=== PATIENT | female | born 1945 | race Caucasian/White ===

== ENCOUNTER 2017-03-10 09:10 | Emergency (ER) | payer MEDICARE, OTHER ==
[~2017-03-10] VITALS: Ht 165.1 cm; Wt 81.0 kg
[~2017-03-10 09:10] MED LIST: AMLO2.5T PO; DONE5TAB14 PO; ECOT81TA2 PO; FERR324T4 PO; HCTZ25 PO; ISOS30 PO; LISI10 PO; PRAV20 PO; RIVA15 PO; SPIR50TA21 PO; SUPETAB30 PO; VITA400D PO
[2017-03-10 09:13] VITALS: BP 137/67; PULSE 42; RESP 18; TEMP 97.7; O2SAT 98
[2017-03-10] MEDS ORDERED: FERR325C (09:25)
[2017-03-10] MEDS ORDERED: DONE10TA7 PO (09:30)
[2017-03-10] MEDS ORDERED: PRAV20TA2 PO (09:30)
[2017-03-10] MEDS ORDERED: JANT2TAB PO (09:30)
[2017-03-10] MEDS ORDERED: SPIR50TA PO (09:30)
[2017-03-10] MEDS ORDERED: ONE-TAB PO (09:30)
[2017-03-10] MEDS ORDERED: METF1000 PO (09:30)
[2017-03-10] MEDS ORDERED: LISI-519 PO (09:30)
[2017-03-10] MEDS ORDERED: CHOL1CAP6 PO (09:30)
[2017-03-10] MEDS ORDERED: hydrALAZINE HCL 20 MG/ML VIAL IV PUSH ONE (09:45)
--- NOTE | 2017-03-10 09:45 | PD ---
HPI Chief Complaint: GI Complaint Time Seen by Provider: 09:20 Travel History International Travel<30 days: No Contact w/Intl Traveler<30days: No Traveled to known affect area: No History of Present Illness HPI 71yo F with PMH of afib on warfarin, HTN, dementia presents to the ED with one episode of NBNB vomiting. Pt denies any fever, dizziness, chest pain, sob, nausea currently, abdominal pain, blood in stool, dysuria, hematuria, focal weakness or numbness. Pt follows with metal coater Dr. Magana. Pt has a history of bradycardia and was evaluated by Dr. Magana in 2014 when she was admitted and pacemaker was not indicated since she is not symptomatic. PFSH Past Medical History Hx Anticoagulant Therapy: Yes (COUMADIN AND XARELTO) Heart Rhythm Problems: No Cancer: No Cardiovascular Problems: Yes ([place], QUADRUPLE BYPASS 2013, A-) High Cholesterol: No Chemotherapy: No Chest Pain: No Congestive Heart Failure: No Cerebrovascular Accident: No Coronary Artery Disease: Yes Dementia: Yes (per family) Diabetes: Yes (TYPE II) Patient Takes Glucophage: Yes Diminished Hearing: No Endocrine: Yes Gastrointestinal Disorders: No Genitourinary: No Hypertension: Yes Immune Disorder: No Musculoskeletal: No Neurologic: No Psychiatric: No Reproductive: No Respiratory: Yes (pulmonary nodule) Renal Failure: Yes (stage 3) Seizures: Yes Influenza Vaccination: Yes ?: Not Past Surgical History Appendectomy: Yes Cholecystectomy: Yes Coronary Artery Bypass Graft: Yes (2013) Other Surgery: Yes Social History Alcohol Use: No Tobacco Use: No (quit 30 yrs ago) Substance Use: No Allergies-Medications (Allergen,Severity, Reaction): Coded Allergies: Codeine (Verified Allergy, Mild, 03/10/17) Penicillin (Verified Allergy, Mild, 03/10/17) Sulfa (Verified Allergy, Mild, 03/10/17) Reported Meds & Prescriptions Reported Meds & Active Scripts Active Reported Vitamin D-3 (Cholecalciferol) 1,000 Unit Cap 1,000 PO DAILY Donepezil 10 Mg Tab 10 Mg PO HS Metformin (Metformin HCl) 1,000 Mg Tab 1,000 Mg PO BIDPC With meals Spironolactone 50 Mg Tab 50 Mg PO DAILY Jantoven (Warfarin) 2 Mg Tab 2 Mg PO DAILY Lisinopril 5 Mg Tab 5 Mg PO DAILY Pravastatin 20 Mg Tab 20 Mg PO HS One-A-Day Essential (Multiple Vitamin) 1 Tab 1 Tab PO DAILY Iron (Ferrous Sulfate) 325 Mg Capsule.er 325 Mg Review of Systems Except as stated in HPI: all other systems reviewed are Neg Physical Exam Narrative GENERAL: 71yo F not in distress. SKIN: Focused skin assessment warm/dry. HEAD: Atraumatic. Normocephalic. EYES: Pupils equal and round. EOMI. No scleral icterus. No injection or drainage. ENT: No nasal bleeding or discharge. Mucous membranes pink and moist. NECK: Trachea midline. No JVD. CARDIOVASCULAR: Regular rate and rhythm. No murmur appreciated. RESPIRATORY: No accessory muscle use. Clear to auscultation. Breath sounds equal bilaterally. GASTROINTESTINAL: Abdomen soft, non-tender, nondistended. No rebound tenderness or guarding. MUSCULOSKELETAL: No obvious deformities. No clubbing. No cyanosis. No edema. NEUROLOGICAL: Awake and alert. No obvious cranial nerve deficits. Motor grossly within normal limits. Normal speech. AAOx3. PSYCHIATRIC: Appropriate mood and affect; insight and judgment normal. Data Data Last Documented VS Vital Signs Date Time Temp Pulse Resp B/P Pulse Ox O2 Delivery O2 Flow Rate FiO2 03/10/17 10:12 52 16 168/87 99 Room Air 03/10/17 09:13 97.7 Orders Electrocardiogram (03/10/17 ) Complete Blood Count With Diff (03/10/17 09:36) Basic Metabolic Panel (Bmp) (03/10/17 09:36) Lipase (03/10/17 09:36) Prothrombin Time / Inr (Pt) (03/10/17 09:36) Act Partial Throm Time (Ptt) (03/10/17 09:36) Hydralazine Inj (Apresoline Inj) (03/10/17 09:45) Labs Laboratory Tests Test 03/10/17 09:30 White Blood Count 10.3 TH/MM3 Red Blood Count 4.10 MIL/MM3 Hemoglobin 12.5 GM/DL Hematocrit 36.9 % Mean Corpuscular Volume 90.0 FL Mean Corpuscular Hemoglobin 30.4 PG Mean Corpuscular Hemoglobin 33.8 % Concent Red Cell Distribution Width 12.9 % Platelet Count 258 TH/MM3 Mean Platelet Volume 9.0 FL Neutrophils (%) (Auto) 69.5 % Lymphocytes (%) (Auto) 21.9 % Monocytes (%) (Auto) 5.4 % Eosinophils (%) (Auto) 2.6 % Basophils (%) (Auto) 0.6 % Neutrophils # (Auto) 7.0 TH/MM3 Lymphocytes # (Auto) 2.3 TH/MM3 Monocytes # (Auto) 0.6 TH/MM3 Eosinophils # (Auto) 0.3 TH/MM3 Basophils # (Auto) 0.1 TH/MM3 CBC Comment DIFF FINAL Differential Comment Prothrombin Time 17.0 SEC Prothromb Time International 1.5 RATIO Ratio Activated Partial 31.5 SEC Thromboplast Time Sodium Level 143 MEQ/L Potassium Level 4.5 MEQ/L Chloride Level 107 MEQ/L Carbon Dioxide Level 28.2 MEQ/L Anion Gap 8 MEQ/L Blood Urea Nitrogen 23 MG/DL Creatinine 0.88 MG/DL Estimat Glomerular Filtration 63 ML/MIN Rate Random Glucose 132 MG/DL Calcium Level 9.5 MG/DL Lipase 224 U/L MDM Medical Decision Making Medical Screen Exam Complete: Yes Emergency Medical Condition: Yes Interpretation(s) EKG: Afib at 46bpm. RBBB. Laboratory Tests Test 03/10/17 09:30 White Blood Count 10.3 TH/MM3 (4.0-11.0) Red Blood Count 4.10 MIL/MM3 (4.00-5.30) Hemoglobin 12.5 GM/DL (11.6-15.3) Hematocrit 36.9 % (35.0-46.0) Mean Corpuscular Volume 90.0 FL (80.0-100.0) Mean Corpuscular Hemoglobin 30.4 PG (27.0-34.0) Mean Corpuscular Hemoglobin 33.8 % Concent (32.0-36.0) Red Cell Distribution Width 12.9 % (11.6-17.2) Platelet Count 258 TH/MM3 (150-450) Mean Platelet Volume 9.0 FL (7.0-11.0) Neutrophils (%) (Auto) 69.5 % (16.0-70.0) Lymphocytes (%) (Auto) 21.9 % (9.0-44.0) Monocytes (%) (Auto) 5.4 % (0.0-8.0) Eosinophils (%) (Auto) 2.6 % (0.0-4.0) Basophils (%) (Auto) 0.6 % (0.0-2.0) Neutrophils # (Auto) 7.0 TH/MM3 (1.8-7.7) Lymphocytes # (Auto) 2.3 TH/MM3 (1.0-4.8) Monocytes # (Auto) 0.6 TH/MM3 (0-0.9) Eosinophils # (Auto) 0.3 TH/MM3 (0-0.4) Basophils # (Auto) 0.1 TH/MM3 (0-0.2) CBC Comment DIFF FINAL Differential Comment Prothrombin Time 17.0 SEC (9.8-11.6) Prothromb Time International 1.5 RATIO Ratio Activated Partial 31.5 SEC Thromboplast Time (24.3-30.1) Sodium Level 143 MEQ/L (136-145) Potassium Level 4.5 MEQ/L (3.5-5.1) Chloride Level 107 MEQ/L (98-107) Carbon Dioxide Level 28.2 MEQ/L (21.0-32.0) Anion Gap 8 MEQ/L (5-15) Blood Urea Nitrogen 23 MG/DL (7-18) Creatinine 0.88 MG/DL (0.50-1.00) Estimat Glomerular Filtration 63 ML/MIN (>89) Rate Random Glucose 132 MG/DL (74-106) Calcium Level 9.5 MG/DL (8.5-10.1) Lipase 224 U/L (73-393) Differential Diagnosis Dehydration vs. electrolyte abnormality Narrative Course 71yo F brought in by son because he saw vomit on her this morning. States he did give her spicy food last night. Pt is AAOx3 but has dementia and states she does not remember when she vomited. Pt has no complaints. Labs reviewed, no leukocytosis. BUN mildly elevated at 23. INR subtherapeutic at 1.5. Explained to son to have her follow up with PMD regarding this. The son mentioned that she had some blood and looked like it was from the vagina. However, pt does not want a pelvic exam. I explained to pt and son to have them follow up with [employer] if she is having postmeopausal bleeding because it could be malignancy. BP was very high with systolic in the 200s and pt was given hydralazine 10mg IV. Repeat blood pressure was 168/87. Pt is still asymptomatic and abdomen is soft, nontender. HemaPrompt Point of Care Internal Pos. & Neg. Controls: Passed Fecal Specimen Occult Blood: Negative Diagnosis Primary Impression: Routine medical exam Patient Instructions: General Instructions Departure Forms: Tests/Procedures Additional Instructions: Please follow up with your upholsterer inside in 1-2 days for vaginal bleeding. Please return to the ED if symptoms worsen. Med/Other Pt SpecificInfo: No Change to Meds Disposition: 01 DISCHARGE HOME Condition: Stable Reyna Ceja DO Mar 10, 2017 09:45
[2017-03-10 10:02] LABS: BASOPHIL # 0.1 TH/MM3 (0-0.2); BASOPHIL % 0.6 % (0.0-2.0); EOSINOPHIL # 0.3 TH/MM3 (0-0.4); EOSINOPHIL % 2.6 % (0.0-4.0); HEMATOCRIT 36.9 % (35.0-46.0); HEMO FLAGS DIFF FINAL; LYMPH % 21.9 % (9.0-44.0); LYMPHOCYTE # 2.3 TH/MM3 (1.0-4.8); MEAN CORPUSCULAR HEMOGLOBIN 30.4 PG (27.0-34.0); MEAN CORPUSCULAR HGB CONC 33.8 % (32.0-36.0); MONO % 5.4 % (0.0-8.0); NEUT % 69.5 % (16.0-70.0); PLATELET COUNT 258 TH/MM3 (150-450); RED CELL DISTRIBUTION WIDTH 12.9 % (11.6-17.2); WHITE BLOOD COUNT 10.3 TH/MM3 (4.0-11.0)
[2017-03-10 10:10] LABS: POTASSIUM 4.5 MEQ/L (3.5-5.1)
[2017-03-10 10:12] VITALS: BP 168/87; PULSE 52; RESP 16; O2SAT 99
[2017-03-10 10:13] LABS: BICARBONATE 28.2 MEQ/L (21.0-32.0)
[2017-03-10 10:14] LABS: APTT (PATIENT) 31.5 SEC (24.3-30.1); INTERNATIONAL NORMALIZED RATIO 1.5 RATIO
[2017-03-10 11:01] VITALS: BP 160/76; PULSE 52; RESP 18; O2SAT 99
--- NOTE | 2017-03-10 13:42 | EKG ---
Date Performed: 03/10/2017 Time Performed: 09:26:14 PTAGE: 71 years EKG: ATRIAL FIBRILLATION WITH SLOW VENTRICULAR RESPONSE RIGHT BUNDLE BRANCH BLOCK ABNORMAL ECG I NTERPRETATION BASED ON A DEFAULT AGE OF 40 YEARS NO SIGNIFICANT CHANGE FROM PRIOR ELECTROCARDIOGRAM. PREVIOUS TRACING : 09/14/2015 18.07 DOCTOR: Andre Felder Interpretating Date/Time 03/10/2017 13:40:27
== END 2017-03-10 11:11 | disposition home or self-care (01) ==
LOC: PHED 09:10
DX: R11.10 Vomiting, unspecified (principal); I48.91 Unspecified atrial fibrillation; I10 Essential (primary) hypertension; F03.90 Unspecified dementia, unspecified severity, without behavioral disturbance, psychotic disturbance, mood disturbance, and anxiety; I25.10 Atherosclerotic heart disease of native coronary artery without angina pectoris; E11.9 Type 2 diabetes mellitus without complications; I45.10 Unspecified right bundle-branch block; N95.0 Postmenopausal bleeding; Z87.891 Personal history of nicotine dependence; Z79.01 Long term (current) use of anticoagulants
CPT/HCPCS: 80048; 83690; 85025; 85610; 85730; 93005; 96374; 99284; J0360

== ENCOUNTER 2017-06-29 11:17 | Emergency (ER) | payer OTHER ==
[~2017-06-29] VITALS: Ht 165.1 cm; Wt 77.2 kg
[~2017-06-29 11:17] MED LIST changes: -AMLO2.5T PO; +CHOL1CAP6 PO; +DONE10TA7 PO; -DONE5TAB14 PO; -ECOT81TA2 PO; -FERR324T4 PO; +FERR325C; -HCTZ25 PO; -ISOS30 PO; +JANT2TAB PO; +LISI-519 PO; -LISI10 PO; +METF1000 PO; +ONE-TAB PO; -PRAV20 PO; +PRAV20TA2 PO; -RIVA15 PO; +SPIR50TA PO; -SPIR50TA21 PO; -SUPETAB30 PO; -VITA400D PO
[2017-06-29 11:41] VITALS: BP 224/89; PULSE 48; RESP 16; TEMP 98.8; O2SAT 98
[2017-06-29] MEDS ORDERED: NIFEdipine 20 MG CAP PO ONE (11:45)
[2017-06-29 11:55] LABS: AUTOMATED NEUTROPHIL # 7.6 TH/MM3 (1.8-7.7); BASOPHIL % 0.5 % (0.0-2.0); EOSINOPHIL # 0.3 TH/MM3 (0-0.4); EOSINOPHIL % 2.6 % (0.0-4.0); HEMO FLAGS DIFF FINAL; LYMPH % 15.4 % (9.0-44.0); LYMPHOCYTE # 1.5 TH/MM3 (1.0-4.8); MEAN CELL VOLUME 88.1 FL (80.0-100.0); MEAN CORPUSCULAR HEMOGLOBIN 30.1 PG (27.0-34.0); MEAN CORPUSCULAR HGB CONC 34.1 % (32.0-36.0); MONO % 3.6 % (0.0-8.0); NEUT % 77.9 % (16.0-70.0); PLATELET COUNT 275 TH/MM3 (150-450); RED BLOOD COUNT 3.87 MIL/MM3 (4.00-5.30); RED CELL DISTRIBUTION WIDTH 12.7 % (11.6-17.2); WHITE BLOOD COUNT 9.7 TH/MM3 (4.0-11.0)
--- NOTE | 2017-06-29 11:57 | PD ---
HPI Chief Complaint: palpitations Time Seen by Provider: 11:32 Travel History International Travel<30 days: No Contact w/Intl Traveler<30days: No Traveled to known affect area: No History of Present Illness HPI This patient started to feel palpitations at home. It just lasted a few brief seconds. She does have history of A. fib on Coumadin. She did not have presyncopal symptoms or any chest pain. She told her son who called paramedics. She arrives very hypertensive and bradycardic. She has not had any headache. She says her palpitations have resolved. Symptoms severity was moderate but very brief. No alleviating factors. No exacerbating factors are obvious. PFSH Past Medical History Hx Anticoagulant Therapy: Yes (COUMADIN AND XARELTO) Heart Rhythm Problems: No Cancer: No Cardiovascular Problems: Yes ([place], QUADRUPLE BYPASS 2013, A-FIB) High Cholesterol: No Chemotherapy: No Chest Pain: No Congestive Heart Failure: No Cerebrovascular Accident: No Coronary Artery Disease: Yes Dementia: Yes (per family) Diabetes: Yes (TYPE II) Diminished Hearing: No Endocrine: Yes Gastrointestinal Disorders: No Genitourinary: No Hypertension: Yes Immune Disorder: No Musculoskeletal: No Neurologic: No Psychiatric: No Reproductive: No Respiratory: Yes (pulmonary nodule) Renal Failure: Yes (stage 3) Seizures: Yes ?: Not Past Surgical History Appendectomy: Yes Cholecystectomy: Yes Coronary Artery Bypass Graft: Yes (2013) Other Surgery: Yes Social History Alcohol Use: No Tobacco Use: No (quit 30 yrs ago) Substance Use: No Allergies-Medications (Allergen,Severity, Reaction): Coded Allergies: Sulfa (Sulfonamide Antibiotics) (Unverified Allergy, Mild, 05/13/17) codeine (Unverified Allergy, Mild, 05/13/17) penicillin G (Unverified Allergy, Mild, 05/13/17) Reported Meds & Prescriptions Reported Meds & Active Scripts Active Reported Jantoven (Warfarin) 2 Mg Tab 2 Mg PO MOWEFRSASU Jantoven (Warfarin) 2.5 Mg Tab 2.5 Mg PO TUTH Vitamin D-3 (Cholecalciferol) 1,000 Unit Cap 1,000 PO DAILY Donepezil 10 Mg Tab 10 Mg PO HS Metformin (Metformin HCl) 1,000 Mg Tab 1,000 Mg PO BIDPC With meals Spironolactone 50 Mg Tab 50 Mg PO DAILY Lisinopril 5 Mg Tab 5 Mg PO DAILY Pravastatin 20 Mg Tab 20 Mg PO HS One-A-Day Essential (Multiple Vitamin) 1 Tab 1 Tab PO DAILY Iron (Ferrous Sulfate) 325 Mg Capsule.er 325 Mg Review of Systems General / Constitutional: No: Fever Eyes: No: Visual changes HENT: No: Headaches Cardiovascular: Positive: Palpitations, Irregular Rhythm, No: Chest Pain or Discomfort Respiratory: No: Shortness of Breath Gastrointestinal: No: Abdominal Pain Genitourinary: No: Dysuria Musculoskeletal: No: Pain Skin: No Rash Neurologic: No: Weakness Psychiatric: No: Depression Endocrine: No: Polydipsia Hematologic/Lymphatic: No: Easy Bruising Physical Exam Narrative GENERAL: Well-nourished, well-developed patient in no apparent distress. SKIN: Focused skin assessment reveals no rash and nodules. Skin is Warm and dry. HEAD: Atraumatic. Normocephalic. EYES: Pupils equal and round. No scleral icterus. No injection or drainage. ENT: No nasal bleeding or discharge. Mucous membranes pink and moist. NECK: Trachea midline. No JVD. CARDIOVASCULAR: Irregularly irregular rhythm. No murmur appreciated. Heart rate is in the mid 40s RESPIRATORY: No accessory muscle use. Clear to auscultation. Breath sounds equal bilaterally. GASTROINTESTINAL: Abdomen soft, non-tender, nondistended. Hepatic and splenic margins not palpable. MUSCULOSKELETAL: No obvious deformities. No clubbing. No cyanosis. No edema. Has sternal scar from bypass grafting NEUROLOGICAL: Awake and alert. No obvious cranial nerve deficits. Motor grossly within normal limits. Normal speech. PSYCHIATRIC: Appropriate mood and affect; insight and judgment may be a bit reduced from dementia Data Data Last Documented VS Vital Signs Date Time Temp Pulse Resp B/P (MAP) Pulse Ox O2 Delivery O2 Flow Rate FiO2 06/29/17 12:53 46 173/66 (101) 97 06/29/17 11:41 98.8 16 Orders Orders Iv Access Insert/Monitor (06/29/17 11:38) Electrocardiogram (06/29/17 ) Manager Financial / Telemetry [email or web address] (06/29/17 11:38) Complete Blood Count With Diff (06/29/17 11:38) Basic Metabolic Panel (Bmp) (06/29/17 11:38) Prothrombin Time / Inr (Pt) (06/29/17 11:38) Nifedipine (Procardia) (06/29/17 12:00) Labs Laboratory Tests Test 06/29/17 11:50 White Blood Count 9.7 TH/MM3 Red Blood Count 3.87 MIL/MM3 Hemoglobin 11.6 GM/DL Hematocrit 34.0 % Mean Corpuscular Volume 88.1 FL Mean Corpuscular Hemoglobin 30.1 PG Mean Corpuscular Hemoglobin Concent 34.1 % Red Cell Distribution Width 12.7 % Platelet Count 275 TH/MM3 Mean Platelet Volume 8.3 FL Neutrophils (%) (Auto) 77.9 % Lymphocytes (%) (Auto) 15.4 % Monocytes (%) (Auto) 3.6 % Eosinophils (%) (Auto) 2.6 % Basophils (%) (Auto) 0.5 % Neutrophils # (Auto) 7.6 TH/MM3 Lymphocytes # (Auto) 1.5 TH/MM3 Monocytes # (Auto) 0.3 TH/MM3 Eosinophils # (Auto) 0.3 TH/MM3 Basophils # (Auto) 0.0 TH/MM3 CBC Comment DIFF FINAL Differential Comment Prothrombin Time 22.8 SEC Prothromb Time International Ratio 2.0 RATIO Blood Urea Nitrogen 20 MG/DL Creatinine 0.88 MG/DL Random Glucose 114 MG/DL Calcium Level 9.2 MG/DL Sodium Level 139 MEQ/L Potassium Level 3.7 MEQ/L Chloride Level 105 MEQ/L Carbon Dioxide Level 25.1 MEQ/L Anion Gap 9 MEQ/L Estimat Glomerular Filtration Rate 63 ML/MIN MDM Medical Decision Making Medical Screen Exam Complete: Yes Emergency Medical Condition: Yes Medical Record Reviewed: Yes Differential Diagnosis A. fib, SVT, ectopy, hypertensive urgency Narrative Course I have reviewed the patient's electronic medical record. Patient takes Coumadin for A. fib. I don't see any rate limiting medications on her medication list. She has accelerated hypertension of 224 systolic I gave her dose of Procardia Will reassess closely I reviewed her EKG which shows A. fib with a slow ventricular response of 44. No ST elevation Extended cardiac monitoring reveals bradycardic A. fib IV placed CBC is normal Metabolic profile is normal Patient is neurologically intact and other than some possible dementia I don't see an acute neurologic issue INR on Coumadin is 2.0 Patient looks clinically well. Repeat blood pressure 160s systolic I reviewed her most recent old EKG which was February 2017. She had A. fib with right bundle-branch block in the 40s just like today. Symptoms have resolved. She feels fine. She is stable for outpatient follow-up Diagnosis Primary Impression: Palpitations Additional Impressions: Chronic atrial fibrillation Accelerated hypertension Additional Instructions: The patient was advised to follow up with their physician and return if they worsen. Check and record blood pressure daily Med/Other Pt SpecificInfo: Other Disposition: 01 DISCHARGE HOME Condition: Stable Nikunj Loving MD Jun 29, 2017 11:57
[2017-06-29] MEDS ORDERED: NIFEdipine 10 MG CAP PO ONE (12:00)
[2017-06-29 12:10] LABS: POTASSIUM 3.7 MEQ/L (3.5-5.1)
[2017-06-29 12:12] LABS: BICARBONATE 25.1 MEQ/L (21.0-32.0)
[2017-06-29 12:13] LABS: PROTHROMBIN TIME - PATIENT 22.8 SEC (9.8-11.6)
[2017-06-29] MEDS ORDERED: JANT2TAB PO (12:18)
[2017-06-29] MEDS ORDERED: JANT2.5T PO (12:18)
[2017-06-29 12:26] VITALS: BP 169/78; PULSE 48; O2SAT 98
[2017-06-29 12:53] VITALS: BP 173/66; PULSE 46; O2SAT 97
--- NOTE | 2017-06-30 19:43 | EKG ---
Date Performed: 06/29/2017 Time Performed: 11:43:32 PTAGE: 72 years EKG: ATRIAL FIBRILLATION WITH SLOW VENTRICULAR RESPONSE RIGHT BUNDLE BRANCH BLOCK ABNORMAL ECG I NTERPRETATION BASED ON A DEFAULT AGE OF 40 YEARS NO PREVIOUS TRACING DOCTOR: Anand Lopez Interpretating Date/Time 06/30/2017 19:38:34
== END 2017-06-29 13:42 | disposition home or self-care (01) ==
LOC: PHED 11:17
DX: R00.2 Palpitations (principal); I48.2 Chronic atrial fibrillation; Z79.01 Long term (current) use of anticoagulants; I25.2 Old myocardial infarction; I25.10 Atherosclerotic heart disease of native coronary artery without angina pectoris; E11.22 Type 2 diabetes mellitus with diabetic chronic kidney disease; I12.9 Hypertensive chronic kidney disease with stage 1 through stage 4 chronic kidney disease, or unspecified chronic kidney disease; N18.3 Chronic kidney disease, stage 3 (moderate); Z87.891 Personal history of nicotine dependence; F03.90 Unspecified dementia, unspecified severity, without behavioral disturbance, psychotic disturbance, mood disturbance, and anxiety; Z88.0 Allergy status to penicillin; Z95.1 Presence of aortocoronary bypass graft
CPT/HCPCS: 80048; 85025; 85610; 93005; 99284

== ENCOUNTER 2018-07-18 10:41 | Inpatient (IN) ==
[2018-07-18] MEDS ORDERED: Tetanus/Diphtheria Toxoid Adult Vaccine Inj 0.5 ML Vial IM ONE (11:08)
--- NOTE | 2018-07-18 11:28 | ED ---
HPI General Chief Complaint: Fall Stated Complaint: Medical Time Seen by Provider: 07/18/18 11:08 Source: patient and EMS Mode of arrival: EMS Limitations: altered mental status History of Present Illness MD complaint: Reports fall Onset (ago): minute(s) Fall from: standing Fall witnessed: yes, by bystander Place fall occurred: other (At a local restaurant) Loss of consciousness: none Prolonged down time: no Symptoms prior to fall: Reports none Context: Reports tripped/slipped Location of injury: Reports head and other (And left elbow, right upper arm) Associated symptoms (after fall): Reports other (Repetitive questions per EVAC. The patient is amnestic for the event. She is unable to tell us her medications.) Related Data Allergies Allergy/AdvReac Type Severity Reaction Status Date / Time codeine Allergy Mild Rash Verified 07/18/18 11:48 penicillin G Allergy Mild Rash Verified 07/18/18 11:48 Sulfa (Sulfonamide Allergy Mild Rash Verified 07/18/18 11:48 Antibiotics) Review of Systems ROS Unobtainable ROS Unobtainable: unobtainable due to mental status [facility] Medical History Medical History Atrial fibrillation (Chronic) Coronary artery disease (Chronic) Diabetes (Chronic) HTN (hypertension) (Chronic) Social History Social History Substance History: No History of Abuse Smoking Status: Never smoker How Often Do You Have a Drink Containing Alcohol: Never Recent Travel in [facility] within the Last 8 Weeks: No Recent Out of Country Travel within the Last 8 Weeks: No Immunization History Tetanus Immunization: Unsure Exam Const General: cooperative, healthy appearing, no acute distress and well developed Orientation: alert, awake and oriented x3 HENMT Head: normal to inspection, normocephalic and laceration (Couple of superficial appearing lacerations above the right eye) Eyes Alignment and Position: alignment normal and position abnormal Conjunctivae: conjunctivae normal Sclera: sclerae normal EOM: EOM intact bilaterally Neck Neck: normal visual inspection and full ROM Chest Chest: normal inspection of the chest Resp Effort & Inspection: normal respiratory effort and able to speak in complete sentences Auscultation: clear to auscultation bilaterally Cardio Rate: regular rate and bradycardic Rhythm: regular rhythm GI Inspection: normal to inspection Palpation: soft Back/Spine/Pelvis Cervical Spine: cervical ROM normal Thoracic/Lumbar Spine: thoraco-lumbar ROM normal Skin General: turgor normal and dry skin Trauma: abrasion (Abrasions to the right shoulder and right elbow) and laceration (Skin tear of the left elbow) Neuro General: alert, awake, oriented x3, moves all extremities and CN's II-XI intact bilaterally Extrem General: normal to inspection and full ROM Right upper extremity: shoulder/upper arm Details: abnormal to inspection, tenderness, abnormal ROM and abrasion; no lacerations Psych Appearance: grossly normal Mental Status: mental status grossly normal Speech and Movement: speech and movement normal Mood: congruent mood Affect: normal affect Attitude: cooperative Thought Process: normal Thought Content: normal Judgment: judgment good Course Consultations Consultation #1: Dr. Polk will admit Time: 13:00 Initial Documented Vital Signs Temperature 97.7 F 07/18/18 10:49 Pulse Rate 46 L 07/18/18 10:49 Respiratory Rate 21 07/18/18 10:49 Blood Pressure 189/79 H 07/18/18 10:49 Pulse Oximetry 100 07/18/18 10:49 Last Documented Vital Signs Temperature 97.7 F 07/18/18 10:49 Pulse Rate 46 L 07/18/18 10:49 Respiratory Rate 21 07/18/18 10:49 Blood Pressure 189/79 H 07/18/18 10:49 Pulse Oximetry 100 07/18/18 10:49 Critical Care Time Critical Care Time: Yes Total Critical Care Time: 45 Attestation: Time to perform other separately billable procedures was not included in the critical care time. My time did not include minutes spent treating any other patients simultaneously or on activities that did not directly contribute to the patient's treatment. The services I provided to this patient were to treat and/or prevent clinically significant deterioration due to head injury, warfarin induced coagulopathy I provided critical care services requiring my management, as noted below: Chart data review, documentation time, medication orders and management, vital sign assessments/reviewing monitor data, ordering and reviewing lab tests, ordering and interpreting/reviewing x-rays and diagnostic studies, care of the patient and discussion of the patient with the admitting physicians Medical Decision Making MDM Narrative Medical decision making narrative: This is a patient who is probably on anticoagulants who presents to us status post a trip and fall with an injury to her head, right upper arm and left elbow. Patient is asking repetitive questions compatible with concussion. She reportedly had no loss of consciousness. Her right upper extremity exam is concerning for a proximal humerus fracture. She has a skin tear on the left elbow. She has superficial lacerations on the right forehead. CT of her head is negative for acute finding. This patient has suffered a concussion, right proximal humerus fracture, left elbow skin tear and has a warfarin induced coagulopathy. I will request admission to observation. Medical Screen Exam Complete: Yes Emergency Medical Condition: Yes Differential Diagnosis Differential Diagnosis: My differential diagnosis of head trauma includes but is not limited to scalp contusion, concussion, intracerebral hemorrhage. Differential diagnosis of extremity trauma includes but is not limited to fracture, sprain or strain, dislocation, contusion Medical Records Medical records reviewed: Yes I reviewed the patient's medical records. This patient has chronic atrial fibrillation and has been on anticoagulants in the past. Lab Data Lab results reviewed: Yes I reviewed the patient's lab results. Result diagrams: 07/18/18 11:20 07/18/18 11:20 Lab Results 07/18/18 07/18/18 07/18/18 Range/Units 11:20 11:20 11:20 WBC 12.9 H (4.0-11.0) th/mm3 RBC 3.91 L (4.00-5.30) mil/mm3 Hgb 12.1 (11.6-15.3) gm/dL Hct 35.8 (35.0-46.0) % MCV 91.4 (80.0-100.0) fL MCH 30.8 (27.0-34.0) pg MCHC 33.7 (32.0-36.0) % RDW 13.5 (11.6-17.2) % Plt Count 296 (150-450) th/mm3 MPV 9.4 (7.0-11.0) fL Neut % (Auto) 73.8 H (16.0-70.0) % Lymph % (Auto) 18.5 (9.0-44.0) % [place] % (Auto) 4.7 (0.0-8.0) % Eos % (Auto) 2.2 (0.0-4.0) % Baso % (Auto) 0.8 (0.0-2.0) % Neut # (Auto) 9.5 H (1.8-7.7) th/mm3 Lymph # (Auto) 2.4 (1.0-4.8) th/mm3 [place] # (Auto) 0.6 (0.0-0.9) th/mm3 Eos # (Auto) 0.3 (0.0-0.4) th/mm3 Baso # (Auto) 0.1 (0.0-0.2) th/mm3 WBC Differential . Differential Comment Auto diff final PT 60.3 H (9.8-11.6) sec INR 6.0 H* Ratio Sodium 141 (136-145) meq/L Potassium 3.6 (3.5-5.1) meq/L Chloride 109 H (98-107) meq/L Carbon Dioxide 22.8 (21.0-32.0) meq/L Anion Gap 9 (5-15) meq/L BUN 24 H (7-18) mg/dL Creatinine 1.09 H (0.50-1.00) mg/dL Estimated GFR 49 L (>89) mL/min Random Glucose 124 H (74-106) mg/dL Calcium 9.5 (8.5-10.1) mg/dL Troponin I 0.05 (0.02-0.05) ng/mL Imaging Data Radiologist's impression: Head CT 07/18/18 11:08 CONCLUSION: 1. Severe periventricular white matter small vessel ischemic changes are noted bilaterally. 2. Prominent ventricles consistent with central cerebral atrophy versus hydrocephalus. Clinical correlation is recommended. 3. No acute infarct, acute hemorrhage, midline shift or extra-axial fluid collections. . Humerus X-Ray 07/18/18 11:28 CONCLUSION: Mildly comminuted fracture of the right humeral head and neck. ECG Data EKG Prior to Arrival: No Attestation: I personally reviewed and interpreted this ECG as follows: (EKG shows bradycardia. Underlying rhythm is atrial fibrillation. Rate is 45. She has a right bundle branch block. No acute ischemic changes.) Discharge Plan Discharge Disposition Patient Disposition: 30 Still Patient Discharge Details Diagnosis: Concussion without loss of consciousness, Fracture, humerus closed, Warfarin- induced coagulopathy, Forehead laceration, Skin tear of elbow without complication Physicians Team ED Provider: Dorothea Diaz Primary Care Provider: George Zuñiga Status ED Status: With Doctor
--- NOTE | 2018-07-18 11:56 | XR ---
EXAM DATE: 07/18/2018 11:28 AM EDT AGE/SEX: 73 years / Female INDICATIONS: Fall. Right shoulder pain. Limited motion. CLINICAL DATA: This is the patient's initial encounter. Patient reports that signs and symptoms have been present for 1 day and indicates a pain score of 10/10. MEDICAL/SURGICAL HISTORY: None. None. COMPARISON: No prior exams available for comparison. FINDINGS: Multiple views of the right humerus were obtained and demonstrate a mildly comminuted fracture deform ity of right humeral head and neck. The main fracture fragment is laterally angulated. There is overl duke soft tissue swelling. There is diffuse osteopenia. The distal humerus is cut off one of the view s and the other is mildly rotated. Distal humerus appears intact. CONCLUSION: Mildly comminuted fracture of the right humeral head and neck. Electronically signed by: Tejas Ramirez MD 07/18/2018 11:55 AM EDT
[2018-07-18 12:07] LABS: Baso # (Auto) 0.1 th/mm3 (0.0-0.2); Baso % (Auto) 0.8 % (0.0-2.0); Eos # (Auto) 0.3 th/mm3 (0.0-0.4); Eos % (Auto) 2.2 % (0.0-4.0); Hematocrit 35.8 % (35.0-46.0); Hemoglobin 12.1 gm/dL (11.6-15.3); Lymph # (Auto) 2.4 th/mm3 (1.0-4.8); Lymph % (Auto) 18.5 % (9.0-44.0); Mean Corpuscular HGB Conc 33.7 % (32.0-36.0); Mean Corpuscular Hemoglobin 30.8 pg (27.0-34.0); Mean Corpuscular Volume 91.4 fL (80.0-100.0); Mean Platelet Volume 9.4 fL (7.0-11.0); Mono # (Auto) 0.6 th/mm3 (0.0-0.9); Mono % (Auto) 4.7 % (0.0-8.0); Neut # (Auto) 9.5 th/mm3 (1.8-7.7); Neut % (Auto) 73.8 % (16.0-70.0); Platelet Count 296 th/mm3 (150-450); Red Blood Count 3.91 mil/mm3 (4.00-5.30); Red Cell Distribution Width 13.5 % (11.6-17.2); White Blood Count 12.9 th/mm3 (4.0-11.0)
[2018-07-18 12:16] LABS: Prothrombin Time 60.3 sec (9.8-11.6)
--- NOTE | 2018-07-18 12:29 | CT ---
EXAM DATE: 07/18/2018 11:17 AM EDT AGE/SEX: 73 years / Female INDICATIONS: Fall, right forehead laceration. Repetitive questioning. CLINICAL DATA: This is the patient's initial encounter. Patient reports that signs and symptoms have been present for 1 day and indicates a pain score of 5/10. MEDICAL/SURGICAL HISTORY: Hypertension. Diabetes. None. RADIATION DOSE: 56.35 CTDI (mGy) COMPARISON: . TECHNIQUE: CT of the head without contrast. Using automated exposure control and adjustment of the mA and/or kV according to patient size, radiation dose was kept as low as reasonably achievable to ob tain optimal diagnostic quality images. DICOM format image data is available electronically for revi ew and comparison. FINDINGS: Cerebrum: Severe periventricular white matter small vessel ischemic changes are noted bilaterally. T he ventricles are prominent consistent with central cerebral atrophy versus hydrocephalus. Clinical c orrelation is recommended. No evidence of midline shift, mass lesion, hemorrhage or acute infarction. No extraaxial fluid collections are seen. Posterior Fossa: The cerebellum and brainstem are intact. The 4th ventricle is midline. The cerebe llopontine angle is unremarkable. Extracranial: The visualized portion of the orbits is intact. Skull: The calvaria is intact. No evidence of skull fracture. CONCLUSION: 1. Severe periventricular white matter small vessel ischemic changes are noted bilaterally. 2. Prominent ventricles consistent with central cerebral atrophy versus hydrocephalus. Clinical adriana elation is recommended. 3. No acute infarct, acute hemorrhage, midline shift or extra-axial fluid collections. . Electronically signed by: Reuben Ventura MD 07/18/2018 12:28 PM EDT
[2018-07-18] MEDS ORDERED: Morphine Inj 4 MG/ML Vial IV.PUSH ONE ×2 (12:36→22:46)
[2018-07-18 12:44] LABS: Calcium 9.5 mg/dL (8.5-10.1); Carbon Dioxide 22.8 meq/L (21.0-32.0); Potassium 3.6 meq/L (3.5-5.1)
[2018-07-18 12:49] LABS: Troponin I 0.05 ng/mL (0.02-0.05)
[2018-07-18] MEDS ORDERED: Acetaminophen 325 MG Tablet PO PRN (14:20)
[2018-07-18] MEDS ORDERED: Phytonadione 2.5 MG/SWFI 2.5 ML Oral Syringe PO ONE (15:42)
[2018-07-18] MEDS ORDERED: Dextrose 50% in Water 50 ML Vial IV.PUSH PRN (15:44)
--- NOTE | 2018-07-18 16:02 | P.HP ---
History of Present Illness Primary Care Physician: George Zuñiga MD Chief Complaint: Fall History of Present Illness: 73-year-old female for past medical history of dementia, paroxysmal A. fib on chronic Coumadin was brought to the ED for evaluation of fall, as a result of which patient complains of right arm pain. Patient has not recollection of the fall, however she denies any head trauma. Per ED physician she was amnesic during her exam. However head CT has no Acute intracranial bleeding. Patient was found to have fracture of right proximal humerus. She was also found to have elevated INR. During my exam, she denies any chest pain or shortness of breath. She was oriented to self, date and place. Review of Systems All other systems reviewed negative except as stated in HPI [facility] - History History Provided By: Patient - Medical History Medical History: Medical History (Last Reviewed 07/24/18 @ 07:46 by Katherin Leon) Diabetes HTN (hypertension) Atrial fibrillation Coronary artery disease - Family History Family History: Family History (Last Updated 07/18/18 @ 16:01 by Anderson Polk MD) Other No cardiac disease - Tobacco History Smoking Status: Never smoker - Alcohol History How Often Do You Have a Drink Containing Alcohol: Never - Substance Use History Substance History: No History of Abuse - Travel History Recent Travel in the [place] Within the Last 8 Weeks: No Recent Travel Out of the Country Within the Last 8 Weeks: No - Immunization History Tetanus Immunization: Unsure Medications and Allergies Active Medications: Active Medications Acetaminophen (Tylenol) 650 mg PO Q4H PRN PRN Reason: Temp > 100.4 Al Hydroxide/Mg Hydroxide (Milk Of Magnesia Liq) 30 ml PO Q12H PRN PRN Reason: Mild Constipation Dextrose (D50w Vial) 50 ml IV.PUSH UNSCH PRN PRN Reason: PER HYPOGLYCEMIA PROTOCOL Glucagon (Glucagon Inj) 1 mg OTHER PRN PRN PRN Reason: for Hypoglycemia Protocol Hydralazine HCl (Apresoline) 25 mg PO TID PRN PRN Reason: SBP>160, DBP>90 Sodium Chloride (Ns Inj) 1,000 mls @ 70 mls/hr IV.CONT .[id number] OSITO Insulin Aspart (Novolog Insulin Correctional Sugar Inj) 0 unit SQ ACHS OSITO; Protocol Lisinopril (Prinivil) 5 mg PO DAILY OSITO Non-Formulary Medication (Donepezil [Donepezil]) 10 mg PO DAILY [facility] Ondansetron HCl (Zofran Inj) 4 mg IV.PUSH Q6H PRN PRN Reason: NAUSEA OR VOMITING Pravastatin Sodium (Pravachol) 20 mg PO DAILY [facility] Sodium Chloride (Ns Flush) 2 ml IV.FLUSH PRN PRN PRN Reason: FLUSH AFTER USING IV ACCESS Last Admin: 07/18/18 12:42 Dose: 2 ml Spironolactone (Aldactone) 50 mg PO DAILY [facility] Allergies Allergy/AdvReac Type Severity Reaction Status Date / Time codeine Allergy Mild Rash Verified 07/18/18 11:48 penicillin G Allergy Mild Rash Verified 07/18/18 11:48 Sulfa (Sulfonamide Allergy Mild Rash Verified 07/18/18 11:48 Antibiotics) Home Medications Medication Instructions Recorded Confirmed Type aspirin [Aspirin Low Dose] 81 mg PO DAILY 07/18/18 07/18/18 History cholecalciferol (vitamin D3) 2,000 unit PO DAILY 07/18/18 07/18/18 History [Vitamin D3] donepezil 10 mg PO DAILY 07/18/18 07/18/18 History lisinopril 5 mg PO DAILY 07/18/18 07/18/18 History metformin 1,000 mg PO BID 07/18/18 07/18/18 History multivitamin 1 tab PO DAILY 07/18/18 07/18/18 History pravastatin 20 mg PO DAILY 07/18/18 07/18/18 History spironolactone 50 mg PO DAILY 07/18/18 07/18/18 History warfarin 2 mg PO 5XW 07/18/18 07/18/18 History warfarin 2.5 mg PO 2XWEEK 07/18/18 07/18/18 History Exam Vital signs: Vital Signs 07/18/18 10:49 07/18/18 13:02 07/18/18 15:31 Temperature 97.7 F 98.4 F Pulse Rate 46 L 50 L 48 L Respiratory Rate 21 19 16 Blood Pressure 189/79 H 171/77 H 193/77 H Pulse Oximetry 100 96 97 Intake & Output 07/17/18 07/18/18 07/18/18 18:59 06:59 18:59 Weight 62.142 kg Narrative: GENERAL: NAD SKIN: Warm and dry. HEAD: Atraumatic. Normocephalic. EYES: Pupils equal and round. No scleral icterus. No injection or drainage. ENT: No nasal bleeding or discharge. Mucous membranes pink and moist. NECK: Trachea midline. No JVD. CARDIOVASCULAR: Regular rate and rhythm. RESPIRATORY: No accessory muscle use. Clear to auscultation. Breath sounds equal bilaterally. GASTROINTESTINAL: Abdomen soft, non-tender, nondistended. Hepatic and splenic margins not palpable. MUSCULOSKELETAL: Extremities without clubbing, cyanosis, or edema. No obvious deformities. NEUROLOGICAL: Awake and alert. No obvious cranial nerve deficits. Motor grossly within normal limits. Five out of 5 muscle strength in the arms and legs. Normal speech. PSYCHIATRIC: Appropriate mood and affect; insight and judgment normal. Results - Labs CBC & Chem 7: 07/24/18 06:22 07/24/18 06:22 Labs: Laboratory Results - last 24 hr 07/18/18 07/18/18 07/18/18 11:20 11:20 11:20 WBC 12.9 H RBC 3.91 L Hgb 12.1 Hct 35.8 MCV 91.4 MCH 30.8 MCHC 33.7 RDW 13.5 Plt Count 296 MPV 9.4 Neut % (Auto) 73.8 H Lymph % (Auto) 18.5 Titus % (Auto) 4.7 Eos % (Auto) 2.2 Baso % (Auto) 0.8 Neut # (Auto) 9.5 H Lymph # (Auto) 2.4 Titus # (Auto) 0.6 Eos # (Auto) 0.3 Baso # (Auto) 0.1 WBC Differential . Differential Comment Auto diff final PT 60.3 H INR 6.0 H* Sodium 141 Potassium 3.6 Chloride 109 H Carbon Dioxide 22.8 Anion Gap 9 BUN 24 H Creatinine 1.09 H Estimated GFR 49 L Random Glucose 124 H Calcium 9.5 Troponin I 0.05 - Imaging Impressions Head CT 07/18/18 11:08 CONCLUSION: 1. Severe periventricular white matter small vessel ischemic changes are noted bilaterally. 2. Prominent ventricles consistent with central cerebral atrophy versus hydrocephalus. Clinical correlation is recommended. 3. No acute infarct, acute hemorrhage, midline shift or extra-axial fluid collections. . Humerus X-Ray 07/18/18 11:28 CONCLUSION: Mildly comminuted fracture of the right humeral head and neck. Caprini VTE Risk Assessment Caprini VTE Risk Assessment: Moderate/High Risk (score >= 2) VTE Pharmacological Exception Reason: Coagulopathy,INR elevated Caprini Risk Assessment Model: Point Value = 1 Point Value = 2 Point Value = 3 Point Value = 5 Age 41-60 Minor surgery BMI > 25 kg/m2 Swollen legs Varicose veins or History of unexplained or recurrent spontaneous Oral contraceptives or hormone replacement Sepsis (< 1 month) Serious lung disease, including pneumonia (< 1 month) Abnormal pulmonary function Acute myocardial infarction Congestive heart failure (< 1 month) History of inflammatory bowel disease Medical patient at bed rest Age 61-74 Arthroscopic surgery Major open surgery (> 45 min) Laparoscopic surgery (> 45 min) Malignancy Confined to bed (> 72 hours) Immobilizing plaster cast Central venous access Age >= 75 History of VTE Family history of VTE Factor V Leiden Prothrombin [id number] Lupus anticoagulant Anticardiolipin antibodies Elevated serum homocysteine Heparin-induced thrombocytopenia Other congenital or acquired thrombophilia Stroke (< 1 month) Elective arthroplasty Hip, pelvis, or leg fracture Acute spinal cord injury (< 1 month) Prophylaxis Regimen: Total Risk Factor Score Risk Level Prophylaxis Regimen 0-1 Low Early ambulation 2 Moderate Order ONE of the following: *Sequential Compression Device (SCD) *Heparin 5000 units SQ BID 3-4 Higher Order ONE of the following medications: *Heparin 5000 units SQ TID *Enoxaparin/Lovenox 40 mg SQ daily (WT < 150 kg, CrCl > 30 mL/min) *Enoxaparin/Lovenox 30 mg SQ daily (WT < 150 kg, CrCl > 10-29 mL/min) *Enoxaparin/Lovenox 30 mg SQ BID (WT < 150 kg, CrCl > 30 mL/min) AND/OR *Sequential Compression Device (SCD) 5 or more Highest Order ONE of the following medications: *Heparin 5000 units SQ TID (Preferred with Epidurals) *Enoxaparin/Lovenox 40 mg SQ daily (WT < 150 kg, CrCl > 30 mL/min) *Enoxaparin/Lovenox 30 mg SQ daily (WT < 150 kg, CrCl > 10-29 mL/min) *Enoxaparin/Lovenox 30 mg SQ BID (WT < 150 kg, CrCl > 30 mL/min) AND *Sequential Compression Device (SCD) Assessment and Plan - Plan 73-year-old female with Coagulopathy Give Vit K 2.5mg PO x 1 Hold Coumadin Monitor INR/PT Right Proximal Humerus Fracture X-ray noted and reviewed by me with finding of Mildly comminuted fracture of the right humeral head and neck 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 fib Secondary to supratherapeutic INR, will hold Coumadin, resume beta-benny Acute renal injury Gentle IV fluid hydration, and avoid all nephrotoxic drug, monitor BUN and creatinine Other chronic medical conditions Resume outpatient medications DVT prophylaxis: Chemical antiplatelet is contraindicated secondary to elevated INR
[2018-07-18] MEDS: Sod Chloride 0.9% Inj 1,000 ML IV.CONT SCH (17:35)
[2018-07-18] MEDS: Insulin NovoLOG Aspart Correctional Sugar Inj SQ SCH ×2 (19:31→21:00)
--- NOTE | 2018-07-18 19:37 | ECG ---
Date Performed: 07/18/2018 Time Performed: 10:51:37 PTAGE: 73 years EKG: ATRIAL FIBRILLATION WITH SLOW VENTRICULAR RESPONSE RIGHT BUNDLE BRANCH BLOCK ST DEPRESSION ABNORMAL ECG PREVIOUS TRACING : 06/29/2017 11.43 Since the previous tracing, no significant change noted DOCTOR: Graham Fallon Interpretating Date/Time 07/18/2018 19:35:39
[2018-07-18] MEDS: hydrALAZINE 25 MG Tablet PO PRN (22:15)
[2018-07-19] MEDS: hydrALAZINE 25 MG Tablet PO PRN (03:42)
[2018-07-19] MEDS ORDERED: Morphine Inj 4 MG/ML Vial IV.PUSH ONE ×3 (03:57→21:47)
[2018-07-19] MEDS: Sod Chloride 0.9% Inj 1,000 ML IV.CONT SCH ×2 (05:31→23:42)
[2018-07-19] MEDS: Insulin NovoLOG Aspart Correctional Sugar Inj SQ SCH ×4 (07:54→21:51)
[2018-07-19] MEDS: Lisinopril 5 MG Tablet PO SCH (09:35)
[2018-07-19] MEDS: Spironolactone 50 MG Tablet PO SCH (09:35)
[2018-07-19 10:40] LABS: Baso # (Auto) 0.1 th/mm3 (0.0-0.2); Baso % (Auto) 0.9 % (0.0-2.0); Eos # (Auto) 0.1 th/mm3 (0.0-0.4); Eos % (Auto) 0.7 % (0.0-4.0); Hematocrit 28.1 % (35.0-46.0); Hemoglobin 10.1 gm/dL (11.6-15.3); Lymph # (Auto) 1.4 th/mm3 (1.0-4.8); Lymph % (Auto) 10.4 % (9.0-44.0); Mean Corpuscular HGB Conc 35.9 % (32.0-36.0); Mean Corpuscular Hemoglobin 32.3 pg (27.0-34.0); Mean Platelet Volume 8.7 fL (7.0-11.0); Mono # (Auto) 0.8 th/mm3 (0.0-0.9); Mono % (Auto) 5.9 % (0.0-8.0); Neut # (Auto) 10.8 th/mm3 (1.8-7.7); Neut % (Auto) 82.1 % (16.0-70.0); Platelet Count 268 th/mm3 (150-450); Red Blood Count 3.12 mil/mm3 (4.00-5.30); Red Cell Distribution Width 13.3 % (11.6-17.2); White Blood Count 13.1 th/mm3 (4.0-11.0)
[2018-07-19 10:49] LABS: INR 4.3 Ratio; Prothrombin Time 43.2 sec (9.8-11.6)
[2018-07-19 11:08] LABS: Alanine Aminotransferase 13 U/L (10-53); Albumin 3.1 g/dL (3.4-5.0); Anion Gap 9 meq/L (5-15); Aspartate Aminotransferase 12 U/L (15-37); Blood Urea Nitrogen 28 mg/dL (7-18); Calcium 8.6 mg/dL (8.5-10.1); Chloride 111 meq/L (98-107); Glomerular Filtration Rate 44 mL/min (>89); Glucose,Random 131 mg/dL (74-106); Potassium 4.3 meq/L (3.5-5.1); Sodium 143 meq/L (136-145)
[2018-07-19 11:09] LABS: Alkaline Phosphatase 81 U/L (45-117); Total Protein 6.2 g/dL (6.4-8.2)
--- NOTE | 2018-07-19 12:20 | P.PN ---
Subjective Interval history: Follow-up for fall, coagulopathy with supratherapeutic INR, forehead lacerations , right humerus fracture. The patient is seen with her brother and sister-in- law at bedside. Patient is currently awake, alert, oriented to self only. She states she is that Dr. Zuñiga's office in the year is 1986. The family at bedside states that this is typical baseline for the patient. Patient complains of pain to her right upper arm. She also has significant oozing from a right temporal facial laceration, and nursing staff has replaced dressing multiple times today. Patient denies any lightheadedness or dizziness currently. Denies any headache or blurred vision. Patient denies any loss of conscious yesterday. The family explains that she tripped over a step going to a restaurant. Family states normally she ambulates independently without difficulty. The patient denies any other medical complaints at this time. Physical Exam Vital signs: Vital Signs 07/18/18 13:02 07/18/18 15:31 07/18/18 20:00 Temperature 98.4 F 98.5 F Pulse Rate 50 L 48 L 56 L Respiratory Rate 19 16 20 Blood Pressure 171/77 H 193/77 H Pulse Oximetry 96 97 95 07/18/18 22:17 07/18/18 23:21 07/19/18 00:21 Temperature 98 F Pulse Rate 45 L Respiratory Rate 18 Blood Pressure 198/82 H 156/64 H Pulse Oximetry 98 07/19/18 03:11 07/19/18 08:00 07/19/18 08:26 Temperature 98.7 F 98.0 F Pulse Rate 55 L 52 L 48 L Respiratory Rate 18 18 Blood Pressure 188/76 H 195/81 H Pulse Oximetry 95 97 Intake & Output 07/18/18 07/19/18 07/19/18 18:59 06:59 18:59 Intake Total 1000 / 1000 Balance 1000 / 1000 Weight 62.142 kg 62.142 kg Intake: IV 1000 / 1000 NS Inj 1,000 ML @ 70 mls/hr IV. 1000 / 1000 CONT .[id number] [facility] Rx#:[id number] Other: Date of Last Bowel Movement 07/18/18 07/18/18 Weight On Admission 62.142 kg Narrative: GENERAL: Well-nourished, well-developed pleasant elderly female patient in [facility]. SKIN: Warm and dry. 2 superficial lacerations above right eyebrow, no active bleeding; however right temporal region with 2 cm laceration and significant oozing. HEENT: Normocephalic. Atraumatic. Pupils equal and round. Mucous membranes pink and moist. CARDIOVASCULAR: Regular rate and rhythm. No murmur appreciated. RESPIRATORY: No accessory muscle use. Clear to auscultation. Breath sounds equal bilaterally. GASTROINTESTINAL: Abdomen soft, non-tender, nondistended. Normoactive bowel sounds x4. MUSCULOSKELETAL: No obvious deformities. Extremities without clubbing, cyanosis , or edema. Right upper extremity in sling, distal sensation/circulation intact , 2+ radial right upper extremity pulse. NEUROLOGICAL: Awake and alert. No obvious cranial nerve deficits. Normal speech. PSYCHIATRIC: Appropriate mood and affect; insight and judgment fair. Results - Labs CBC & Chem 7: 07/19/18 22:10 07/19/18 10:20 Laboratory Results - last 24 hr 07/18/18 07/18/18 07/18/18 11:20 11:20 19:16 WBC RBC Hgb Hct MCV MCH MCHC RDW Plt Count MPV Neut % (Auto) Lymph % (Auto) Borden % (Auto) Eos % (Auto) Baso % (Auto) Neut # (Auto) Lymph # (Auto) Borden # (Auto) Eos # (Auto) Baso # (Auto) WBC Differential Differential Comment PT 60.3 H INR 6.0 H* Sodium 141 Potassium 3.6 Chloride 109 H Carbon Dioxide 22.8 Anion Gap 9 BUN 24 H Creatinine 1.09 H Estimated GFR 49 L POC Glucose 137 H Random Glucose 124 H Calcium 9.5 Total Bilirubin AST ALT Alkaline Phosphatase Troponin I 0.05 Total Protein Albumin 07/18/18 07/19/18 07/19/18 21:33 07:44 10:20 WBC 13.1 H RBC 3.12 L Hgb 10.1 L D Hct 28.1 L MCV 90.0 MCH 32.3 MCHC 35.9 RDW 13.3 Plt Count 268 MPV 8.7 Neut % (Auto) 82.1 H Lymph % (Auto) 10.4 Borden % (Auto) 5.9 Eos % (Auto) 0.7 Baso % (Auto) 0.9 Neut # (Auto) 10.8 H Lymph # (Auto) 1.4 Borden # (Auto) 0.8 Eos # (Auto) 0.1 Baso # (Auto) 0.1 WBC Differential . Differential Comment Auto diff final PT INR Sodium Potassium Chloride Carbon Dioxide Anion Gap BUN Creatinine Estimated GFR POC Glucose 148 H 136 H Random Glucose Calcium Total Bilirubin AST ALT Alkaline Phosphatase Troponin I Total Protein Albumin 07/19/18 07/19/18 10:20 10:20 WBC RBC Hgb Hct MCV MCH MCHC RDW Plt Count MPV Neut % (Auto) Lymph % (Auto) Borden % (Auto) Eos % (Auto) Baso % (Auto) Neut # (Auto) Lymph # (Auto) Borden # (Auto) Eos # (Auto) Baso # (Auto) WBC Differential Differential Comment PT 43.2 H D INR 4.3 Sodium 143 Potassium 4.3 Chloride 111 H Carbon Dioxide 23.0 Anion Gap 9 BUN 28 H Creatinine 1.19 H Estimated GFR 44 L POC Glucose Random Glucose 131 H Calcium 8.6 D Total Bilirubin 0.8 AST 12 L ALT 13 Alkaline Phosphatase 81 Troponin I Total Protein 6.2 L Albumin 3.1 L - Imaging Impressions Head CT 07/18/18 11:08 CONCLUSION: 1. Severe periventricular white matter small vessel ischemic changes are noted bilaterally. 2. Prominent ventricles consistent with central cerebral atrophy versus hydrocephalus. Clinical correlation is recommended. 3. No acute infarct, acute hemorrhage, midline shift or extra-axial fluid collections. . Assessment and Plan - Plan 73-year-old female for past medical history of dementia, paroxysmal A. fib on chronic Coumadin was brought to the ED for evaluation of fall, as a result of which patient complains of right arm pain. Coagulopathy/supratherapeutic INR: INR 6.0 upon arrival -S/p Vit K 2.5mg PO x 1 -Hold Coumadin -Repeat INR today 4.3, will give 2 units of FFP per recommendation of plastic surgery due to significant oozing from facial lacerations -Monitor daily INR/PT -Recommend patient/family have discussion with cardiology regarding continuing anticoagulation as patient is high risk for fall/injury Right Proximal Humerus Fracture: acute, s/p fall -RUE X-ray reviewed, shows mildly comminuted fracture of the right humeral head and neck -Continue sling -Orthopedics consulted -PT/OT consulted Fall/Closed head injury with concussion -Head CT noted and reviewed by me without any intracranial abnormality -Concussion protocol -Fall precaution -Check UA and treat accordingly -PT to treat and eval Paroxysmal A. fib: chronic -EKG reviewed, shows afib with SVR -Currently with supratherapeutic INR and active bleeding, will hold Coumadin -rate controlled EDNA: suspect prerenal secondary to dehydration. Cr 1.19, previously 0.8 in Jun 2017 -Give gentle IV fluid hydration -avoid all nephrotoxins -monitor BUN and creatinine Right Forehead/Temporal Laceration: secondary to fall -temporal laceration continues to ooze significant -discussed with plastics, wound fairly superficial, will see if responds to FFP transfusion, consider Dermabond once oozing improves, otherwise may need to re-eval for suture placement Other chronic medical conditions, stable -Resume outpatient medications DVT prophylaxis: Chemical antiplatelet is contraindicated secondary to elevated INR
[2018-07-19] MEDS ORDERED: Sodium Chlor 0.9% Inj 250 ML IV.SIG SCH (13:00)
--- NOTE | 2018-07-19 20:37 | CT ---
EXAM DATE: 07/19/2018 7:27 PM EDT AGE/SEX: 73 years / Female INDICATIONS: Evaluate right shoulder fracture. CLINICAL DATA: This is the patient's initial encounter. Patient reports that signs and symptoms have been present for 1 day and indicates a pain score of 10/10. MEDICAL/SURGICAL HISTORY: Cardiovascular disease. Diabetes mellitus type II. Hypertension. CABG. RADIATION DOSE: 25.43 CTDI (mGy) COMPARISON: No prior exams available for comparison. TECHNIQUE: Multiple contiguous axial images were acquired using a multirow detector CT scanner witho ut contrast. Multiplanar reconstruction was performed in the sagittal and coronal planes. Using aut omated exposure control and adjustment of the mA and/or kV according to patient size, radiation dose was kept as low as reasonably achievable to obtain optimal diagnostic quality images. DICOM format i mage data is available electronically for review and comparison. FINDINGS: There is a comminuted angulated fracture of the proximal humerus with surrounding soft tissue swellin g. No dislocation at the shoulder joint. No other fractures identified. CONCLUSION: 1. Comminuted humeral neck fracture with mild angular deformity. No dislocation. Electronically signed by: Liang Garcia MD 07/19/2018 8:36 PM EDT
[2018-07-19 22:19] LABS: Hematocrit 22.4 % (35.0-46.0); Hemoglobin 7.9 gm/dL (11.6-15.3)
--- NOTE | 2018-07-19 22:31 | P.CONOP ---
[facility] Orthopedics Consult Note - [facility] Consult date: 07/19/18 Consult reason: fracture Chief complaint: Concussion, warfin-induces coagulopathy, R humerus Narrative: 73 year old female brought to the ED today after she tripped on a curb and fell. Imaging revealed a right proximal humerus fracture. She states her shoulder pain is mild. Pain is improved in the sling. She is right hand dominant. Review of Systems All other systems reviewed negative except as stated in [facility] PMFSH - History History Provided By: Patient - Medical History Medical History: Medical History (Last Reviewed 07/19/18 @ 22:25 by Patricia Orellana MD) Diabetes HTN (hypertension) Atrial fibrillation Coronary artery disease - Family History Family History: Family History (Last Reviewed 07/19/18 @ 22:25 by Patricia Orellana MD) Other No cardiac disease - Social History I have reviewed the patient's Social History: Yes - Tobacco History Second Hand Smoke Exposure: No Smoking Status: Never smoker - Alcohol History How Often Do You Have a Drink Containing Alcohol: Never - Substance Use History Substance History: No History of Abuse - Travel History Recent Travel in the [facility] Within the Last 8 Weeks: No Recent Travel Out of the Country Within the Last 8 Weeks: No - Immunization History Tetanus Immunization: Unsure Medications and Allergies Active Medications: Active Medications Acetaminophen (Tylenol) 650 mg PO Q4H PRN PRN Reason: Temp > 100.4 Al Hydroxide/Mg Hydroxide (Milk Of Magnakin Liq) 30 ml PO Q12H PRN PRN Reason: Mild Constipation Dextrose (D50w Vial) 50 ml IV.PUSH UNSCH PRN PRN Reason: PER HYPOGLYCEMIA PROTOCOL Donepezil HCl (Aricept) 10 mg PO DAILY [facility] Last Admin: 07/19/18 09:35 Dose: 10 mg Glucagon (Glucagon Inj) 1 mg OTHER UNSCH PRN PRN Reason: for Hypoglycemia Protocol Hydralazine HCl (Apresoline) 25 mg PO TID PRN PRN Reason: SBP>160, DBP>90 Last Admin: 07/19/18 03:42 Dose: 25 mg Sodium Chloride (Ns Inj) 1,000 mls @ 70 mls/hr IV.CONT .[id number] OSITO Last Infusion: 07/19/18 07:55 Dose: Infused Sodium Chloride (Ns Inj) 250 mls @ 15 mls/hr IV.SIG ONCE OSITO Stop: 07/20/18 05:39 Last Admin: 07/19/18 15:51 Dose: 15 mls/hr Insulin Aspart (Novolog Insulin Correctional Sugar Inj) 0 unit SQ ACHS [facility]; Protocol Last Admin: 07/19/18 21:51 Dose: 1 unit Lisinopril (Prinivil) 5 mg PO DAILY [facility] Last Admin: 07/19/18 09:35 Dose: 5 mg Ondansetron HCl (Zofran Inj) 4 mg IV.PUSH Q6H PRN PRN Reason: NAUSEA OR VOMITING Last Admin: 07/19/18 00:03 Dose: 4 mg Pravastatin Sodium (Pravachol) 20 mg PO DAILY [facility] Last Admin: 07/19/18 09:35 Dose: 20 mg Sodium Chloride (Ns Flush) 2 ml IV.FLUSH PRN PRN PRN Reason: FLUSH AFTER USING IV ACCESS Last Admin: 07/18/18 12:42 Dose: 2 ml Spironolactone (Aldactone) 50 mg PO DAILY [facility] Last Admin: 07/19/18 09:35 Dose: 50 mg Allergies Allergy/AdvReac Type Severity Reaction Status Date / Time codeine Allergy Mild Rash Verified 07/18/18 11:48 penicillin G Allergy Mild Rash Verified 07/18/18 11:48 Sulfa (Sulfonamide Allergy Mild Rash Verified 07/18/18 11:48 Antibiotics) Home Medications Medication Instructions Recorded Confirmed Type aspirin [Aspirin Low Dose] 81 mg PO DAILY 07/18/18 07/18/18 History cholecalciferol (vitamin D3) 2,000 unit PO DAILY 07/18/18 07/18/18 History [Vitamin D3] donepezil 10 mg PO DAILY 07/18/18 07/18/18 History lisinopril 5 mg PO DAILY 07/18/18 07/18/18 History metformin 1,000 mg PO BID 07/18/18 07/18/18 History multivitamin 1 tab PO DAILY 07/18/18 07/18/18 History pravastatin 20 mg PO DAILY 07/18/18 07/18/18 History spironolactone 50 mg PO DAILY 07/18/18 07/18/18 History warfarin 2 mg PO 5XW 07/18/18 07/18/18 History warfarin 2.5 mg PO 2XWEEK 07/18/18 07/18/18 History Exam Vital signs: Vital Signs 07/18/18 23:21 07/19/18 00:21 07/19/18 03:11 Temperature 98 F 98.7 F Pulse Rate 45 L 55 L Respiratory Rate 18 18 Blood Pressure 156/64 H 188/76 H Pulse Oximetry 98 95 07/19/18 08:00 07/19/18 08:26 07/19/18 12:00 Temperature 98.0 F 98.2 F Pulse Rate 52 L 48 L 62 Respiratory Rate 18 18 Blood Pressure 195/81 H 153/68 H Pulse Oximetry 97 98 07/19/18 15:54 07/19/18 16:18 07/19/18 20:00 Temperature 98.1 F 98.0 F 98.1 F Pulse Rate 54 L 55 L 84 Respiratory Rate 18 16 17 Blood Pressure 195/81 H 149/68 H 195/78 H Pulse Oximetry 98 93 L 07/19/18 20:48 07/19/18 21:07 07/19/18 21:54 Temperature 98.7 F 98.5 F Pulse Rate 72 73 80 Respiratory Rate 19 17 Blood Pressure 144/77 H 147/65 H 141/92 H Pulse Oximetry 97 95 Intake & Output 07/19/18 07/19/18 07/20/18 06:59 18:59 06:59 Intake Total 1000 / 1000 237 / 237 Output Total 0 / 0 Balance 1000 / 1000 237 / 237 Weight 62.142 kg Intake: IV 1000 / 1000 NS Inj 1,000 ML @ 70 mls/hr IV. 1000 / 1000 CONT .[id number] [facility] Rx#:[id number] Other Plasma Thawed 5 Day Acda Unit [id number] Intake (Blood Product) Amt 0 / 0 222 / 222 Plasma Thawed 5 Day Acda Unit 0 / 0 222 / 222 [id number] Plasma Thawed 5 Day Cp2d Unit 0 / 0 [id number] Output: Urine 0 / 0 Other: Date of Last Bowel Movement 07/18/18 07/18/18 07/18/18 Weight On Admission 62.142 kg - Constitutional no acute distress - Routine Neck Exam Present: supple - Routine Respiratory Exam Absent: accessory muscle use - Routine Cardiovascular Exam Present: RRR - Routine Extremities Exam Comments: right shoulder tender to palpation over the proximal humerus. Movement deferred secondary to fracture. Sling in place. Median, radial, ulnar and axillary motor and sensory functions intact. 2+ radial pulse. Remainder of extremities unremarkable. - Routine Neurological Exam Present: alert Results - Labs Result Diagrams: 07/19/18 10:20 07/19/18 10:20 Labs: Laboratory Results - last 24 hr 07/19/18 07/19/18 07/19/18 07:44 10:20 10:20 WBC 13.1 H RBC 3.12 L Hgb 10.1 L D Hct 28.1 L MCV 90.0 MCH 32.3 MCHC 35.9 RDW 13.3 Plt Count 268 MPV 8.7 Neut % (Auto) 82.1 H Lymph % (Auto) 10.4 [place] % (Auto) 5.9 Eos % (Auto) 0.7 Baso % (Auto) 0.9 Neut # (Auto) 10.8 H Lymph # (Auto) 1.4 [place] # (Auto) 0.8 Eos # (Auto) 0.1 Baso # (Auto) 0.1 WBC Differential . Differential Comment Auto diff final PT INR Sodium 143 Potassium 4.3 Chloride 111 H Carbon Dioxide 23.0 Anion Gap 9 BUN 28 H Creatinine 1.19 H Estimated GFR 44 L POC Glucose 136 H Random Glucose 131 H Calcium 8.6 D Total Bilirubin 0.8 AST 12 L ALT 13 Alkaline Phosphatase 81 Total Protein 6.2 L Albumin 3.1 L Blood Bank Comment 07/19/18 07/19/18 07/19/18 10:20 12:16 12:24 WBC RBC Hgb Hct MCV MCH MCHC RDW Plt Count MPV Neut % (Auto) Lymph % (Auto) [place] % (Auto) Eos % (Auto) Baso % (Auto) Neut # (Auto) Lymph # (Auto) [place] # (Auto) Eos # (Auto) Baso # (Auto) WBC Differential Differential Comment PT 43.2 H D INR 4.3 Sodium Potassium Chloride Carbon Dioxide Anion Gap BUN Creatinine Estimated GFR POC Glucose 150 H Random Glucose Calcium Total Bilirubin AST ALT Alkaline Phosphatase Total Protein Albumin Blood Bank Comment 07/19/18 07/19/18 07/19/18 12:25 17:36 21:13 WBC RBC Hgb Hct MCV MCH MCHC RDW Plt Count MPV Neut % (Auto) Lymph % (Auto) [place] % (Auto) Eos % (Auto) Baso % (Auto) Neut # (Auto) Lymph # (Auto) [place] # (Auto) Eos # (Auto) Baso # (Auto) WBC Differential Differential Comment PT INR Sodium Potassium Chloride Carbon Dioxide Anion Gap BUN Creatinine Estimated GFR POC Glucose 151 H 138 H 171 H Random Glucose Calcium Total Bilirubin AST ALT Alkaline Phosphatase Total Protein Albumin Blood Bank Comment - Diagnostic results Imaging: Impressions Shoulder CT 07/19/18 00:00 CONCLUSION: 1. Comminuted humeral neck fracture with mild angular deformity. No dislocation. Shoulder x-ray: image reviewed Shoulder CT: image reviewed Assessment and Plan - Problem List (1) Fracture, humerus closed Code(s): S42.309A - Unspecified fracture of shaft of humerus, unspecified arm, initial encounter for closed fracture Status: Acute Qualifiers: Encounter type: initial encounter Humerus Location: surgical neck Fracture morphology: unspecified fracture morphology Fracture alignment: displaced Laterality: right Qualified Code(s): S42.211A - Unspecified displaced fracture of surgical neck of right humerus, initial encounter for closed fracture - Assessment and Plan 73 year old female with right proximal humerus fracture Plan: I will plan to treat this nonoperatively in a sling. She is nonweightbearing with the right upper extremity at this time. She may come out of the sling for gentle elbow range of motion daily. Follow up in clinic in 2 weeks.
[2018-07-20] MEDS ORDERED: Acetaminophen 325 MG Tablet PO PRN (00:02)
[2018-07-20] MEDS ORDERED: Sodium Chloride 0.9% 2 ML Flush PRN IV.FLUSH (00:08)
[2018-07-20 00:14] LABS: Bacteria,Urine Rare /hpf; Bilirubin,Urine Negative (Negative); Clarity,Urine Clear (Clear); Color,Urine Yellow (Yellw/Straw); Glucose,Urine (UA) Negative (Negative); Leukocyte Esterase,Urine Negative (Negative); Mucus,Urine Few /lpf (Occasional); Nitrite,Urine Negative (Negative); Specific Gravity,Urine 1.024 (1.002-1.035)
[2018-07-20] MEDS ORDERED: Sodium Chlor 0.9% Inj 250 ML IV.SIG SCH (01:00)
[2018-07-20] MEDS: Insulin NovoLOG Aspart Correctional Sugar Inj SQ SCH ×4 (08:35→21:57)
[2018-07-20] MEDS: Lisinopril 5 MG Tablet PO SCH (09:04)
[2018-07-20] MEDS: Spironolactone 50 MG Tablet PO SCH (09:05)
[2018-07-20] MEDS: Sodium Chloride 0.9% 2 ML Flush BID IV.FLUSH SCH ×2 (09:05→21:59)
--- NOTE | 2018-07-20 10:25 | P.PN ---
Subjective Interval history: Follow-up for fall, coagulopathy with supratherapeutic INR, anemia, right humerus fracture, closed head injury. The patient is seen with the nurse at bedside. Patient is currently awake, alert, oriented to self, [facility] , [employer], but not month/year. She admits that she does not remember being in the hospital over the past 2 days. She reports continued pain at her right shoulder/upper arm. RN concerned that the patient became more confused today, repeatedly requesting to get up and use the restroom while already on a bedpan. She denies any other medical complaints including no chest pain, shortness of breath, abdominal pain, nausea/vomiting, diarrhea, or urinary complaints. Physical Exam Vital signs: Vital Signs 07/19/18 12:00 07/19/18 15:54 07/19/18 16:18 Temperature 98.2 F 98.1 F 98.0 F Pulse Rate 62 54 L 55 L Respiratory Rate 18 18 16 Blood Pressure 153/68 H 195/81 H 149/68 H Pulse Oximetry 98 98 07/19/18 20:00 07/19/18 20:48 07/19/18 21:07 Temperature 98.1 F 98.7 F 98.5 F Pulse Rate 84 72 73 Respiratory Rate 17 19 17 Blood Pressure 195/78 H 144/77 H 147/65 H Pulse Oximetry 93 L 97 95 07/19/18 21:54 07/19/18 23:03 07/20/18 03:12 Temperature 98.0 F 97.7 F Pulse Rate 80 56 L 55 L Respiratory Rate 18 14 Blood Pressure 141/92 H 184/74 H 149/68 H Pulse Oximetry 98 97 07/20/18 03:36 07/20/18 04:00 07/20/18 06:02 Temperature 98 F 98.3 F 98.4 F Pulse Rate 67 62 56 L Respiratory Rate 19 19 17 Blood Pressure 143/61 H 152/69 H 155/67 H Pulse Oximetry 95 94 L 94 L 07/20/18 06:20 07/20/18 07:38 07/20/18 08:32 Temperature 98.9 F 98.0 F Pulse Rate 65 61 61 Respiratory Rate 18 20 Blood Pressure 123/57 L 199/91 H Pulse Oximetry 95 96 Intake & Output 07/19/18 07/20/18 07/20/18 18:59 06:59 18:59 Intake Total 1000 / 1000 873 / 873 400 / 400 Output Total 0 / 0 800 / 800 Balance 1000 / 1000 73 / 73 400 / 400 Intake: IV 1000 / 1000 NS Inj 1,000 ML @ 70 mls/hr IV. 1000 / 1000 CONT .[id number] [facility] Rx#:[id number] Other Plasma Thawed 5 Day Acda Unit [id number] Intake (Blood Product) Amt 0 / 0 858 / 858 400 / 400 Plasma Thawed 5 Day Acda Unit 0 / 0 222 / 222 [id number] Plasma Thawed 5 Day Cp2d Unit 236 / 236 [id number] Rbc As-3 Leukoreduced Unit 0 / 0 400 / 400 [id number] Rbc As-3 Leukoreduced Unit 400 / 400 [id number] Output: Urine 0 / 0 800 / 800 Other: Date of Last Bowel Movement 07/18/18 07/18/18 Narrative: GENERAL: Well-nourished, well-developed pleasant elderly female patient in [facility]. SKIN: Warm and dry. 2 superficial lacerations above right eyebrow, no active bleeding; however right temporal region with 2 cm laceration, some minimal oozing today, much improved. HEENT: Normocephalic. Atraumatic. Pupils equal and round. Mucous membranes pink and moist. CARDIOVASCULAR: Regular rate and rhythm. No murmur appreciated. RESPIRATORY: No accessory muscle use. Clear to auscultation. Breath sounds equal bilaterally. GASTROINTESTINAL: Abdomen soft, non-tender, nondistended. Normoactive bowel sounds x4. MUSCULOSKELETAL: No obvious deformities. Extremities without clubbing, cyanosis , or edema. Right upper extremity in sling, distal sensation/circulation intact , 2+ radial right upper extremity pulse. NEUROLOGICAL: Awake and alert, oriented to self and place only. No obvious cranial nerve deficits. Normal speech. PSYCHIATRIC: Appropriate mood and affect; insight and judgment limited. Results - Labs CBC & Chem 7: 07/19/18 22:10 07/19/18 10:20 Laboratory Results - last 24 hr 07/19/18 07/19/18 07/19/18 10:20 10:20 10:20 WBC 13.1 H RBC 3.12 L Hgb 10.1 L D Hct 28.1 L MCV 90.0 MCH 32.3 MCHC 35.9 RDW 13.3 Plt Count 268 MPV 8.7 Neut % (Auto) 82.1 H Lymph % (Auto) 10.4 [place] % (Auto) 5.9 Eos % (Auto) 0.7 Baso % (Auto) 0.9 Neut # (Auto) 10.8 H Lymph # (Auto) 1.4 [place] # (Auto) 0.8 Eos # (Auto) 0.1 Baso # (Auto) 0.1 WBC Differential . Differential Comment Auto diff final PT 43.2 H D INR 4.3 Sodium 143 Potassium 4.3 Chloride 111 H Carbon Dioxide 23.0 Anion Gap 9 BUN 28 H Creatinine 1.19 H Estimated GFR 44 L POC Glucose Random Glucose 131 H Calcium 8.6 D Total Bilirubin 0.8 AST 12 L ALT 13 Alkaline Phosphatase 81 Total Protein 6.2 L Albumin 3.1 L Urine Color Urine Clarity Urine pH Ur Specific [place] Urine Protein Urine Glucose (UA) Urine Ketones Urine Occult Blood Urine Nitrate Urine Bilirubin Urine Urobilinogen Ur Leukocyte Esterase Urine RBC Urine WBC Urine Bacteria Urine Mucus Micro UA Comment Ur Microscopic Review Urine Culture Comments Blood Type Antibody Screen MTS Gel Crossmatch Blood Bank Comment Bld Prod Order Comment 07/19/18 07/19/18 07/19/18 12:16 12:24 12:25 WBC RBC Hgb Hct MCV MCH MCHC RDW Plt Count MPV Neut % (Auto) Lymph % (Auto) [place] % (Auto) Eos % (Auto) Baso % (Auto) Neut # (Auto) Lymph # (Auto) [place] # (Auto) Eos # (Auto) Baso # (Auto) WBC Differential Differential Comment PT INR Sodium Potassium Chloride Carbon Dioxide Anion Gap BUN Creatinine Estimated GFR POC Glucose 150 H 151 H Random Glucose Calcium Total Bilirubin AST ALT Alkaline Phosphatase Total Protein Albumin Urine Color Urine Clarity Urine pH Ur Specific [place] Urine Protein Urine Glucose (UA) Urine Ketones Urine Occult Blood Urine Nitrate Urine Bilirubin Urine Urobilinogen Ur Leukocyte Esterase Urine RBC Urine WBC Urine Bacteria Urine Mucus Micro UA Comment Ur Microscopic Review Urine Culture Comments Blood Type Antibody Screen MTS Gel Crossmatch Blood Bank Comment Bld Prod Order Comment 07/19/18 07/19/18 07/19/18 17:36 21:13 22:10 WBC RBC Hgb 7.9 L D Hct 22.4 L MCV MCH MCHC RDW Plt Count MPV Neut % (Auto) Lymph % (Auto) [place] % (Auto) Eos % (Auto) Baso % (Auto) Neut # (Auto) Lymph # (Auto) [place] # (Auto) Eos # (Auto) Baso # (Auto) WBC Differential Differential Comment PT INR Sodium Potassium Chloride Carbon Dioxide Anion Gap BUN Creatinine Estimated GFR POC Glucose 138 H 171 H Random Glucose Calcium Total Bilirubin AST ALT Alkaline Phosphatase Total Protein Albumin Urine Color Urine Clarity Urine pH Ur Specific [place] Urine Protein Urine Glucose (UA) Urine Ketones Urine Occult Blood Urine Nitrate Urine Bilirubin Urine Urobilinogen Ur Leukocyte Esterase Urine RBC Urine WBC Urine Bacteria Urine Mucus Micro UA Comment Ur Microscopic Review Urine Culture Comments Blood Type Antibody Screen MTS Gel Crossmatch Blood Bank Comment Bld Prod Order Comment 07/19/18 07/20/18 07/20/18 23:35 01:27 08:25 WBC RBC Hgb Hct MCV MCH MCHC RDW Plt Count MPV Neut % (Auto) Lymph % (Auto) [place] % (Auto) Eos % (Auto) Baso % (Auto) Neut # (Auto) Lymph # (Auto) [place] # (Auto) Eos # (Auto) Baso # (Auto) WBC Differential Differential Comment PT INR Sodium Potassium Chloride Carbon Dioxide Anion Gap BUN Creatinine Estimated GFR POC Glucose 148 H Random Glucose Calcium Total Bilirubin AST ALT Alkaline Phosphatase Total Protein Albumin Urine Color Yellow Urine Clarity Clear Urine pH 5.0 Ur Specific [place] 1.024 Urine Protein Negative Urine Glucose (UA) Negative Urine Ketones Trace H Urine Occult Blood Negative Urine Nitrate Negative Urine Bilirubin Negative Urine Urobilinogen 2.0 H Ur Leukocyte Esterase Negative Urine RBC 1 Urine WBC 1 Urine Bacteria Rare H Urine Mucus Few H Micro UA Comment Culture not ind Ur Microscopic Review Not Reportable Urine Culture Comments Culture not ind Blood Type B Positive Antibody Screen Negative MTS Gel Crossmatch See Detail Blood Bank Comment Bld Prod Order Comment - Imaging Head CT 07/18/18 11:08 CONCLUSION: 1. Severe periventricular white matter small vessel ischemic changes are noted bilaterally. 2. Prominent ventricles consistent with central cerebral atrophy versus hydrocephalus. Clinical correlation is recommended. 3. No acute infarct, acute hemorrhage, midline shift or extra-axial fluid collections. Humerus X-Ray 07/18/18 11:28 CONCLUSION: Mildly comminuted fracture of the right humeral head and neck. Shoulder CT 07/19/18 00:00 CONCLUSION: 1. Comminuted humeral neck fracture with mild angular deformity. No dislocation. Assessment and Plan - Plan 73-year-old female for past medical history of dementia, paroxysmal A. fib on chronic Coumadin was brought to the ED for evaluation of fall, as a result of which patient complains of right arm pain. Coagulopathy/supratherapeutic INR: INR 6.0 upon arrival -S/p Vit K 2.5mg PO x 1 -Hold Coumadin -Repeat INR 4.3, given 2 units of FFP per recommendation of plastic surgery due to significant oozing from facial lacerations -Monitor daily INR/PT -Recommend patient/family have discussion with cardiology regarding continuing anticoagulation as patient is high risk for fall/injury Right Proximal Humerus Fracture: acute, s/p fall -RUE X-ray reviewed, shows mildly comminuted fracture of the right humeral head and neck -R Shoulder CT shows Comminuted humeral neck fracture with mild angular deformity. No dislocation. -Continue sling -Orthopedics consulted, nonsurgical, outpatient f/up with ortho in 2 weeks -NWB RUE -PT/OT consulted, recommends rehab, case management to assist with placement Fall/Closed head injury with concussion -Head CT noted and reviewed by me without any intracranial abnormality -Concussion protocol -Fall precaution -UA negative -PT to treat and eval -Neuro checks -Possible increased confusion today, check repeat head CT as patient is at risk for bleeding Acute Blood Loss Anemia: Hgb dropped to 7.9. -given 2 u pRBC transfusion -repeat labs ordered and pending Paroxysmal A. fib: chronic -EKG reviewed, shows afib with SVR -Currently with supratherapeutic INR and active bleeding, holding Coumadin -rate controlled EDNA: suspect prerenal secondary to dehydration. Cr 1.19, previously 0.8 in Jun 2017 -Give gentle IV fluid hydration -avoid all nephrotoxins -monitor BUN and creatinine Right Forehead/Temporal Laceration: secondary to fall -temporal laceration with significant bleeding, discussed with plastics, wound fairly superficial, will see if responds to FFP transfusion, consider Dermabond once oozing improves, otherwise may need to re-eval for suture placement -re-evaluated today, bleeding has subsided s/p FFP and pRBC transfusion, continue to monitor Other chronic medical conditions, stable -Resume outpatient medications DVT prophylaxis: Chemical antiplatelet is contraindicated secondary to elevated INR Discharge Planning: Not yet ready for discharge. Checking repeat Head CT to rule out bleeding. Awaiting repeat labs today. Case management to assist with arranging rehab placement upon discharge.
[2018-07-20] MEDS: Sod Chloride 0.9% Inj 1,000 ML IV.CONT SCH (12:54)
--- NOTE | 2018-07-20 15:15 | CT ---
EXAM DATE: 07/20/2018 2:19 PM EDT AGE/SEX: 73 years / Female INDICATIONS: Increased confusion today. CLINICAL DATA: This is the patient's initial encounter. Patient reports that signs and symptoms have been present for 1 day and indicates a pain score of 4/10. MEDICAL/SURGICAL HISTORY: Hypertension. Cardiovascular disease. Diabetes. None. RADIATION DOSE: 48.86 CTDI (mGy) COMPARISON: [facility] [place], CT HEAD W/O CONTRAST, 07/18/2018. . TECHNIQUE: CT of the head without contrast. Using automated exposure control and adjustment of the mA and/or kV according to patient size, radiation dose was kept as low as reasonably achievable to ob tain optimal diagnostic quality images. DICOM format image data is available electronically for revi ew and comparison. FINDINGS: Cerebrum: The ventricles are normal for age. There is stable bilateral cortical atrophy and chronic white matter changes. No evidence of midline shift, mass lesion or acute infarction. . There is a Ne w right acute focal parafalcine subdural hematoma posteriorly measuring 1.1 cm in thickness. Posterior Fossa: The cerebellum and brainstem are intact. The 4th ventricle is midline. The cerebe llopontine angle is unremarkable. Extracranial: The visualized portion of the orbits is intact. Skull: The calvaria is intact. No evidence of skull fracture. CONCLUSION: 1. New focal acute parafalx subdural hematoma posteriorly on the right side measuring 1.1 cm in thic kness. No evidence of any significant mass effect or midline shift. . Electronically signed by: Christopher Thao MD 07/20/2018 3:13 PM EDT
[2018-07-20 19:46] LABS: Baso # (Auto) 0.1 th/mm3 (0.0-0.2); Baso % (Auto) 0.4 % (0.0-2.0); Eos % (Auto) 0.1 % (0.0-4.0); Hematocrit 33.1 % (35.0-46.0); Hemoglobin 11.3 gm/dL (11.6-15.3); Lymph # (Auto) 0.8 th/mm3 (1.0-4.8); Lymph % (Auto) 4.8 % (9.0-44.0); Mean Corpuscular Hemoglobin 30.4 pg (27.0-34.0); Mean Corpuscular Volume 89.6 fL (80.0-100.0); Mean Platelet Volume 9.4 fL (7.0-11.0); Mono # (Auto) 0.8 th/mm3 (0.0-0.9); Mono % (Auto) 4.4 % (0.0-8.0); Neut % (Auto) 90.3 % (16.0-70.0); Platelet Count 221 th/mm3 (150-450); Red Cell Distribution Width 13.9 % (11.6-17.2); White Blood Count 17.7 th/mm3 (4.0-11.0)
[2018-07-20 19:57] LABS: INR 2.4 Ratio; Prothrombin Time 24.1 sec (9.8-11.6)
[2018-07-20 20:08] LABS: Calcium 8.4 mg/dL (8.5-10.1); Carbon Dioxide 22.1 meq/L (21.0-32.0)
[2018-07-20 20:25] LABS: Lymphocytes 5 % (9-44); Metamyelocytes 1 % (0-1); Monocytes 3 % (0-8)
[2018-07-20 20:26] LABS: Platelet Estimate Normal (Normal); Platelet Morphology Normal (Normal); RBC Morphology Normal (Normal)
[2018-07-21] MEDS: hydrALAZINE 25 MG Tablet PO PRN ×2 (05:51→12:49)
[2018-07-21] MEDS: Sod Chloride 0.9% Inj 1,000 ML IV.CONT SCH ×2 (05:52→15:00)
[2018-07-21 07:42] LABS: INR 2.6 Ratio
--- NOTE | 2018-07-21 08:38 | P.PN ---
Subjective Interval history: In bed. Patient is more awake and alert today. no new motor or sensory deficit. some headache. No change in vision , no problems with swallowing Patient is alert and oriented x 3 ( full name, , names the president, location ) Not oriented by time INR is however still elevated and risk of bleeding is still high, will move patient to ICU for close obs for 24 hrs , consult neurosurgery, give 1U FFP and vit K . Physical Exam Vital signs: Vital Signs 07/20/18 12:12 07/20/18 16:17 07/20/18 20:49 Temperature 97.9 F 97.7 F Pulse Rate 63 58 L 89 Respiratory Rate 18 16 Blood Pressure 205/84 H 133/96 H 175/75 H Pulse Oximetry 97 95 95 07/20/18 22:50 07/21/18 04:00 07/21/18 05:34 Temperature 98.9 F Pulse Rate 63 Respiratory Rate 16 Blood Pressure 131/93 H 185/109 H 170/73 H Pulse Oximetry 98 07/21/18 05:52 07/21/18 08:00 07/21/18 08:30 Temperature 98.2 F Pulse Rate 56 L 56 L 54 L Respiratory Rate 18 Blood Pressure 178/117 H 179/68 H Pulse Oximetry 98 Intake & Output 07/20/18 07/21/18 07/21/18 18:59 06:59 18:59 Intake Total 475 / 475 Output Total 50 / 50 100 / 100 Balance 425 / 425 -100 / -100 Intake: IV 75 / 75 NS Inj 250 ML @ 15 mls/hr IV. 75 / 75 SIG ONCE OSITO Rx#:[id number] Intake (Blood Product) Amt 400 / 400 Rbc As-3 Leukoreduced Unit 400 / 400 [id number] Output: Urine 50 / 50 100 / 100 Other: # Voids 1 Date of Last Bowel Movement 07/20/18 07/20/18 # Bowel Movements 1 Narrative: GENERAL: Pleasant 73 yo F, well-nourished, well-developed female , appears in NAD. SKIN: Warm and dry. 2 superficial lacerations above right eyebrow, no active bleeding; right temporal region with 2 cm laceration, some minimal oozing, improved significantly. HEENT: Normocephalic. Pupils equal and round. Mucous membranes pink and moist. CARDIOVASCULAR: Regular rate and rhythm. No murmur appreciated. RESPIRATORY: No accessory muscle use. Clear to auscultation. Breath sounds equal bilaterally. GASTROINTESTINAL: Abdomen soft, non-tender, nondistended. Normoactive bowel sounds x4. MUSCULOSKELETAL: No obvious deformities. Extremities without clubbing, cyanosis , or edema. Right upper extremity in sling, neurovascular intact. NEUROLOGICAL: Awake and alert, oriented to self and place , president. Follows commands. Strength normal in upper and lower extremities. No obvious cranial nerve deficits. Normal speech. PSYCHIATRIC: Appropriate mood and affect; insight and judgment limited. Results - Labs CBC & Chem 7: 07/20/18 18:30 07/20/18 18:30 Laboratory Results - last 24 hr 07/20/18 07/20/18 07/20/18 01:27 12:47 18:00 WBC RBC Hgb Hct MCV MCH MCHC RDW Plt Count MPV Prelim Diff (Auto) Neut % (Auto) Lymph % (Auto) [place] % (Auto) Eos % (Auto) Baso % (Auto) Neut # (Auto) Lymph # (Auto) [place] # (Auto) Eos # (Auto) Baso # (Auto) WBC Differential Seg Neuts % (Manual) Band Neuts % (Manual) Lymphocytes % (Manual) Monocytes % (Manual) Basophils % (Manual) Metamyelocytes % (Man) Abs Neuts (Manual) Differential Comment Platelet Estimate Platelet Morphology RBC Morphology PT INR Sodium Potassium Chloride Carbon Dioxide Anion Gap BUN Creatinine Estimated GFR POC Glucose 138 H 162 H Random Glucose Calcium MTS Gel Crossmatch See Detail 07/20/18 07/20/18 07/20/18 18:01 18:30 18:30 WBC 17.7 H RBC 3.70 L Hgb 11.3 L D Hct 33.1 L MCV 89.6 MCH 30.4 MCHC 34.0 RDW 13.9 Plt Count 221 MPV 9.4 Prelim Diff (Auto) Slide review pending Neut % (Auto) 90.3 H Lymph % (Auto) 4.8 L [place] % (Auto) 4.4 Eos % (Auto) 0.1 Baso % (Auto) 0.4 Neut # (Auto) 16.0 H Lymph # (Auto) 0.8 L [place] # (Auto) 0.8 Eos # (Auto) 0.0 Baso # (Auto) 0.1 WBC Differential Manual diff final Seg Neuts % (Manual) 83 H Band Neuts % (Manual) 7 H Lymphocytes % (Manual) 5 L Monocytes % (Manual) 3 Basophils % (Manual) 1 Metamyelocytes % (Man) 1 Abs Neuts (Manual) 16.1 H Differential Comment . Platelet Estimate Normal Platelet Morphology Normal RBC Morphology Normal PT 24.1 H D INR 2.4 Sodium Potassium Chloride Carbon Dioxide Anion Gap BUN Creatinine Estimated GFR POC Glucose 181 H Random Glucose Calcium MTS Gel Crossmatch 07/20/18 07/20/18 07/21/18 18:30 21:51 06:40 WBC RBC Hgb Hct MCV MCH MCHC RDW Plt Count MPV Prelim Diff (Auto) Neut % (Auto) Lymph % (Auto) [place] % (Auto) Eos % (Auto) Baso % (Auto) Neut # (Auto) Lymph # (Auto) [place] # (Auto) Eos # (Auto) Baso # (Auto) WBC Differential Seg Neuts % (Manual) Band Neuts % (Manual) Lymphocytes % (Manual) Monocytes % (Manual) Basophils % (Manual) Metamyelocytes % (Man) Abs Neuts (Manual) Differential Comment Platelet Estimate Platelet Morphology RBC Morphology PT 26.0 H INR 2.6 Sodium 141 Potassium 4.0 Chloride 107 Carbon Dioxide 22.1 Anion Gap 12 BUN 28 H Creatinine 1.06 H Estimated GFR 51 L POC Glucose 162 H Random Glucose 158 H Calcium 8.4 L MTS Gel Crossmatch 07/21/18 07:49 WBC RBC Hgb Hct MCV MCH MCHC RDW Plt Count MPV Prelim Diff (Auto) Neut % (Auto) Lymph % (Auto) [place] % (Auto) Eos % (Auto) Baso % (Auto) Neut # (Auto) Lymph # (Auto) [place] # (Auto) Eos # (Auto) Baso # (Auto) WBC Differential Seg Neuts % (Manual) Band Neuts % (Manual) Lymphocytes % (Manual) Monocytes % (Manual) Basophils % (Manual) Metamyelocytes % (Man) Abs Neuts (Manual) Differential Comment Platelet Estimate Platelet Morphology RBC Morphology PT INR Sodium Potassium Chloride Carbon Dioxide Anion Gap BUN Creatinine Estimated GFR POC Glucose 162 H Random Glucose Calcium MTS Gel Crossmatch - Imaging Impressions Head CT 07/20/18 00:00 CONCLUSION: 1. New focal acute parafalx subdural hematoma posteriorly on the right side measuring 1.1 cm in thickness. No evidence of any significant mass effect or midline shift. . Assessment and Plan - Plan 73-year-old female for past medical history of dementia, paroxysmal A. fib on chronic Coumadin was brought to the ED for evaluation of fall, as a result of which patient complains of right arm pain. Coagulopathy/supratherapeutic INR: INR 6.0 upon arrival -S/p Vit K 2.5mg PO x 1 on admission. -Hold Coumadin -Repeat INR 4.3, ( 07/20) given 2 units of FFP per recommendation of plastic surgery due to significant oozing from facial lacerations. Patient with subdural hematoma on repeat CT head 07/20/18. -Repeat INR 07/21 is however still elevated and risk of bleeding is still high, will move patient to ICU for close obs for 24 hrs , consult neurosurgery, give 1U FFP, vit K 5 mg once, continue to monitor INR. -Monitor daily INR/PT -Recommend patient/family have discussion with cardiology regarding continuing anticoagulation as patient is high risk for fall/injury Parafalx subdural hematoma posteriorly on the right side of 1.[address] head reviewed and findings discussed with the patient : New focal acute parafalx subdural hematoma posteriorly on the right side measuring 1.1 cm in thickness. No evidence of any significant mass effect or midline shift. -Repeat INR is however still elevated and risk of bleeding is still high, will move patient to ICU for close obs for 24 hrs , consult neurosurgery, give 1U FFP, vit K 5 mg once, continue to monitor INR. Right Proximal Humerus Fracture: acute, s/p fall -RUE X-ray reviewed, shows mildly comminuted fracture of the right humeral head and neck -R Shoulder CT shows Comminuted humeral neck fracture with mild angular deformity. No dislocation. -Continue sling -Orthopedics consulted, nonsurgical, outpatient f/up with ortho in 2 weeks -NWB RUE -PT/OT consulted, recommends rehab, case management to assist with placement Fall/Closed head injury with concussion -Head CT noted and reviewed by me without any intracranial abnormality -Concussion protocol -Fall precaution -UA negative -PT to treat and eval -Neuro checks -Possible increased confusion today, check repeat head CT as patient is at risk for bleeding Acute Blood Loss Anemia: Hgb dropped to 7.9. -given 2 u pRBC transfusion -repeat labs ordered and pending Paroxysmal A. fib: chronic -EKG reviewed, shows afib with SVR -Currently with supratherapeutic INR and active bleeding, holding Coumadin -rate controlled EDNA: suspect prerenal secondary to dehydration. Cr 1.19, previously 0.8 in Jun 2017 -Give gentle IV fluid hydration -avoid all nephrotoxins -monitor BUN and creatinine Right Forehead/Temporal Laceration: secondary to fall -temporal laceration with significant bleeding, discussed with plastics, wound fairly superficial, will see if responds to FFP transfusion, consider Dermabond once oozing improves, otherwise may need to re-eval for suture placement -re-evaluated today, bleeding has subsided s/p FFP and pRBC transfusion, continue to monitor Other chronic medical conditions, stable -Resume outpatient medications DVT prophylaxis: Chemical antiplatelet is contraindicated secondary to elevated INR Case management consulted to assist with arranging rehab placement upon discharge. Discharge Planning: Not ready for discharge. Repeat Head CT with 1.1 bleeding. INR is however still elevated and risk of bleeding is still high, will move patient to ICU for close obs for 24 hrs , consult neurosurgery, give 1U FFP, vit K 5 mg once, monitor INR. Discussed with the patient, nurse
[2018-07-21] MEDS ORDERED: Sodium Chlor 0.9% Inj 250 ML IV.SIG SCH (09:00)
[2018-07-21] MEDS: Spironolactone 50 MG Tablet PO SCH (09:36)
[2018-07-21] MEDS: Lisinopril 5 MG Tablet PO SCH (09:36)
[2018-07-21] MEDS: Insulin NovoLOG Aspart Correctional Sugar Inj SQ SCH ×4 (09:38→21:28)
[2018-07-21] MEDS: Sodium Chloride 0.9% 2 ML Flush BID IV.FLUSH SCH ×2 (09:38→20:36)
[2018-07-21] MEDS ORDERED: Phytonadione 5 MG/SWFI 5 ML Oral Syringe PO ONE (10:00)
--- NOTE | 2018-07-21 13:11 | P.CONNS ---
History of Present Illness Service: Neurosurgery Consult date: 07/21/18 Requesting Physician: Donna Hernadez Reason for Consult: Acute subdural hemorrhage Primary Care Provider: George Zuñiga MD Chief Complaint: Fall History of Present Illness: 73-year-old female who presented to the emergency room at [facility] 3 days ago after a trip and fall. She is amnestic of the event. She is on chronic Coumadin therapy for atrial fibrillation and had supratherapeutic INR on presentation and her Coumadin has been withheld since her presentation. CT scan of the head obtained in initial presentation was read as negative but in retrospect does not appear to have a small occipital interhemispheric acute subdural hemorrhage. Follow-up CT scan of the head obtained yesterday reveals slight enlargement of this interhemispheric occipital subdural hemorrhage now measuring 1.1 cm in maximal thickness. Neurosurgery has been consulted today and she has been transferred to the surgical intensive care unit for close observation. Her PT/INR remain elevated INR being corrected. Her main complaint is her right arm pain related to the humerus fracture for which orthopedic surgeon has recommended conservative management. Review of Systems Constitutional: Denies anorexia, Denies body ache(s), Denies chills, Denies daytime sleepiness, Denies excessive sweating, Denies fatigue, Denies fever(s), Denies headache(s), Denies increased appetite, Denies lack of energy, Denies malaise, Denies night sweats, Denies weakness, Denies weight gain, Denies weight loss, Denies other Eyes: Denies blind spots, Denies blurry vision, Denies bulging eyes, Denies change in vision, Denies double vision, Denies discharge, Denies dry eyes, Denies floaters, Denies irritation, Denies itchy eyes, Denies loss of vision, Denies pain, Denies requires corrective lenses, Denies sensitivity to light, Denies other Ears, Nose, Mouth, and Throat: Denies abnormal hearing, Denies bleeding gums, Denies bad breath, Denies change in voice, Denies dental pain, Denies difficulty swallowing, Denies dizziness, Denies dry mouth, Denies ear discharge , Denies ear pain, Denies facial pain, Denies headache(s), Denies hearing loss, Denies hoarseness, Denies lip swelling, Denies nosebleed, Denies mouth lesions, Denies mouth pain, Denies nasal congestion, Denies nasal discharge, Denies nasal obstruction, Denies nasal trauma, Denies neck lump, Denies neck pain, Denies nose pain, Denies pain with swallowing, Denies poor balance, Denies post nasal drip, Denies ringing in the ears, Denies sinus pain, Denies sinus pressure , Denies sore throat, Denies throat swelling, Denies tongue swelling, Denies other Cardiovascular: Denies chest pain, Denies chest pain at rest, Denies chest pain with activity, Denies excessive sweating, Denies fainting, Denies fast heart rate, Denies foot swelling, Denies generalized swelling, Denies irregular heart rhythm, Denies leg pain with activity, Denies leg sores, Denies leg swelling, Denies lightheadedness, Denies radiating jaw, neck or arm pain, Denies rapid, pounding, or irregular heartbeat, Denies shortness of breath, Denies shortness of breath with activity, Denies shortness of breath when lying down, Denies shortness of breath causing sudden awakening, Denies slow heart rate, Denies other Respiratory: Denies change in phlegm color, Denies chest congestion, Denies cough, Denies coughing up blood, Denies excessive phlegm production, Denies pain on inspiration, Denies pain with cough, Denies shortness of breath, Denies shortness of breath with activity, Denies snoring, Denies stridor, Denies wheezing, Denies other Gastrointestinal: Denies abdominal pain, Denies belching, Denies black, tarry stools, Denies bloating, Denies bright, red blood in stools, Denies change in bowel habits, Denies constant urge to pass stool, Denies change in stools, Denies coffee ground vomit, Denies constipation, Denies cramping, Denies difficulty swallowing, Denies excessive passing of gas, Denies feeling full early, Denies heartburn, Denies incontinent of stools, Denies loose stools, Denies nausea, Denies pain with swallowing, Denies vomiting, Denies vomiting blood, Denies other Genitourinary: Denies abnormal periods, Denies abnormal vaginal bleeding, Denies absent period, Denies bleeding between periods, Denies blood in urine, Denies difficulty starting urination, Denies difficulty urinating, Denies dribbling after urination, Denies frequent nighttime urination, Denies genital itching, Denies genital lesions, Denies heavy periods, Denies hot flashes, Denies light periods, Denies nipple discharge, Denies painful intercourse, Denies painful periods, Denies painful urination, Denies pelvic pain, Denies prolapse symptoms, Denies sexual problems, Denies side pain, Denies urinary incontinence, Denies urinary urgency, Denies vaginal discharge, Denies vaginal dryness, Denies vaginal odor, Denies vaginal itching, Denies other Musculoskeletal: Reports radiating pain into limb (Right arm pain due to humerus fracture), Denies abnormal walking, Denies back pain, Denies body aches , Denies decreased muscle mass, Denies deformity, Denies joint pain, Denies joint swelling, Denies limited joint movement, Denies loss of height, Denies muscle cramps, Denies muscle weakness, Denies neck pain, Denies numbness, Denies stiffness, Denies tingling, Denies other Skin/Breast: Denies acne, Denies bleeding lesions, Denies boil, Denies breast swelling, Denies breast skin changes, Denies breast pain, Denies breast lump, Denies change in breast shape, Denies change in hair, Denies change in skin color, Denies changing lesions, Denies dry skin, Denies excessive hair growth, Denies hair loss, Denies itching, Denies lesions, Denies nail changes, Denies new lesions, Denies nipple discharge, Denies non-healing lesions, Denies redness , Denies sensitivity to light, Denies rash, Denies skin pain, Denies skin ulcer , Denies sores, Denies stretch tellez, Denies unusual bruising, Denies wounds, Denies yellowing of the skin, Denies other Neurologic: Denies abnormal hearing, Denies abnormal movements, Denies abnormal speech, Denies abnormal walking, Denies behavioral changes, Denies burning sensations, Denies confusion, Denies dizziness, Denies fainting, Denies frequent falls, Denies headache(s), Denies lack of coordination, Denies localized weakness, Denies loss of vision, Denies memory loss, Denies numbness, Denies other visual disturbances, Denies radiating pain, Denies restless legs, Denies convulsions, Denies seizure-like activity, Denies sensory deficit, Denies tingling, Denies tingling/numbness/burning sensations, Denies tremor(s), Denies unsteadiness, Denies weakness, Denies other Psychiatric: Denies abnormal sleep pattern, Denies anxiety, Denies behavioral changes, Denies change in appetite, Denies change in sex drive, Denies confusion , Denies depression, Denies difficulty concentrating, Denies hearing things others do not hear, Denies hopelessness, Denies irritability, Denies lack of enjoyment, Denies memory loss, Denies mood swings, Denies panic attacks, Denies paranoia, Denies seeing things others do not see, Denies sensing things others do not sense, Denies tactile hallucinations, Denies thoughts of hurting/killing others, Denies thoughts of hurting/killing yourself, Denies other Endocrine: Denies cold intolerance, Denies excessive sweating, Denies flushing, Denies heat intolerance, Denies increased hunger, Denies increased thirst, Denies increased urination, Denies rapid, pounding, or irregular heartbeat, Denies other Hematologic/Lymphatic: Reports easy bleeding, Reports easy bruising, Denies enlarged lymph nodes, Denies other PMFSH - History History Provided By: Patient - Medical History Medical History: Medical History (Last Reviewed 07/21/18 @ 13:05 by Edilberto Hernandez MD) Diabetes HTN (hypertension) Atrial fibrillation Coronary artery disease - Family History Family History: Family History (Last Reviewed 07/21/18 @ 13:05 by Edilberto Hernandez MD) Other No cardiac disease - Tobacco History Second Hand Smoke Exposure: No Smoking Status: Never smoker - Alcohol History How Often Do You Have a Drink Containing Alcohol: Never - Substance Use History Substance History: No History of Abuse - Travel History Recent Travel in the [place] Within the Last 8 Weeks: No Recent Travel Out of the Country Within the Last 8 Weeks: No - Immunization History Tetanus Immunization: Unsure Medications and Allergies Active Medications: Active Medications Acetaminophen (Tylenol) 650 mg PO Q4H PRN PRN Reason: Temp > 100.4 Acetaminophen (Tylenol) 650 mg PO Q4H PRN PRN Reason: SEE LABEL COMMENTS Al Hydroxide/Mg Hydroxide (Milk Of Magnesia Liq) 30 ml PO Q12H PRN PRN Reason: Mild Constipation Dextrose (D50w Vial) 50 ml IV.PUSH UNSCH PRN PRN Reason: PER HYPOGLYCEMIA PROTOCOL Diphenhydramine HCl (Benadryl) 25 mg PO Q4H PRN PRN Reason: SEE LABEL COMMENTS Donepezil HCl (Aricept) 10 mg PO DAILY [facility] Last Admin: 07/21/18 09:36 Dose: 10 mg Glucagon (Glucagon Inj) 1 mg OTHER UNSCH PRN PRN Reason: for Hypoglycemia Protocol Hydralazine HCl (Apresoline) 25 mg PO TID PRN PRN Reason: SBP>160, DBP>90 Last Admin: 07/21/18 12:49 Dose: 25 mg Sodium Chloride (Ns Inj) 1,000 mls @ 70 mls/hr IV.CONT .[id number] [facility] Last Infusion: 07/21/18 09:39 Dose: Infused Sodium Chloride (Ns Inj) 250 mls @ 15 mls/hr IV.SIG ONCE [facility] Stop: 07/22/18 01:39 Last Admin: 07/21/18 12:44 Dose: Not Given Insulin Aspart (Novolog Insulin Correctional Sugar Inj) 0 unit SQ ACHS [facility]; Protocol Last Admin: 07/21/18 13:01 Dose: Not Given Lisinopril (Prinivil) 5 mg PO DAILY [facility] Last Admin: 07/21/18 09:36 Dose: 5 mg Ondansetron HCl (Zofran Inj) 4 mg IV.PUSH Q6H PRN PRN Reason: NAUSEA OR VOMITING Last Admin: 07/19/18 00:03 Dose: 4 mg Pravastatin Sodium (Pravachol) 20 mg PO DAILY [facility] Last Admin: 07/21/18 09:36 Dose: 20 mg Sodium Chloride (Ns Flush) 2 ml IV.FLUSH BID [facility] Last Admin: 07/21/18 09:38 Dose: 2 ml Sodium Chloride (Ns Flush) 2 ml IV.FLUSH PRN PRN PRN Reason: FLUSH AFTER USING IV ACCESS Spironolactone (Aldactone) 50 mg PO DAILY [facility] Last Admin: 07/21/18 09:36 Dose: 50 mg Tramadol HCl (Ultram) 50 mg PO Q6H PRN PRN Reason: pain scale 5 to 10 Last Admin: 07/21/18 12:49 Dose: 50 mg Allergies Allergy/AdvReac Type Severity Reaction Status Date / Time codeine Allergy Mild Rash Verified 07/18/18 11:48 penicillin G Allergy Mild Rash Verified 07/18/18 11:48 Sulfa (Sulfonamide Allergy Mild Rash Verified 07/18/18 11:48 Antibiotics) Home Medications Medication Instructions Recorded Confirmed Type aspirin [Aspirin Low Dose] 81 mg PO DAILY 07/18/18 07/18/18 History cholecalciferol (vitamin D3) 2,000 unit PO DAILY 07/18/18 07/18/18 History [Vitamin D3] donepezil 10 mg PO DAILY 07/18/18 07/18/18 History lisinopril 5 mg PO DAILY 07/18/18 07/18/18 History metformin 1,000 mg PO BID 07/18/18 07/18/18 History multivitamin 1 tab PO DAILY 07/18/18 07/18/18 History pravastatin 20 mg PO DAILY 07/18/18 07/18/18 History spironolactone 50 mg PO DAILY 07/18/18 07/18/18 History warfarin 2 mg PO 5XW 07/18/18 07/18/18 History warfarin 2.5 mg PO 2XWEEK 07/18/18 07/18/18 History Exam Vital signs: Vital Signs 07/20/18 16:17 07/20/18 20:49 07/20/18 22:50 Temperature 97.7 F Pulse Rate 58 L 89 Respiratory Rate 16 Blood Pressure 133/96 H 175/75 H 131/93 H Pulse Oximetry 95 95 07/21/18 04:00 07/21/18 05:34 07/21/18 05:52 Temperature 98.9 F Pulse Rate 63 56 L Respiratory Rate 16 Blood Pressure 185/109 H 170/73 H 178/117 H Pulse Oximetry 98 07/21/18 08:00 07/21/18 08:30 Temperature 98.2 F Pulse Rate 56 L 54 L Respiratory Rate 18 Blood Pressure 179/68 H Pulse Oximetry 98 Intake & Output 07/20/18 07/21/18 07/21/18 18:59 06:59 18:59 Intake Total 475 / 475 1000 / 1000 Output Total 50 / 50 100 / 100 Balance 425 / 425 -100 / -100 1000 / 1000 Intake: IV 75 / 75 1000 / 1000 NS Inj 1,000 ML @ 70 mls/hr IV. 1000 / 1000 CONT .[id number] [facility] Rx#:[id number] NS Inj 250 ML @ 15 mls/hr IV. 75 / 75 SIG ONCE [facility] Rx#:[id number] Intake (Blood Product) Amt 400 / 400 Rbc As-3 Leukoreduced Unit 400 / 400 [id number] Output: Urine 50 / 50 100 / 100 Other: # Voids 1 Date of Last Bowel Movement 07/20/18 07/20/18 # Bowel Movements 1 - Constitutional no acute distress - Routine HEENT Exam Head: Present: hematoma (Right periorbital ecchymosis) Eye: Present: EOMI, PERRL ENT: Present: mucous membranes moist, oropharynx clear, external ear normal - Routine Neck Exam Present: supple, full ROM - Routine Respiratory Exam Present: CTA bilaterally - Routine Cardiovascular Exam Present: S1, S2, irregular rhythm - Routine Abdominal Exam Present: soft, normoactive bowel sounds - Routine Extremities Exam Present: tenderness (Tenderness overlying the right humerus area with the sling in place) - Routine Skin Exam Present: ecchymosis - Routine Neurological Exam Present: oriented X3, CN II-XII intact, plantar reflex, moving all extremities, vision grossly intact, normal speech Results - Laboratory Findings CBC and BMP: 07/20/18 18:30 07/20/18 18:30 Abnormal lab findings: Abnormal Labs 07/18/18 07/18/18 07/18/18 11:20 11:20 11:20 WBC 12.9 H RBC 3.91 L Hgb Hct Neut % (Auto) 73.8 H Lymph % (Auto) Neut # (Auto) 9.5 H Lymph # (Auto) Seg Neuts % (Manual) Band Neuts % (Manual) Lymphocytes % (Manual) Abs Neuts (Manual) PT 60.3 H INR 6.0 H* Chloride 109 H BUN 24 H Creatinine 1.09 H Estimated GFR 49 L POC Glucose Random Glucose 124 H Calcium AST Total Protein Albumin Urine Ketones Urine Urobilinogen Urine Bacteria Urine Mucus MTS Gel Crossmatch 07/18/18 07/18/18 07/19/18 19:16 21:33 07:44 WBC RBC Hgb Hct Neut % (Auto) Lymph % (Auto) Neut # (Auto) Lymph # (Auto) Seg Neuts % (Manual) Band Neuts % (Manual) Lymphocytes % (Manual) Abs Neuts (Manual) PT INR Chloride BUN Creatinine Estimated GFR POC Glucose 137 H 148 H 136 H Random Glucose Calcium AST Total Protein Albumin Urine Ketones Urine Urobilinogen Urine Bacteria Urine Mucus MTS Gel Crossmatch 07/19/18 07/19/18 07/19/18 10:20 10:20 10:20 WBC 13.1 H RBC 3.12 L Hgb 10.1 L D Hct 28.1 L Neut % (Auto) 82.1 H Lymph % (Auto) Neut # (Auto) 10.8 H Lymph # (Auto) Seg Neuts % (Manual) Band Neuts % (Manual) Lymphocytes % (Manual) Abs Neuts (Manual) PT 43.2 H D INR Chloride 111 H BUN 28 H Creatinine 1.19 H Estimated GFR 44 L POC Glucose Random Glucose 131 H Calcium AST 12 L Total Protein 6.2 L Albumin 3.1 L Urine Ketones Urine Urobilinogen Urine Bacteria Urine Mucus MTS Gel Crossmatch 07/19/18 07/19/18 07/19/18 12:24 12:25 17:36 WBC RBC Hgb Hct Neut % (Auto) Lymph % (Auto) Neut # (Auto) Lymph # (Auto) Seg Neuts % (Manual) Band Neuts % (Manual) Lymphocytes % (Manual) Abs Neuts (Manual) PT INR Chloride BUN Creatinine Estimated GFR POC Glucose 150 H 151 H 138 H Random Glucose Calcium AST Total Protein Albumin Urine Ketones Urine Urobilinogen Urine Bacteria Urine Mucus MTS Gel Crossmatch 07/19/18 07/19/18 07/19/18 21:13 22:10 23:35 WBC RBC Hgb 7.9 L D Hct 22.4 L Neut % (Auto) Lymph % (Auto) Neut # (Auto) Lymph # (Auto) Seg Neuts % (Manual) Band Neuts % (Manual) Lymphocytes % (Manual) Abs Neuts (Manual) PT INR Chloride BUN Creatinine Estimated GFR POC Glucose 171 H Random Glucose Calcium AST Total Protein Albumin Urine Ketones Trace H Urine Urobilinogen 2.0 H Urine Bacteria Rare H Urine Mucus Few H MTS Gel Crossmatch 07/20/18 07/20/18 07/20/18 01:27 08:25 12:47 WBC RBC Hgb Hct Neut % (Auto) Lymph % (Auto) Neut # (Auto) Lymph # (Auto) Seg Neuts % (Manual) Band Neuts % (Manual) Lymphocytes % (Manual) Abs Neuts (Manual) PT INR Chloride BUN Creatinine Estimated GFR POC Glucose 148 H 138 H Random Glucose Calcium AST Total Protein Albumin Urine Ketones Urine Urobilinogen Urine Bacteria Urine Mucus MTS Gel Crossmatch See Detail 07/20/18 07/20/18 07/20/18 18:00 18:01 18:30 WBC RBC Hgb Hct Neut % (Auto) Lymph % (Auto) Neut # (Auto) Lymph # (Auto) Seg Neuts % (Manual) Band Neuts % (Manual) Lymphocytes % (Manual) Abs Neuts (Manual) PT 24.1 H D INR Chloride BUN Creatinine Estimated GFR POC Glucose 162 H 181 H Random Glucose Calcium AST Total Protein Albumin Urine Ketones Urine Urobilinogen Urine Bacteria Urine Mucus MTS Gel Crossmatch 07/20/18 07/20/18 07/20/18 18:30 18:30 21:51 WBC 17.7 H RBC 3.70 L Hgb 11.3 L D Hct 33.1 L Neut % (Auto) 90.3 H Lymph % (Auto) 4.8 L Neut # (Auto) 16.0 H Lymph # (Auto) 0.8 L Seg Neuts % (Manual) 83 H Band Neuts % (Manual) 7 H Lymphocytes % (Manual) 5 L Abs Neuts (Manual) 16.1 H PT INR Chloride BUN 28 H Creatinine 1.06 H Estimated GFR 51 L POC Glucose 162 H Random Glucose 158 H Calcium 8.4 L AST Total Protein Albumin Urine Ketones Urine Urobilinogen Urine Bacteria Urine Mucus MTS Gel Crossmatch 07/21/18 07/21/18 06:40 07:49 WBC RBC Hgb Hct Neut % (Auto) Lymph % (Auto) Neut # (Auto) Lymph # (Auto) Seg Neuts % (Manual) Band Neuts % (Manual) Lymphocytes % (Manual) Abs Neuts (Manual) PT 26.0 H INR Chloride BUN Creatinine Estimated GFR POC Glucose 162 H Random Glucose Calcium AST Total Protein Albumin Urine Ketones Urine Urobilinogen Urine Bacteria Urine Mucus MTS Gel Crossmatch - Diagnostic Findings Additional findings: Head CT 07/18/18 11:08 CONCLUSION: 1. Severe periventricular white matter small vessel ischemic changes are noted bilaterally. 2. Prominent ventricles consistent with central cerebral atrophy versus hydrocephalus. Clinical correlation is recommended. 3. No acute infarct, acute hemorrhage, midline shift or extra-axial fluid collections. Humerus X-Ray 07/18/18 11:28 CONCLUSION: Mildly comminuted fracture of the right humeral head and neck. Shoulder CT 07/19/18 00:00 CONCLUSION: 1. Comminuted humeral neck fracture with mild angular deformity. No dislocation. Head CT 07/20/18 00:00 CONCLUSION: 1. New focal acute parafalx subdural hematoma posteriorly on the right side measuring 1.1 cm in thickness. No evidence of any significant mass effect or midline shift. Assessment and Plan - Assessment (1) Subdural hematoma, acute Code(s): S06.5X9A - Traumatic subdural hemorrhage with loss of consciousness of unspecified duration, initial encounter Status: Acute (2) Concussion with brief LOC Code(s): S06.0X9A - Concussion with loss of consciousness of unspecified duration, initial encounter Status: Acute (3) Fracture, humerus closed Code(s): S42.309A - Unspecified fracture of shaft of humerus, unspecified arm, initial encounter for closed fracture Status: Acute (4) Warfarin-induced coagulopathy Code(s): D68.32 - Hemorrhagic disorder due to extrinsic circulating anticoagulants; T45.515A - Adverse effect of anticoagulants, initial encounter Status: Acute (5) Atrial fibrillation Code(s): I48.91 - Unspecified atrial fibrillation Status: Chronic - Plan 73-year-old lady with a occipital interhemispheric subdural hemorrhage with slight enlargement since presentation 3 days ago without any associated neurologic symptoms. Her PT/INR was supratherapeutic on presentation and although improved is still elevated and being corrected with FFP and vitamin K. Recommended continued observation and holding off anticoagulation for the next 10-14 days. Increase activity status as tolerated and regulate hypertension. Discussed with patient and nursing staff. (3) Fracture, humerus closed Qualifiers: Encounter type: initial encounter Humerus Location: surgical neck Fracture morphology: unspecified fracture morphology Fracture alignment: displaced Laterality: right Qualified Code(s): S42.211A - Unspecified displaced fracture of surgical neck of right humerus, initial encounter for closed fracture (5) Atrial fibrillation Qualifiers: Atrial fibrillation type: chronic Qualified Code(s): I48.2 - Chronic atrial fibrillation
[2018-07-21] MEDS: Morphine Sulfate Inj 2 MG/ML Vial IV.PUSH PRN (16:50)
[2018-07-21] MEDS: niCARdipine Inj 25 MG in Sodium Chlor 0.9% Inj 240 ML IV.CONT PRN ×3 (17:02→22:35)
[2018-07-21 18:07] LABS: Activated Partial Thrombo Time 34.3 sec (24.3-30.1); INR 1.7 Ratio; Prothrombin Time 17.3 sec (9.8-11.6)
[2018-07-22] MEDS: niCARdipine Inj 25 MG in Sodium Chlor 0.9% Inj 240 ML IV.CONT PRN ×5 (00:20→08:28)
[2018-07-22] MEDS: Sod Chloride 0.9% Inj 1,000 ML IV.CONT SCH (06:56)
[2018-07-22 07:17] LABS: Baso # (Auto) 0.1 th/mm3 (0.0-0.2); Baso % (Auto) 0.6 % (0.0-2.0); Eos # (Auto) 0.6 th/mm3 (0.0-0.4); Eos % (Auto) 3.6 % (0.0-4.0); Hematocrit 26.4 % (35.0-46.0); Hemoglobin 9.4 gm/dL (11.6-15.3); Lymph # (Auto) 1.2 th/mm3 (1.0-4.8); Lymph % (Auto) 6.6 % (9.0-44.0); Mean Corpuscular HGB Conc 35.6 % (32.0-36.0); Mean Corpuscular Hemoglobin 31.3 pg (27.0-34.0); Mean Corpuscular Volume 87.9 fL (80.0-100.0); Mean Platelet Volume 9.2 fL (7.0-11.0); Mono # (Auto) 1.1 th/mm3 (0.0-0.9); Neut # (Auto) 14.8 th/mm3 (1.8-7.7); Neut % (Auto) 83.2 % (16.0-70.0); Platelet Count 253 th/mm3 (150-450); Red Cell Distribution Width 13.5 % (11.6-17.2); White Blood Count 17.9 th/mm3 (4.0-11.0)
[2018-07-22 07:40] LABS: Calcium 8.2 mg/dL (8.5-10.1); Carbon Dioxide 21.8 meq/L (21.0-32.0); Potassium 3.4 meq/L (3.5-5.1)
[2018-07-22] MEDS: Sodium Chloride 0.9% 2 ML Flush BID IV.FLUSH SCH ×2 (08:27→22:33)
[2018-07-22] MEDS: Lisinopril 5 MG Tablet PO SCH (08:27)
[2018-07-22] MEDS: hydrALAZINE 25 MG Tablet PO PRN (08:27)
[2018-07-22] MEDS: Spironolactone 50 MG Tablet PO SCH (08:27)
[2018-07-22] MEDS: Morphine Sulfate Inj 2 MG/ML Vial IV.PUSH PRN ×2 (08:42→18:03)
[2018-07-22] MEDS: Insulin NovoLOG Aspart Correctional Sugar Inj SQ SCH ×4 (08:42→22:33)
--- NOTE | 2018-07-22 09:07 | P.PNNS ---
Subjective Interval history: Pt awake and alert. Denies headache, nausea, vomiting, or weakness. <Anderson Borges - Last Filed: 07/22/18 08:59> Physical Exam Vital signs: Vital Signs 07/21/18 12:19 07/21/18 12:22 07/21/18 12:44 Temperature Pulse Rate 51 L 50 L Respiratory Rate Blood Pressure 200/83 H 183/79 H 182/78 H Pulse Oximetry 99 97 07/21/18 13:00 07/21/18 13:02 07/21/18 13:03 Temperature 98.0 F Pulse Rate 50 L 50 L 52 L Respiratory Rate 22 22 25 H Blood Pressure 172/72 H 172/72 H Pulse Oximetry 97 97 97 07/21/18 13:10 07/21/18 13:20 07/21/18 13:55 Temperature 97.9 F Pulse Rate 67 50 L 47 L Respiratory Rate 22 21 Blood Pressure 175/83 H 203/85 H 166/87 H Pulse Oximetry 99 97 97 07/21/18 14:00 07/21/18 14:10 07/21/18 14:17 Temperature 98.0 F Pulse Rate 49 L 47 L 50 L Respiratory Rate 22 21 22 Blood Pressure 163/72 H 163/72 H Pulse Oximetry 97 97 97 07/21/18 15:00 07/21/18 15:08 07/21/18 15:10 Temperature Pulse Rate 48 L 48 L 48 L Respiratory Rate 21 22 25 H Blood Pressure 192/81 H 192/79 H Pulse Oximetry 97 98 98 07/21/18 15:26 07/21/18 15:36 07/21/18 16:00 Temperature Pulse Rate 61 50 L 51 L Respiratory Rate 25 H 25 H 23 Blood Pressure 224/87 H 206/84 H Pulse Oximetry 98 98 99 07/21/18 16:10 07/21/18 16:54 07/21/18 17:00 Temperature Pulse Rate 45 L 50 L 45 L Respiratory Rate 21 22 23 Blood Pressure 187/103 H 209/88 H Pulse Oximetry 98 97 97 07/21/18 17:15 07/21/18 17:30 07/21/18 17:45 Temperature Pulse Rate 52 L 56 L 53 L Respiratory Rate 24 24 24 Blood Pressure 201/82 H 168/70 H 153/67 H Pulse Oximetry 98 95 93 L 07/21/18 18:00 07/21/18 18:15 07/21/18 20:00 Temperature 97.8 F Pulse Rate 60 55 L 68 Respiratory Rate 21 27 H 22 Blood Pressure 161/72 H 161/69 H 155/68 H Pulse Oximetry 95 94 L 96 07/22/18 00:00 07/22/18 04:00 Temperature 98.5 F 98.2 F Pulse Rate 57 L 53 L Respiratory Rate 17 23 Blood Pressure 134/63 124/57 L Pulse Oximetry 98 95 Intake & Output 07/21/18 07/22/18 07/22/18 18:59 06:59 18:59 Intake Total 1225 / 1225 2500 / 2500 250 / 250 Output Total 1100 / 1100 Balance 1225 / 1225 1400 / 1400 250 / 250 Weight 79.8 kg Intake: IV 1000 / 1000 2500 / 2500 250 / 250 NS Inj 1,000 ML @ 70 mls/hr IV. 1000 / 1000 1000 / 1000 CONT .[id number] [facility] Rx#:[id number] Cardene Inj 25 MG In NS Inj 240 1500 / 1500 250 / 250 ML @ 5 MG/HR 50 mls/hr IV.CONT TITRATE PRN Rx#:[id number] Oral 0 / 0 Intake (Blood Product) Amt 225 / 225 Plasma Thawed 5 Day Acda Unit 225 / 225 [id number] Output: Urine Amount (Catheter) 1100 / 1100 Straight 1100 / 1100 Other: # Voids 0 Date of Last Bowel Movement 07/20/18 # Bowel Movements 0 - Constitutional no acute distress, obese - Routine HEENT Exam Head: Absent: atraumatic (Right periorbital ecchymosis and small lacerations above right eye.) Eye: Present: PERRL (Pupils 3mm bialterally reactive bilaterally.), periorbital ecchymosis (Right.) ENT: Present: oropharynx clear - Routine Neck Exam Present: trachea midline - Routine Respiratory Exam Present: CTA bilaterally. Absent: patient mechanically ventilated, respiratory distress, rhonchi, wheezes - Routine Cardiovascular Exam Present: S1, S2, irregularly irregular. Absent: murmur - Routine Abdominal Exam Present: soft, normoactive bowel sounds. Absent: distended, firm - Routine Skin Exam Absent: cyanosis, erythema - Routine Neurological Exam Present: alert, facial asymmetry, normal speech. Absent: sensory deficit, moving all extremities (Moving all 4 except RUE in sling.) - Detailed Neurological Exam: Coma Scale Eye Opening: Spontaneous Verbal Response: Oriented Motor Response: Obey commands Artem Coma Scale Total: 15 - Routine Psychiatric Exam Present: normal affect, cooperative. Absent: anxious, agitated - Urinary Catheter Management Straight Cath placed during this visit: no <Anderson Borges - Last Filed: 07/22/18 08:59> Vital signs: Vital Signs 07/21/18 12:44 07/21/18 13:00 07/21/18 13:02 Temperature Pulse Rate 50 L 50 L 50 L Respiratory Rate 22 22 Blood Pressure 182/78 H 172/72 H Pulse Oximetry 97 97 97 07/21/18 13:03 07/21/18 13:10 07/21/18 13:20 Temperature 98.0 F 97.9 F Pulse Rate 52 L 67 50 L Respiratory Rate 25 H 22 Blood Pressure 172/72 H 175/83 H 203/85 H Pulse Oximetry 97 99 97 07/21/18 13:55 07/21/18 14:00 07/21/18 14:10 Temperature Pulse Rate 47 L 49 L 47 L Respiratory Rate 21 22 21 Blood Pressure 166/87 H 163/72 H Pulse Oximetry 97 97 97 07/21/18 14:17 07/21/18 15:00 07/21/18 15:08 Temperature 98.0 F Pulse Rate 50 L 48 L 48 L Respiratory Rate 22 21 22 Blood Pressure 163/72 H 192/81 H Pulse Oximetry 97 97 98 07/21/18 15:10 07/21/18 15:26 07/21/18 15:36 Temperature Pulse Rate 48 L 61 50 L Respiratory Rate 25 H 25 H 25 H Blood Pressure 192/79 H 224/87 H 206/84 H Pulse Oximetry 98 98 98 07/21/18 16:00 07/21/18 16:10 07/21/18 16:54 Temperature Pulse Rate 51 L 45 L 50 L Respiratory Rate 23 21 22 Blood Pressure 187/103 H 209/88 H Pulse Oximetry 99 98 97 07/21/18 17:00 07/21/18 17:15 07/21/18 17:30 Temperature Pulse Rate 45 L 52 L 56 L Respiratory Rate 23 24 24 Blood Pressure 201/82 H 168/70 H Pulse Oximetry 97 98 95 07/21/18 17:45 07/21/18 18:00 07/21/18 18:15 Temperature Pulse Rate 53 L 60 55 L Respiratory Rate 24 21 27 H Blood Pressure 153/67 H 161/72 H 161/69 H Pulse Oximetry 93 L 95 94 L 07/21/18 20:00 07/22/18 00:00 07/22/18 04:00 Temperature 97.8 F 98.5 F 98.2 F Pulse Rate 68 57 L 53 L Respiratory Rate 22 17 23 Blood Pressure 155/68 H 134/63 124/57 L Pulse Oximetry 96 98 95 07/22/18 08:00 07/22/18 08:44 07/22/18 09:00 Temperature 97.9 F Pulse Rate 57 L 56 L Respiratory Rate 25 H 23 Blood Pressure 158/66 H Pulse Oximetry 98 07/22/18 12:00 Temperature 98.0 F Pulse Rate 52 L Respiratory Rate 26 H Blood Pressure 131/60 Pulse Oximetry 98 Intake & Output 07/21/18 07/22/18 07/22/18 18:59 06:59 18:59 Intake Total 1225 / 1225 2500 / 2500 350 / 350 Output Total 1100 / 1100 Balance 1225 / 1225 1400 / 1400 350 / 350 Weight 79.8 kg Intake: IV 1000 / 1000 2500 / 2500 350 / 350 NS Inj 1,000 ML @ 70 mls/hr IV. 1000 / 1000 1000 / 1000 CONT .[id number] [facility] Rx#:[id number] Cardene Inj 25 MG In NS Inj 240 1500 / 1500 350 / 350 ML @ 5 MG/HR 50 mls/hr IV.CONT TITRATE PRN Rx#:[id number] Oral 0 / 0 Intake (Blood Product) Amt 225 / 225 Plasma Thawed 5 Day Acda Unit 225 / 225 [id number] Output: Urine Amount (Catheter) 1100 / 1100 Straight 1100 / 1100 Other: # Voids 0 Date of Last Bowel Movement 07/20/18 # Bowel Movements 0 - Urinary Catheter Management Straight Cath placed during this visit: no <Edilberto Hernandez - Last Filed: 07/22/18 12:38> Assessment and Plan - Assessment (1) Concussion without loss of consciousness Code(s): S06.0X0A - Concussion without loss of consciousness, initial encounter Status: Acute Qualifiers: Encounter type: initial encounter Qualified Code(s): S06.0X0A - Concussion without loss of consciousness, initial encounter (2) Fracture, humerus closed Code(s): S42.309A - Unspecified fracture of shaft of humerus, unspecified arm, initial encounter for closed fracture Status: Acute Qualifiers: Encounter type: initial encounter Humerus Location: surgical neck Fracture morphology: unspecified fracture morphology Fracture alignment: displaced Laterality: right Qualified Code(s): S42.211A - Unspecified displaced fracture of surgical neck of right humerus, initial encounter for closed fracture (3) Warfarin-induced coagulopathy Code(s): D68.32 - Hemorrhagic disorder due to extrinsic circulating anticoagulants; T45.515A - Adverse effect of anticoagulants, initial encounter Status: Acute (4) Forehead laceration Code(s): S01.81XA - Laceration without foreign body of other part of head, initial encounter Status: Acute Qualifiers: Encounter type: initial encounter Qualified Code(s): S01.81XA - Laceration without foreign body of other part of head, initial encounter (5) Skin tear of elbow without complication Code(s): S51.019A - Laceration without foreign body of unspecified elbow, initial encounter Status: Acute Qualifiers: Encounter type: initial encounter Laterality: left Qualified Code(s): S51.012A - Laceration without foreign body of left elbow, initial encounter (6) Subdural hematoma, acute Code(s): S06.5X9A - Traumatic subdural hemorrhage with loss of consciousness of unspecified duration, initial encounter Status: Acute (7) Concussion with brief LOC Code(s): S06.0X9A - Concussion with loss of consciousness of unspecified duration, initial encounter Status: Acute (8) Atrial fibrillation Code(s): I48.91 - Unspecified atrial fibrillation Status: Chronic Qualifiers: Atrial fibrillation type: chronic Qualified Code(s): I48.2 - Chronic atrial fibrillation - Plan 73-year-old lady with a occipital interhemispheric subdural hemorrhage with slight enlargement since presentation without any associated neurologic symptoms. Her PT/INR was supratherapeutic on presentation and although improved received additional FFP and Vitamin K. P: Continue with blood pressure control Continue with neuro check Continue with rehab efforts. Advance activity with assistance. <Anderson Borges - Last Filed: 07/22/18 08:59> - Assessment (1) Subdural hematoma, acute Code(s): S06.5X9A - Traumatic subdural hemorrhage with loss of consciousness of unspecified duration, initial encounter Status: Acute (2) Concussion with brief LOC Code(s): S06.0X9A - Concussion with loss of consciousness of unspecified duration, initial encounter Status: Acute (3) Fracture, humerus closed Code(s): S42.309A - Unspecified fracture of shaft of humerus, unspecified arm, initial encounter for closed fracture Status: Acute Qualifiers: Qualified Code(s): S42.211A - Unspecified displaced fracture of surgical neck of right humerus, initial encounter for closed fracture (4) Warfarin-induced coagulopathy Code(s): D68.32 - Hemorrhagic disorder due to extrinsic circulating anticoagulants; T45.515A - Adverse effect of anticoagulants, initial encounter Status: Acute (5) Atrial fibrillation Code(s): I48.91 - Unspecified atrial fibrillation Status: Chronic Qualifiers: Qualified Code(s): I48.2 - Chronic atrial fibrillation - Attending Attestation The exam, history, and the medical decision-making described in the above note were completed with the assistance of the mid-level provider. I reviewed and agree with the findings presented. I attest that I had a [id number] encounter with the patient on the same day, and personally performed and documented my assessment and findings in the medical record. <Edilberto Hernandez - Last Filed: 07/22/18 12:38>
--- NOTE | 2018-07-22 12:49 | P.PNIM ---
Subjective Interval history: Patient reports no significant headaches. He is able to move both arm and leg and denies any weakness. Has worked with physical therapy. Will prefer to go home rather than going to rehab when well. Physical Exam Vital signs: Vital Signs 07/21/18 12:44 07/21/18 13:00 07/21/18 13:02 Temperature Pulse Rate 50 L 50 L 50 L Respiratory Rate 22 22 Blood Pressure 182/78 H 172/72 H Pulse Oximetry 97 97 97 07/21/18 13:03 07/21/18 13:10 07/21/18 13:20 Temperature 98.0 F 97.9 F Pulse Rate 52 L 67 50 L Respiratory Rate 25 H 22 Blood Pressure 172/72 H 175/83 H 203/85 H Pulse Oximetry 97 99 97 07/21/18 13:55 07/21/18 14:00 07/21/18 14:10 Temperature Pulse Rate 47 L 49 L 47 L Respiratory Rate 21 22 21 Blood Pressure 166/87 H 163/72 H Pulse Oximetry 97 97 97 07/21/18 14:17 07/21/18 15:00 07/21/18 15:08 Temperature 98.0 F Pulse Rate 50 L 48 L 48 L Respiratory Rate 22 21 22 Blood Pressure 163/72 H 192/81 H Pulse Oximetry 97 97 98 07/21/18 15:10 07/21/18 15:26 07/21/18 15:36 Temperature Pulse Rate 48 L 61 50 L Respiratory Rate 25 H 25 H 25 H Blood Pressure 192/79 H 224/87 H 206/84 H Pulse Oximetry 98 98 98 07/21/18 16:00 07/21/18 16:10 07/21/18 16:54 Temperature Pulse Rate 51 L 45 L 50 L Respiratory Rate 23 21 22 Blood Pressure 187/103 H 209/88 H Pulse Oximetry 99 98 97 07/21/18 17:00 07/21/18 17:15 07/21/18 17:30 Temperature Pulse Rate 45 L 52 L 56 L Respiratory Rate 23 24 24 Blood Pressure 201/82 H 168/70 H Pulse Oximetry 97 98 95 07/21/18 17:45 07/21/18 18:00 07/21/18 18:15 Temperature Pulse Rate 53 L 60 55 L Respiratory Rate 24 21 27 H Blood Pressure 153/67 H 161/72 H 161/69 H Pulse Oximetry 93 L 95 94 L 07/21/18 20:00 07/22/18 00:00 07/22/18 04:00 Temperature 97.8 F 98.5 F 98.2 F Pulse Rate 68 57 L 53 L Respiratory Rate 22 17 23 Blood Pressure 155/68 H 134/63 124/57 L Pulse Oximetry 96 98 95 07/22/18 08:00 07/22/18 08:44 07/22/18 09:00 Temperature 97.9 F Pulse Rate 57 L 56 L Respiratory Rate 25 H 23 Blood Pressure 158/66 H Pulse Oximetry 98 07/22/18 12:00 Temperature 98.0 F Pulse Rate 52 L Respiratory Rate 26 H Blood Pressure 131/60 Pulse Oximetry 98 Intake & Output 07/21/18 07/22/18 07/22/18 18:59 06:59 18:59 Intake Total 1225 / 1225 2500 / 2500 350 / 350 Output Total 1100 / 1100 Balance 1225 / 1225 1400 / 1400 350 / 350 Weight 79.8 kg Intake: IV 1000 / 1000 2500 / 2500 350 / 350 NS Inj 1,000 ML @ 70 mls/hr IV. 1000 / 1000 1000 / 1000 CONT .[id number] [facility] Rx#:[id number] Cardene Inj 25 MG In NS Inj 240 1500 / 1500 350 / 350 ML @ 5 MG/HR 50 mls/hr IV.CONT TITRATE PRN Rx#:[id number] Oral 0 / 0 Intake (Blood Product) Amt 225 / 225 Plasma Thawed 5 Day Acda Unit 225 / 225 [id number] Output: Urine Amount (Catheter) 1100 / 1100 Straight 1100 / 1100 Other: # Voids 0 Date of Last Bowel Movement 07/20/18 # Bowel Movements 0 Narrative: GENERAL: Pleasant 73 yo F, well-nourished, well-developed female , appears in NAD. CARDIOVASCULAR: irregular rate and rhythm. No murmur appreciated. RESPIRATORY: No accessory muscle use. Clear to auscultation. Breath sounds equal bilaterally. GASTROINTESTINAL: Abdomen soft, non-tender, nondistended. Normoactive bowel sounds x4. MUSCULOSKELETAL: No obvious deformities. Extremities without clubbing, cyanosis , or edema. NEUROLOGICAL: Awake and alert, oriented to self and place and time. Follows commands. Strength normal in upper and lower extremities. No obvious cranial nerve deficits. Normal speech. PSYCHIATRIC: Appropriate mood and affect; - Urinary Catheter Management Straight Cath placed during this visit: no Results - Labs CBC & Chem 7: 07/22/18 05:55 07/22/18 05:55 Laboratory Results - last 24 hr 07/20/18 07/21/18 07/21/18 01:27 08:32 17:19 WBC RBC Hgb Hct MCV MCH MCHC RDW Plt Count MPV Neut % (Auto) Lymph % (Auto) [place] % (Auto) Eos % (Auto) Baso % (Auto) Neut # (Auto) Lymph # (Auto) [place] # (Auto) Eos # (Auto) Baso # (Auto) WBC Differential Differential Comment PT Cancelled INR Cancelled APTT Sodium Potassium Chloride Carbon Dioxide Anion Gap BUN Creatinine Estimated GFR POC Glucose Random Glucose Calcium MTS Gel Crossmatch See Detail Blood Bank Comment 07/21/18 07/21/18 07/21/18 17:19 18:17 20:52 WBC RBC Hgb Hct MCV MCH MCHC RDW Plt Count MPV Neut % (Auto) Lymph % (Auto) [place] % (Auto) Eos % (Auto) Baso % (Auto) Neut # (Auto) Lymph # (Auto) [place] # (Auto) Eos # (Auto) Baso # (Auto) WBC Differential Differential Comment PT 17.3 H INR 1.7 APTT 34.3 H Sodium Potassium Chloride Carbon Dioxide Anion Gap BUN Creatinine Estimated GFR POC Glucose 119 H 229 H Random Glucose Calcium MTS Gel Crossmatch Blood Bank Comment 07/22/18 07/22/18 07/22/18 05:55 05:55 05:55 WBC 17.9 H RBC 3.00 L Hgb 9.4 L Hct 26.4 L MCV 87.9 MCH 31.3 MCHC 35.6 RDW 13.5 Plt Count 253 MPV 9.2 Neut % (Auto) 83.2 H Lymph % (Auto) 6.6 L [place] % (Auto) 6.0 Eos % (Auto) 3.6 Baso % (Auto) 0.6 Neut # (Auto) 14.8 H Lymph # (Auto) 1.2 [place] # (Auto) 1.1 H Eos # (Auto) 0.6 H Baso # (Auto) 0.1 WBC Differential . Differential Comment Auto diff final PT INR APTT 29.4 Sodium 144 Potassium 3.4 L Chloride 111 H Carbon Dioxide 21.8 Anion Gap 11 BUN 25 H Creatinine 0.88 Estimated GFR 63 L POC Glucose Random Glucose 162 H Calcium 8.2 L MTS Gel Crossmatch Blood Bank Comment 07/22/18 07/22/18 08:36 12:10 WBC RBC Hgb Hct MCV MCH MCHC RDW Plt Count MPV Neut % (Auto) Lymph % (Auto) [place] % (Auto) Eos % (Auto) Baso % (Auto) Neut # (Auto) Lymph # (Auto) [place] # (Auto) Eos # (Auto) Baso # (Auto) WBC Differential Differential Comment PT INR APTT Sodium Potassium Chloride Carbon Dioxide Anion Gap BUN Creatinine Estimated GFR POC Glucose 181 H 170 H Random Glucose Calcium MTS Gel Crossmatch Blood Bank Comment Assessment and Plan - Plan 73-year-old female for past medical history of dementia, paroxysmal A. fib on chronic Coumadin was brought to the ED for evaluation of fall, as a result of which patient complains of right arm pain. Coagulopathy/supratherapeutic INR: INR 6.0 upon arrival -S/p Vit K 2.5mg PO x 1 on admission. -continue to Hold Coumadin -Repeat INR 4.3, ( 07/20) given 2 units of FFP per recommendation of plastic surgery due to significant oozing from facial lacerations. Patient with subdural hematoma on repeat CT head 07/20/18. Repeat INR 07/21 was still elevated and risk of bleeding is still high, patient was transferred to ICU for close observation, status post 1U FFP, vit K 5 mg once, continue to monitor INR. Appreciate neurosurgery's recommendation of continued physical therapy and monitor of INR -Monitor daily INR/PT -Recommend patient/family have discussion with cardiology regarding continuing anticoagulation as patient is high risk for fall/injury Parafalx subdural hematoma posteriorly on the right side of 1.[address] head reviewed and findings discussed with the patient : New focal acute parafalx subdural hematoma posteriorly on the right side measuring 1.1 cm in thickness. No evidence of any significant mass effect or midline shift. -Repeat INR currently pending today Continue physical therapy and blood pressure control per neurosurgery. No surgical intervention needed at this time. Right Proximal Humerus Fracture: acute, s/p fall -RUE X-ray reviewed, shows mildly comminuted fracture of the right humeral head and neck -R Shoulder CT shows Comminuted humeral neck fracture with mild angular deformity. No dislocation. -Continue sling -Orthopedics consulted, nonsurgical, outpatient f/up with ortho in 2 weeks -NWTy ESCALONAE -PT/OT consulted, recommends rehab, case management to assist with placement Acute Blood Loss Anemia: Hgb dropped to 7.9. -given 2 u pRBC transfusion -repeat hemoglobin 9.4 and stable. Paroxysmal A. fib: chronic -EKG reviewed, shows afib with SVR -Currently with supratherapeutic INR and active bleeding, holding Coumadin -rate controlled EDNA: suspect prerenal secondary to dehydration. Cr 1.19, previously 0.8 in Jun 2017 -Give gentle IV fluid hydration -avoid all nephrotoxins -BUN/creatinine improved. Hypokalemiareplete Right Forehead/Temporal Laceration: secondary to fall -temporal laceration with previous significant bleeding which now has resolved. Other chronic medical conditions, stable -Resume outpatient medications DVT prophylaxis: Chemical antiplatelet is contraindicated secondary to elevated INR Case management consulted Discharge Planning: Patient prefers home health care.
--- NOTE | 2018-07-22 12:52 | P.DCO ---
- Diagnosis (1) Subdural hematoma, acute Status: Acute (2) Fracture, humerus closed Status: Acute - Physical Therapy Order: Evaluate and treat - Occupational Therapy Order: Evaluate and treat - Home Health Nursing Order: Nursing assessment with vital signs - Case Management Consult Yes - Certification I have seen patient Christine Barone on 07/22/18. My clinical findings support the need for the requested home health care services because: High risk of falls I certify that my clinical findings support that this patient is homebound because: Unsteady gait/balance (2) Fracture, humerus closed Qualifiers: Encounter type: initial encounter Humerus Location: surgical neck Fracture morphology: unspecified fracture morphology Fracture alignment: displaced Laterality: right Qualified Code(s): S42.211A - Unspecified displaced fracture of surgical neck of right humerus, initial encounter for closed fracture
[2018-07-22 17:38] LABS: INR 1.2 Ratio; Prothrombin Time 12.4 sec (9.8-11.6)
[2018-07-23] MEDS: Morphine Sulfate Inj 2 MG/ML Vial IV.PUSH PRN (03:24)
[2018-07-23 05:17] LABS: Baso # (Auto) 0.2 th/mm3 (0.0-0.2); Eos # (Auto) 0.7 th/mm3 (0.0-0.4); Eos % (Auto) 4.5 % (0.0-4.0); Hematocrit 26.3 % (35.0-46.0); Hemoglobin 9.1 gm/dL (11.6-15.3); Lymph # (Auto) 1.3 th/mm3 (1.0-4.8); Lymph % (Auto) 8.2 % (9.0-44.0); Mean Corpuscular HGB Conc 34.4 % (32.0-36.0); Mean Corpuscular Hemoglobin 31.2 pg (27.0-34.0); Mean Corpuscular Volume 90.5 fL (80.0-100.0); Mean Platelet Volume 9.2 fL (7.0-11.0); Mono # (Auto) 1.1 th/mm3 (0.0-0.9); Mono % (Auto) 6.5 % (0.0-8.0); Neut # (Auto) 12.8 th/mm3 (1.8-7.7); Neut % (Auto) 79.8 % (16.0-70.0); Platelet Count 238 th/mm3 (150-450); Red Blood Count 2.91 mil/mm3 (4.00-5.30); Red Cell Distribution Width 13.9 % (11.6-17.2); White Blood Count 16.1 th/mm3 (4.0-11.0)
[2018-07-23 05:24] LABS: Activated Partial Thrombo Time 27.5 sec (24.3-30.1); INR 1.1 Ratio; Prothrombin Time 11.5 sec (9.8-11.6)
[2018-07-23 05:37] LABS: Carbon Dioxide 20.6 meq/L (21.0-32.0); Potassium 3.3 meq/L (3.5-5.1)
[2018-07-23] MEDS: Lisinopril 5 MG Tablet PO SCH (08:32)
[2018-07-23] MEDS: Spironolactone 50 MG Tablet PO SCH (08:32)
[2018-07-23] MEDS: Insulin NovoLOG Aspart Correctional Sugar Inj SQ SCH ×4 (08:33→21:14)
[2018-07-23] MEDS: Sodium Chloride 0.9% 2 ML Flush BID IV.FLUSH SCH ×2 (08:33→21:12)
[2018-07-23] MEDS: Sod Chloride 0.9% Inj 1,000 ML IV.CONT SCH ×2 (08:48→10:28)
--- NOTE | 2018-07-23 09:55 | P.PNNS ---
Subjective Interval history: Pt awake and alert. Denies headaches. Mild nausea. No weakness on one side. <Anderson Borges - Last Filed: 07/23/18 09:50> Physical Exam Vital signs: Vital Signs 07/22/18 12:00 07/22/18 16:00 07/22/18 20:00 Temperature 98.0 F 98.4 F 98.7 F Pulse Rate 52 L 56 L 60 Respiratory Rate 26 H 29 H 22 Blood Pressure 131/60 144/65 H 154/82 H Pulse Oximetry 98 98 95 07/23/18 00:00 07/23/18 04:00 Temperature 98.5 F 98.6 F Pulse Rate 54 L 66 Respiratory Rate 23 19 Blood Pressure 162/71 H 171/72 H Pulse Oximetry 98 94 L Intake & Output 07/22/18 07/23/18 07/23/18 18:59 06:59 18:59 Intake Total 600 / 600 1000 / 1000 Output Total 250 / 250 Balance 350 / 350 1000 / 1000 Weight 82.7 kg Intake: IV 350 / 350 1000 / 1000 NS Inj 1,000 ML @ 70 mls/hr IV. 1000 / 1000 CONT .[id number] [facility] Rx#:[id number] Cardene Inj 25 MG In NS Inj 240 350 / 350 ML @ 5 MG/HR 50 mls/hr IV.CONT TITRATE PRN Rx#:[id number] Oral 250 / 250 Output: Urine Amount (Catheter) 250 / 250 Straight 250 / 250 Other: Date of Last Bowel Movement 07/20/18 - Constitutional no acute distress, obese - Routine HEENT Exam Head: Absent: atraumatic (Right periorbital ecchymosis.) Eye: Present: PERRL (Pupils equal 3mm bilaterally reactive bilaterally.). Absent: conjunctival icterus - Routine Respiratory Exam Present: CTA bilaterally. Absent: respiratory distress, rhonchi, wheezes - Routine Cardiovascular Exam Present: RRR, S1, S2. Absent: murmur - Routine Abdominal Exam Present: soft, normoactive bowel sounds. Absent: distended, firm - Routine Skin Exam Present: ecchymosis. Absent: cyanosis, erythema - Routine Neurological Exam Present: alert, oriented X3, moving all extremities (Except right upper extremity in sling.), normal speech. Absent: sensory deficit, motor deficit, facial asymmetry - Detailed Neurological Exam: Coma Scale Eye Opening: Spontaneous Verbal Response: Oriented Motor Response: Obey commands Artem Coma Scale Total: 15 - Routine Psychiatric Exam Present: normal affect, cooperative. Absent: anxious, agitated - Urinary Catheter Management Straight Cath placed during this visit: no <Anderson Borges - Last Filed: 07/23/18 09:50> Vital signs: Vital Signs 07/22/18 16:00 07/22/18 20:00 07/23/18 00:00 Temperature 98.4 F 98.7 F 98.5 F Pulse Rate 56 L 60 54 L Respiratory Rate 29 H 22 23 Blood Pressure 144/65 H 154/82 H 162/71 H Pulse Oximetry 98 95 98 07/23/18 04:00 07/23/18 07:00 07/23/18 08:00 Temperature 98.6 F 98.1 F Pulse Rate 66 68 61 Respiratory Rate 19 26 H 29 H Blood Pressure 171/72 H 169/74 H Pulse Oximetry 94 L 93 L 91 L 07/23/18 09:00 Temperature Pulse Rate 54 L Respiratory Rate 25 H Blood Pressure 164/67 H Pulse Oximetry 93 L Intake & Output 07/22/18 07/23/18 07/23/18 18:59 06:59 18:59 Intake Total 600 / 600 1000 / 1000 Output Total 250 / 250 Balance 350 / 350 1000 / 1000 Weight 82.7 kg Intake: IV 350 / 350 1000 / 1000 NS Inj 1,000 ML @ 70 mls/hr IV. 1000 / 1000 CONT .[id number] [facility] Rx#:[id number] Cardene Inj 25 MG In NS Inj 240 350 / 350 ML @ 5 MG/HR 50 mls/hr IV.CONT TITRATE PRN Rx#:[id number] Oral 250 / 250 Output: Urine Amount (Catheter) 250 / 250 Straight 250 / 250 Other: Date of Last Bowel Movement 07/20/18 - Urinary Catheter Management Straight Cath placed during this visit: no <Edilberto Hernandez - Last Filed: 07/23/18 12:00> Assessment and Plan - Assessment (1) Concussion without loss of consciousness Code(s): S06.0X0A - Concussion without loss of consciousness, initial encounter Status: Acute Qualifiers: Encounter type: initial encounter Qualified Code(s): S06.0X0A - Concussion without loss of consciousness, initial encounter (2) Fracture, humerus closed Code(s): S42.309A - Unspecified fracture of shaft of humerus, unspecified arm, initial encounter for closed fracture Status: Acute Qualifiers: Encounter type: initial encounter Humerus Location: surgical neck Fracture morphology: unspecified fracture morphology Fracture alignment: displaced Laterality: right Qualified Code(s): S42.211A - Unspecified displaced fracture of surgical neck of right humerus, initial encounter for closed fracture (3) Warfarin-induced coagulopathy Code(s): D68.32 - Hemorrhagic disorder due to extrinsic circulating anticoagulants; T45.515A - Adverse effect of anticoagulants, initial encounter Status: Acute (4) Forehead laceration Code(s): S01.81XA - Laceration without foreign body of other part of head, initial encounter Status: Acute Qualifiers: Encounter type: initial encounter Qualified Code(s): S01.81XA - Laceration without foreign body of other part of head, initial encounter (5) Skin tear of elbow without complication Code(s): S51.019A - Laceration without foreign body of unspecified elbow, initial encounter Status: Acute Qualifiers: Encounter type: initial encounter Laterality: left Qualified Code(s): S51.012A - Laceration without foreign body of left elbow, initial encounter (6) Subdural hematoma, acute Code(s): S06.5X9A - Traumatic subdural hemorrhage with loss of consciousness of unspecified duration, initial encounter Status: Acute (7) Concussion with brief LOC Code(s): S06.0X9A - Concussion with loss of consciousness of unspecified duration, initial encounter Status: Acute (8) Atrial fibrillation Code(s): I48.91 - Unspecified atrial fibrillation Status: Chronic Qualifiers: Atrial fibrillation type: chronic Qualified Code(s): I48.2 - Chronic atrial fibrillation - Plan 73-year-old lady with a occipital interhemispheric subdural hemorrhage with slight enlargement since presentation without any associated neurologic symptoms. Her PT/INR was supratherapeutic on presentation and although improved received additional FFP and Vitamin K. P: Continue with blood pressure control Continue with neuro check Continue with rehab efforts. Advance activity with assistance. <Anderson Borges - Last Filed: 07/23/18 09:50> - Assessment (1) Subdural hematoma, acute Code(s): S06.5X9A - Traumatic subdural hemorrhage with loss of consciousness of unspecified duration, initial encounter Status: Acute (2) Concussion with brief LOC Code(s): S06.0X9A - Concussion with loss of consciousness of unspecified duration, initial encounter Status: Acute (3) Fracture, humerus closed Code(s): S42.309A - Unspecified fracture of shaft of humerus, unspecified arm, initial encounter for closed fracture Status: Acute Qualifiers: Encounter type: initial encounter Humerus Location: surgical neck Fracture morphology: unspecified fracture morphology Fracture alignment: displaced Laterality: right Qualified Code(s): S42.211A - Unspecified displaced fracture of surgical neck of right humerus, initial encounter for closed fracture (4) Warfarin-induced coagulopathy Code(s): D68.32 - Hemorrhagic disorder due to extrinsic circulating anticoagulants; T45.515A - Adverse effect of anticoagulants, initial encounter Status: Acute (5) Atrial fibrillation Code(s): I48.91 - Unspecified atrial fibrillation Status: Chronic Qualifiers: Atrial fibrillation type: chronic Qualified Code(s): I48.2 - Chronic atrial fibrillation - Attending Attestation The exam, history, and the medical decision-making described in the above note were completed with the assistance of the mid-level provider. I reviewed and agree with the findings presented. I attest that I had a [id number] encounter with the patient on the same day, and personally performed and documented my assessment and findings in the medical record. <Edilberto Hernandez - Last Filed: 07/23/18 12:00>
[2018-07-23] MEDS: hydrALAZINE 25 MG Tablet PO PRN ×2 (12:43→17:36)
--- NOTE | 2018-07-23 14:25 | P.PNIM ---
Subjective Interval history: Patient states that her pain is controlled. She is working with physical therapy. She is still wants to go home with home health care versus going to a rehab facility. Physical Exam Vital signs: Vital Signs 07/22/18 16:00 07/22/18 20:00 07/23/18 00:00 Temperature 98.4 F 98.7 F 98.5 F Pulse Rate 56 L 60 54 L Respiratory Rate 29 H 22 23 Blood Pressure 144/65 H 154/82 H 162/71 H Pulse Oximetry 98 95 98 07/23/18 04:00 07/23/18 07:00 07/23/18 08:00 Temperature 98.6 F 98.1 F Pulse Rate 66 68 61 Respiratory Rate 19 26 H 29 H Blood Pressure 171/72 H 169/74 H Pulse Oximetry 94 L 93 L 91 L 07/23/18 09:00 07/23/18 12:00 Temperature 98.0 F Pulse Rate 54 L 61 Respiratory Rate 25 H 22 Blood Pressure 164/67 H 177/78 H Pulse Oximetry 93 L 94 L Intake & Output 07/22/18 07/23/18 07/23/18 18:59 06:59 18:59 Intake Total 600 / 600 1000 / 1000 Output Total 250 / 250 Balance 350 / 350 1000 / 1000 Weight 82.7 kg Intake: IV 350 / 350 1000 / 1000 NS Inj 1,000 ML @ 70 mls/hr IV. 1000 / 1000 CONT .[id number] [facility] Rx#:[id number] Cardene Inj 25 MG In NS Inj 240 350 / 350 ML @ 5 MG/HR 50 mls/hr IV.CONT TITRATE PRN Rx#:[id number] Oral 250 / 250 Output: Urine Amount (Catheter) 250 / 250 Straight 250 / 250 Other: Date of Last Bowel Movement 07/20/18 Narrative: GENERAL: Pleasant 73 yo F, well-nourished, well-developed female , appears in NAD. SKIN: Ecchymosis around the right eye, lacerations above eyebrow healing with no active bleeding. CARDIOVASCULAR: irregular rate and rhythm. No murmur appreciated. RESPIRATORY: No accessory muscle use. Clear to auscultation. Breath sounds equal bilaterally. GASTROINTESTINAL: Abdomen soft, non-tender, nondistended. Normoactive bowel sounds x4. MUSCULOSKELETAL: No obvious deformities. Extremities without clubbing, cyanosis , or edema. Right upper arm in sling and swath NEUROLOGICAL: Awake and alert, oriented to self and place and time. Follows commands. Strength normal in lower extremities. No obvious cranial nerve deficits. Normal speech. Able to move right upper fingers and hands without difficulty neurovascularly intact PSYCHIATRIC: Appropriate mood and affect; - Urinary Catheter Management Straight Cath placed during this visit: no Results - Labs CBC & Chem 7: 07/23/18 04:24 07/23/18 04:24 Laboratory Results - last 24 hr 07/22/18 07/22/18 07/22/18 16:16 17:37 22:10 WBC RBC Hgb Hct MCV MCH MCHC RDW Plt Count MPV Neut % (Auto) Lymph % (Auto) [place] % (Auto) Eos % (Auto) Baso % (Auto) Neut # (Auto) Lymph # (Auto) [place] # (Auto) Eos # (Auto) Baso # (Auto) WBC Differential Differential Comment PT 12.4 H INR 1.2 APTT Sodium Potassium Chloride Carbon Dioxide Anion Gap BUN Creatinine Estimated GFR POC Glucose 247 H 215 H Random Glucose Calcium 07/23/18 07/23/18 07/23/18 04:24 04:24 04:24 WBC 16.1 H RBC 2.91 L Hgb 9.1 L Hct 26.3 L MCV 90.5 MCH 31.2 MCHC 34.4 RDW 13.9 Plt Count 238 MPV 9.2 Neut % (Auto) 79.8 H Lymph % (Auto) 8.2 L [place] % (Auto) 6.5 Eos % (Auto) 4.5 H Baso % (Auto) 1.0 Neut # (Auto) 12.8 H Lymph # (Auto) 1.3 [place] # (Auto) 1.1 H Eos # (Auto) 0.7 H Baso # (Auto) 0.2 WBC Differential . Differential Comment Auto diff final PT 11.5 INR 1.1 APTT 27.5 Sodium 143 Potassium 3.3 L Chloride 112 H Carbon Dioxide 20.6 L Anion Gap 10 BUN 23 H Creatinine 0.82 Estimated GFR 68 L POC Glucose Random Glucose 114 H Calcium 8.0 L 07/23/18 07/23/18 08:10 11:52 WBC RBC Hgb Hct MCV MCH MCHC RDW Plt Count MPV Neut % (Auto) Lymph % (Auto) [place] % (Auto) Eos % (Auto) Baso % (Auto) Neut # (Auto) Lymph # (Auto) [place] # (Auto) Eos # (Auto) Baso # (Auto) WBC Differential Differential Comment PT INR APTT Sodium Potassium Chloride Carbon Dioxide Anion Gap BUN Creatinine Estimated GFR POC Glucose 145 H 163 H Random Glucose Calcium Assessment and Plan - Assessment (1) Subdural hematoma, acute Code(s): S06.5X9A - Traumatic subdural hemorrhage with loss of consciousness of unspecified duration, initial encounter Status: Acute (2) Fracture, humerus closed Code(s): S42.309A - Unspecified fracture of shaft of humerus, unspecified arm, initial encounter for closed fracture Status: Acute - Plan 73-year-old female for past medical history of dementia, paroxysmal A. fib on chronic Coumadin was brought to the ED for evaluation of fall, as a result of which patient complains of right arm pain. Coagulopathy/supratherapeutic INR: INR 6.0 upon arrival -S/p Vit K 2.5mg PO x 1 on admission. -continue to Hold Coumadin -Repeat INR 4.3 on 07/20 given 2 units of FFP per recommendation of plastic surgery due to significant oozing from facial lacerations. Patient with subdural hematoma on repeat CT head 07/20/18. Repeat INR on 07/21 was still elevated and risk of bleeding is still high, therefore patient was transferred to ICU for close observation, status post 1U FFP, vit K 5 mg once, continue to monitor INR. Appreciate neurosurgery's recommendation of continued physical therapy and monitor of INR -Today's INR is 1.1 and trended down -Recommend patient/family have discussion with cardiology regarding continuing anticoagulation as patient is high risk for fall/injury Parafalx subdural hematoma posteriorly on the right side of 1.[address] head reviewed and findings discussed with the patient : New focal acute parafalx subdural hematoma posteriorly on the right side measuring 1.1 cm in thickness. No evidence of any significant mass effect or midline shift. Continue physical therapy and blood pressure control per neurosurgery. No surgical intervention needed at this time. Right Proximal Humerus Fracture: acute, s/p fall -RUE X-ray reviewed, shows mildly comminuted fracture of the right humeral head and neck -R Shoulder CT shows Comminuted humeral neck fracture with mild angular deformity. No dislocation. -Continue sling -Orthopedics consulted, nonsurgical, outpatient f/up with ortho in 2 weeks -NWB RUE -PT/OT consulted, recommends rehab, case management to assist with placement Acute Blood Loss Anemia: Hgb dropped to 7.9. -given 2 u pRBC transfusion -repeat hemoglobin 9.1 and stable. Paroxysmal A. fib: chronic -EKG reviewed, shows afib with SVR -rate controlled Warfarin anticoagulation has been stopped. EDNA: suspect prerenal secondary to dehydration. Cr 1.19, previously 0.8 in Jun 2017 -Give gentle IV fluid hydration -avoid all nephrotoxins -BUN/creatinine improved. Hypokalemiareplete Right Forehead/Temporal Laceration: secondary to fall -temporal laceration with previous significant bleeding which now has resolved. Other chronic medical conditions, stable -Resume outpatient medications DVT prophylaxis: Anticoagulation contraindicated secondary to subdural hematoma Case management consulted Transfer out of the intensive care unit Discharge Planning: Patient prefers home health care. I did discuss with the patient today that if she does not progress with physical therapy, she may need to go to a care home facility. She is high risk for falls. (2) Fracture, humerus closed Qualifiers: Encounter type: initial encounter Humerus Location: surgical neck Fracture morphology: unspecified fracture morphology Fracture alignment: displaced Laterality: right Qualified Code(s): S42.211A - Unspecified displaced fracture of surgical neck of right humerus, initial encounter for closed fracture
[2018-07-24] MEDS: hydrALAZINE 25 MG Tablet PO PRN ×2 (01:00→21:20)
[2018-07-24] MEDS: Morphine Sulfate Inj 2 MG/ML Vial IV.PUSH PRN ×2 (01:04→13:09)
[2018-07-24] MEDS: Sod Chloride 0.9% Inj 1,000 ML IV.CONT SCH (06:14)
[2018-07-24 06:45] LABS: Baso # (Auto) 0.1 th/mm3 (0.0-0.2); Baso % (Auto) 0.9 % (0.0-2.0); Eos # (Auto) 0.5 th/mm3 (0.0-0.4); Eos % (Auto) 3.7 % (0.0-4.0); Hematocrit 26.1 % (35.0-46.0); Hemoglobin 8.9 gm/dL (11.6-15.3); Lymph # (Auto) 1.6 th/mm3 (1.0-4.8); Lymph % (Auto) 10.7 % (9.0-44.0); Mean Corpuscular HGB Conc 34.1 % (32.0-36.0); Mean Corpuscular Hemoglobin 31.1 pg (27.0-34.0); Mean Platelet Volume 8.8 fL (7.0-11.0); Mono # (Auto) 0.9 th/mm3 (0.0-0.9); Neut # (Auto) 11.5 th/mm3 (1.8-7.7); Neut % (Auto) 78.7 % (16.0-70.0); Platelet Count 257 th/mm3 (150-450); Red Blood Count 2.86 mil/mm3 (4.00-5.30); Red Cell Distribution Width 13.8 % (11.6-17.2); White Blood Count 14.7 th/mm3 (4.0-11.0)
[2018-07-24 07:11] LABS: Calcium 8.5 mg/dL (8.5-10.1); Carbon Dioxide 22.4 meq/L (21.0-32.0); Magnesium 1.9 mg/dL (1.5-2.5); Potassium 3.6 meq/L (3.5-5.1)
[2018-07-24] MEDS: Insulin NovoLOG Aspart Correctional Sugar Inj SQ SCH ×4 (08:40→21:18)
[2018-07-24] MEDS: Lisinopril 5 MG Tablet PO SCH (08:40)
[2018-07-24] MEDS: Spironolactone 50 MG Tablet PO SCH (08:42)
[2018-07-24] MEDS: Sodium Chloride 0.9% 2 ML Flush BID IV.FLUSH SCH ×2 (08:42→21:19)
--- NOTE | 2018-07-24 10:16 | P.PN ---
Subjective Interval history: Follow-up coagulopathy/labile benign hypertension/ July 24, 2018-patient seen and examined, denies any headaches, visual changes. BP up. Physical Exam Vital signs: Vital Signs 07/23/18 12:00 07/23/18 16:00 07/23/18 19:35 Temperature 98.0 F 97.5 F L Pulse Rate 61 53 L 75 Respiratory Rate 22 20 Blood Pressure 177/78 H 190/79 H 175/77 H Pulse Oximetry 94 L 97 07/23/18 20:00 07/23/18 21:00 07/24/18 00:00 Temperature 97.6 F 97.5 F L Pulse Rate 60 61 67 Respiratory Rate 18 18 Blood Pressure 221/85 H 152/67 H Pulse Oximetry 95 98 07/24/18 02:30 07/24/18 03:04 07/24/18 04:00 Temperature 97.7 F Pulse Rate 65 70 54 L Respiratory Rate 18 Blood Pressure 186/79 H 157/67 H Pulse Oximetry 97 07/24/18 05:18 07/24/18 07:42 Temperature 97.7 F Pulse Rate 61 56 L Respiratory Rate 14 18 Blood Pressure 218/84 H 173/74 H Pulse Oximetry 92 L 97 Intake & Output 07/23/18 07/24/18 07/24/18 18:59 06:59 18:59 Intake Total 1000 / 1000 Balance 1000 / 1000 Weight 83.2 kg Intake: IV 1000 / 1000 NS Inj 1,000 ML @ 70 mls/hr IV. 1000 / 1000 CONT .[id number] [facility] Rx#:[id number] Other: # Voids 1 Date of Last Bowel Movement 07/23/18 07/23/18 Narrative: GENERAL: NAD SKIN: Warm and dry. HEAD: Atraumatic. Normocephalic. EYES: Pupils equal and round. No scleral icterus. No injection or drainage. ENT: No nasal bleeding or discharge. Mucous membranes pink and moist. NECK: Trachea midline. No JVD. CARDIOVASCULAR: Regular rate and rhythm. RESPIRATORY: No accessory muscle use. Clear to auscultation. Breath sounds equal bilaterally. GASTROINTESTINAL: Abdomen soft, non-tender, nondistended. Hepatic and splenic margins not palpable. MUSCULOSKELETAL: Extremities without clubbing, cyanosis, or edema. No obvious deformities. NEUROLOGICAL: Awake and alert. No obvious cranial nerve deficits. Motor grossly within normal limits. Five out of 5 muscle strength in the arms and legs. Normal speech. PSYCHIATRIC: Appropriate mood and affect; insight and judgment normal. - Urinary Catheter Management Straight Cath placed during this visit: no Results - Labs CBC & Chem 7: 07/24/18 06:22 07/24/18 06:22 Laboratory Results - last 24 hr 07/23/18 07/23/18 07/23/18 11:52 16:12 21:02 WBC RBC Hgb Hct MCV MCH MCHC RDW Plt Count MPV Neut % (Auto) Lymph % (Auto) [place] % (Auto) Eos % (Auto) Baso % (Auto) Neut # (Auto) Lymph # (Auto) [place] # (Auto) Eos # (Auto) Baso # (Auto) WBC Differential Differential Comment APTT Sodium Potassium Chloride Carbon Dioxide Anion Gap BUN Creatinine Estimated GFR POC Glucose 163 H 191 H 187 H Random Glucose Calcium Magnesium 07/24/18 07/24/18 07/24/18 06:22 06:22 06:22 WBC 14.7 H RBC 2.86 L Hgb 8.9 L Hct 26.1 L MCV 91.0 MCH 31.1 MCHC 34.1 RDW 13.8 Plt Count 257 MPV 8.8 Neut % (Auto) 78.7 H Lymph % (Auto) 10.7 [place] % (Auto) 6.0 Eos % (Auto) 3.7 Baso % (Auto) 0.9 Neut # (Auto) 11.5 H Lymph # (Auto) 1.6 [place] # (Auto) 0.9 Eos # (Auto) 0.5 H Baso # (Auto) 0.1 WBC Differential . Differential Comment Auto diff final APTT 27.3 Sodium 143 Potassium 3.6 Chloride 111 H Carbon Dioxide 22.4 Anion Gap 10 BUN 18 Creatinine 0.68 Estimated GFR 84 L POC Glucose Random Glucose 110 H Calcium 8.5 Magnesium 1.9 07/24/18 07:31 WBC RBC Hgb Hct MCV MCH MCHC RDW Plt Count MPV Neut % (Auto) Lymph % (Auto) [place] % (Auto) Eos % (Auto) Baso % (Auto) Neut # (Auto) Lymph # (Auto) [place] # (Auto) Eos # (Auto) Baso # (Auto) WBC Differential Differential Comment APTT Sodium Potassium Chloride Carbon Dioxide Anion Gap BUN Creatinine Estimated GFR POC Glucose 124 H Random Glucose Calcium Magnesium - Procedures None Assessment and Plan - Plan 73-year-old female with Coagulopathy/supratherapeutic INR: INR 6.0 upon arrival -S/p Vit K 2.5mg PO x 1 on admission. -continue to Hold Coumadin -given 3 units of FFP and vitamin K 7.5 total since admission -INR is 1.1 and trended down -Recommend patient/family have discussion with cardiology regarding continuing anticoagulation as patient is high risk for fall/injury Parafalx subdural hematoma posteriorly on the right side of 1.1 cm New focal acute parafalx subdural hematoma posteriorly on the right side measuring 1.1 cm in thickness. No evidence of any significant mass effect or midline shift. Continue physical therapy and blood pressure control per neurosurgery. No surgical intervention needed at this time. Right Proximal Humerus Fracture: acute, s/p fall -RUE X-ray reviewed, shows mildly comminuted fracture of the right humeral head and neck -R Shoulder CT shows Comminuted humeral neck fracture with mild angular deformity. No dislocation. -Continue sling -Orthopedics consulted, nonsurgical, outpatient f/up with ortho in 2 weeks -NWB RUE -PT/OT consulted, recommends rehab, case management to assist with placement Labile benign hypertension Start Norvasc 5 mg daily and give clonidine 0.2 mg p.o. x1 now July 24, 2018 Continue lisinopril 5 mg daily Acute Blood Loss Anemia: -given 2 u pRBC transfusion -repeat hemoglobin stable. Paroxysmal A. fib: chronic -EKG reviewed, shows afib with SVR -rate controlled Warfarin anticoagulation has been stopped. EDNA: suspect prerenal secondary to dehydration. Cr 1.19, previously 0.8 in Jun 2017 -Given gentle IV fluid hydration -avoid all nephrotoxins -BUN/creatinine improved. Hypokalemiareplete Right Forehead/Temporal Laceration: secondary to fall -temporal laceration with previous significant bleeding which now has resolved. Other chronic medical conditions, stable -Continue outpatient medications DVT prophylaxis: Anticoagulation contraindicated secondary to subdural hematoma Case management consulted
[2018-07-24] MEDS: amLODIPine 5 MG Tablet PO SCH (10:39)
--- NOTE | 2018-07-24 13:04 | P.PNNS ---
Subjective Interval history: Pt awake and alert. Denies headache, no nausea, vomiting, muscle weakness. Follows commands well. <Anderson Borges - Last Filed: 07/24/18 12:56> Physical Exam Vital signs: Vital Signs 07/23/18 16:00 07/23/18 19:35 07/23/18 20:00 Temperature 97.5 F L 97.6 F Pulse Rate 53 L 75 60 Respiratory Rate 20 18 Blood Pressure 190/79 H 175/77 H 221/85 H Pulse Oximetry 97 95 07/23/18 21:00 07/24/18 00:00 07/24/18 02:30 Temperature 97.5 F L Pulse Rate 61 67 65 Respiratory Rate 18 Blood Pressure 152/67 H 186/79 H Pulse Oximetry 98 07/24/18 03:04 07/24/18 04:00 07/24/18 05:18 Temperature 97.7 F Pulse Rate 70 54 L 61 Respiratory Rate 18 14 Blood Pressure 157/67 H 218/84 H Pulse Oximetry 97 92 L 07/24/18 07:42 07/24/18 11:59 Temperature 97.7 F 97.5 F L Pulse Rate 56 L 57 L Respiratory Rate 18 18 Blood Pressure 173/74 H 198/84 H Pulse Oximetry 97 97 Intake & Output 07/23/18 07/24/18 07/24/18 18:59 06:59 18:59 Intake Total 1000 / 1000 740 / 740 Balance 1000 / 1000 740 / 740 Weight 83.2 kg Intake: IV 1000 / 1000 500 / 500 NS Inj 1,000 ML @ 70 mls/hr IV. 1000 / 1000 500 / 500 CONT .[id number] [facility] Rx#:[id number] Oral 240 / 240 Other: # Voids 1 Date of Last Bowel Movement 07/23/18 07/23/18 - Constitutional no acute distress, obese, cooperative - Routine HEENT Exam Head: Absent: atraumatic Eye: Present: PERRL (Pupils 3mm bilaterally reactive bilaterally.), periorbital ecchymosis (Right.) - Routine Respiratory Exam Present: CTA bilaterally. Absent: respiratory distress, rhonchi, wheezes - Routine Cardiovascular Exam Present: RRR, S1, S2. Absent: murmur - Routine Abdominal Exam Present: soft, normoactive bowel sounds. Absent: distended - Routine Extremities Exam Comments: SCDs intact. - Routine Skin Exam Absent: cyanosis, erythema - Routine Neurological Exam Present: alert, moving all extremities, normal speech. Absent: motor deficit, hemineglect - Routine Psychiatric Exam Present: normal affect, cooperative. Absent: anxious, agitated - Urinary Catheter Management Straight Cath placed during this visit: no <Anderson Borges - Last Filed: 07/24/18 12:56> Vital signs: Vital Signs 07/23/18 19:35 07/23/18 20:00 07/23/18 21:00 Temperature 97.6 F Pulse Rate 75 60 61 Respiratory Rate 18 Blood Pressure 175/77 H 221/85 H Pulse Oximetry 95 07/24/18 00:00 07/24/18 02:30 07/24/18 03:04 Temperature 97.5 F L 97.7 F Pulse Rate 67 65 70 Respiratory Rate 18 18 Blood Pressure 152/67 H 186/79 H 157/67 H Pulse Oximetry 98 97 07/24/18 04:00 07/24/18 05:18 07/24/18 07:42 Temperature 97.7 F Pulse Rate 54 L 61 56 L Respiratory Rate 14 18 Blood Pressure 218/84 H 173/74 H Pulse Oximetry 92 L 97 07/24/18 11:59 07/24/18 13:18 07/24/18 15:44 Temperature 97.5 F L 97.5 F L Pulse Rate 57 L 61 Respiratory Rate 18 18 Blood Pressure 198/84 H 178/68 H Pulse Oximetry 97 98 07/24/18 16:28 Temperature Pulse Rate Respiratory Rate Blood Pressure 180/76 H Pulse Oximetry Intake & Output 07/23/18 07/24/18 07/24/18 18:59 06:59 18:59 Intake Total 1000 / 1000 740 / 740 Balance 1000 / 1000 740 / 740 Weight 83.2 kg Intake: IV 1000 / 1000 500 / 500 NS Inj 1,000 ML @ 70 mls/hr IV. 1000 / 1000 500 / 500 CONT .[id number] Rx#:[id number] Oral 240 / 240 Other: # Voids 1 Date of Last Bowel Movement 07/23/18 07/23/18 - Urinary Catheter Management Straight Cath placed during this visit: no <Edilberto Hernandez - Last Filed: 07/24/18 16:44> Assessment and Plan - Assessment (1) Concussion without loss of consciousness Code(s): S06.0X0A - Concussion without loss of consciousness, initial encounter Status: Acute Qualifiers: Encounter type: initial encounter Qualified Code(s): S06.0X0A - Concussion without loss of consciousness, initial encounter (2) Fracture, humerus closed Code(s): S42.309A - Unspecified fracture of shaft of humerus, unspecified arm, initial encounter for closed fracture Status: Acute Qualifiers: Encounter type: initial encounter Humerus Location: surgical neck Fracture morphology: unspecified fracture morphology Fracture alignment: displaced Laterality: right Qualified Code(s): S42.211A - Unspecified displaced fracture of surgical neck of right humerus, initial encounter for closed fracture (3) Warfarin-induced coagulopathy Code(s): D68.32 - Hemorrhagic disorder due to extrinsic circulating anticoagulants; T45.515A - Adverse effect of anticoagulants, initial encounter Status: Acute (4) Forehead laceration Code(s): S01.81XA - Laceration without foreign body of other part of head, initial encounter Status: Acute Qualifiers: Encounter type: initial encounter Qualified Code(s): S01.81XA - Laceration without foreign body of other part of head, initial encounter (5) Skin tear of elbow without complication Code(s): S51.019A - Laceration without foreign body of unspecified elbow, initial encounter Status: Acute Qualifiers: Encounter type: initial encounter Laterality: left Qualified Code(s): S51.012A - Laceration without foreign body of left elbow, initial encounter (6) Subdural hematoma, acute Code(s): S06.5X9A - Traumatic subdural hemorrhage with loss of consciousness of unspecified duration, initial encounter Status: Acute (7) Concussion with brief LOC Code(s): S06.0X9A - Concussion with loss of consciousness of unspecified duration, initial encounter Status: Acute (8) Atrial fibrillation Code(s): I48.91 - Unspecified atrial fibrillation Status: Chronic Qualifiers: Atrial fibrillation type: chronic Qualified Code(s): I48.2 - Chronic atrial fibrillation - Plan 73-year-old lady with a occipital interhemispheric subdural hemorrhage with slight enlargement since presentation without any associated neurologic symptoms. Her PT/INR was supratherapeutic on presentation and although improved received additional FFP and Vitamin K. P: Continue with blood pressure control Continue with neuro check Continue with rehab efforts. Advance activity with assistance. <Anderson Borges - Last Filed: 07/24/18 12:56> - Assessment (1) Subdural hematoma, acute Code(s): S06.5X9A - Traumatic subdural hemorrhage with loss of consciousness of unspecified duration, initial encounter Status: Acute (2) Concussion with brief LOC Code(s): S06.0X9A - Concussion with loss of consciousness of unspecified duration, initial encounter Status: Acute (3) Fracture, humerus closed Code(s): S42.309A - Unspecified fracture of shaft of humerus, unspecified arm, initial encounter for closed fracture Status: Acute Qualifiers: Encounter type: initial encounter Humerus Location: surgical neck Fracture morphology: unspecified fracture morphology Fracture alignment: displaced Laterality: right Qualified Code(s): S42.211A - Unspecified displaced fracture of surgical neck of right humerus, initial encounter for closed fracture (4) Warfarin-induced coagulopathy Code(s): D68.32 - Hemorrhagic disorder due to extrinsic circulating anticoagulants; T45.515A - Adverse effect of anticoagulants, initial encounter Status: Acute (5) Atrial fibrillation Code(s): I48.91 - Unspecified atrial fibrillation Status: Chronic Qualifiers: Atrial fibrillation type: chronic Qualified Code(s): I48.2 - Chronic atrial fibrillation - Attending Attestation The exam, history, and the medical decision-making described in the above note were completed with the assistance of the mid-level provider. I reviewed and agree with the findings presented. I attest that I had a [id number] encounter with the patient on the same day, and personally performed and documented my assessment and findings in the medical record. <Edilberto Hernandez - Last Filed: 07/24/18 16:44>
[2018-07-25] MEDS: hydrALAZINE 25 MG Tablet PO PRN ×2 (05:06→09:46)
[2018-07-25] MEDS: Morphine Sulfate Inj 2 MG/ML Vial IV.PUSH PRN ×2 (06:39→23:31)
[2018-07-25] MEDS: Insulin NovoLOG Aspart Correctional Sugar Inj SQ SCH ×4 (09:27→21:10)
[2018-07-25] MEDS: Sodium Chloride 0.9% 2 ML Flush BID IV.FLUSH SCH ×2 (09:46→21:10)
[2018-07-25] MEDS: Lisinopril 5 MG Tablet PO SCH (09:46)
[2018-07-25] MEDS: Spironolactone 50 MG Tablet PO SCH (09:46)
[2018-07-25] MEDS: amLODIPine 5 MG Tablet PO SCH (09:46)
--- NOTE | 2018-07-25 11:15 | P.PN ---
Subjective Interval history: Follow-up coagulopathy/labile benign hypertension/ July 24, 2018-patient seen and examined, denies any headaches, visual changes. BP up. July 25, 2018-patient seen and examined, planes of right upper extremity pain. BP labile. No nausea no vomiting. No headaches. Physical Exam Vital signs: Vital Signs 07/24/18 11:59 07/24/18 13:18 07/24/18 15:44 Temperature 97.5 F L 97.5 F L Pulse Rate 57 L 61 Respiratory Rate 18 18 Blood Pressure 198/84 H 178/68 H Pulse Oximetry 97 98 07/24/18 16:28 07/24/18 18:33 07/24/18 20:00 Temperature 98.1 F Pulse Rate 71 69 Respiratory Rate 18 Blood Pressure 180/76 H 244/107 H Pulse Oximetry 96 07/25/18 00:00 07/25/18 00:21 07/25/18 04:00 Temperature 98.8 F Pulse Rate 50 L 63 50 L Respiratory Rate 15 Blood Pressure 204/84 H Pulse Oximetry 97 07/25/18 04:21 07/25/18 06:42 07/25/18 08:00 Temperature 98.6 F 97.9 F Pulse Rate 63 64 Respiratory Rate 18 Blood Pressure 217/95 H 192/86 H 192/82 H Pulse Oximetry 99 98 Intake & Output 07/24/18 07/25/18 07/25/18 18:59 06:59 18:59 Intake Total 1340 / 1340 Output Total 450 / 450 Balance 1340 / 1340 -450 / -450 Weight 84.2 kg Intake: IV 500 / 500 NS Inj 1,000 ML @ 70 mls/hr IV. 500 / 500 CONT .[id number] [facility] Rx#:[id number] Oral 840 / 840 Output: Urine 450 / 450 Other: # Voids 2 Date of Last Bowel Movement 07/23/18 07/23/18 Narrative: GENERAL: NAD SKIN: Warm and dry. HEAD: Atraumatic. Normocephalic. EYES: Pupils equal and round. No scleral icterus. No injection or drainage. ENT: No nasal bleeding or discharge. Mucous membranes pink and moist. NECK: Trachea midline. No JVD. CARDIOVASCULAR: Regular rate and rhythm. RESPIRATORY: No accessory muscle use. Clear to auscultation. Breath sounds equal bilaterally. GASTROINTESTINAL: Abdomen soft, non-tender, nondistended. Hepatic and splenic margins not palpable. MUSCULOSKELETAL: Extremities without clubbing, cyanosis, or edema. No obvious deformities. Right upper extremity in sling NEUROLOGICAL: Awake and alert. No obvious cranial nerve deficits. Motor grossly within normal limits. Five out of 5 muscle strength in the arms and legs. Normal speech. PSYCHIATRIC: Appropriate mood and affect; insight and judgment normal. - Urinary Catheter Management Straight Cath placed during this visit: no Results - Labs CBC & Chem 7: 07/24/18 06:22 07/24/18 06:22 Laboratory Results - last 24 hr 07/24/18 07/24/18 07/24/18 12:25 16:16 21:15 APTT POC Glucose 135 H 152 H 163 H 07/25/18 07/25/18 04:10 07:55 APTT 26.3 POC Glucose 114 H - Procedures None Assessment and Plan - Plan 73-year-old female with Coagulopathy/supratherapeutic INR: INR 6.0 upon arrival-Now resolved -S/p Vit K 2.5mg PO x 1 on admission. -continue to Hold Coumadin -given 3 units of FFP and vitamin K 7.5 total since admission -INR is 1.1 and trended down -Recommend patient/family have discussion with cardiology regarding continuing anticoagulation as patient is high risk for fall/injury Parafalx subdural hematoma posteriorly on the right side of 1.1 cm New focal acute parafalx subdural hematoma posteriorly on the right side measuring 1.1 cm in thickness. No evidence of any significant mass effect or midline shift. Continue physical therapy and blood pressure control per neurosurgery. No surgical intervention needed at this time. Right Proximal Humerus Fracture: acute, s/p fall -RUE X-ray reviewed, shows mildly comminuted fracture of the right humeral head and neck -R Shoulder CT shows Comminuted humeral neck fracture with mild angular deformity. No dislocation. -Continue sling -Orthopedics consulted, nonsurgical, outpatient f/up with ortho in 2 weeks -NWB RUE -PT/OT consulted, recommends rehab, case management to assist with placement Labile benign hypertension Currently on Norvasc 5 mg daily and start clonidine 0.2 mg p.o. Q12H July 25, 2018 Continue lisinopril 5 mg daily Acute Blood Loss Anemia: -given 2 u pRBC transfusion -H&H remained stable. Paroxysmal A. fib: chronic -EKG reviewed, shows afib with SVR -rate controlled Warfarin anticoagulation has been stopped. 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 Cr 1.19, previously 0.8 in Jun 2017 -Given gentle IV fluid hydration -avoid all nephrotoxins -BUN/creatinine improved. Hypokalemiareplete Right Forehead/Temporal Laceration: secondary to fall -temporal laceration with previous significant bleeding which now has resolved. Other chronic medical conditions, stable -Continue outpatient medications DVT prophylaxis: Anticoagulation contraindicated secondary to subdural hematoma
--- NOTE | 2018-07-25 13:05 | P.PNNS ---
Subjective Interval history: Doing well Physical Exam Vital signs: Vital Signs 07/24/18 13:18 07/24/18 15:44 07/24/18 16:28 Temperature 97.5 F L Pulse Rate 61 Respiratory Rate 18 Blood Pressure 178/68 H 180/76 H Pulse Oximetry 98 07/24/18 18:33 07/24/18 20:00 07/25/18 00:00 Temperature 98.1 F Pulse Rate 71 69 50 L Respiratory Rate 18 Blood Pressure 244/107 H Pulse Oximetry 96 07/25/18 00:21 07/25/18 04:00 07/25/18 04:21 Temperature 98.8 F 98.6 F Pulse Rate 63 50 L 63 Respiratory Rate 15 Blood Pressure 204/84 H 217/95 H Pulse Oximetry 97 99 07/25/18 06:42 07/25/18 08:00 07/25/18 12:00 Temperature 97.9 F 98.4 F Pulse Rate 64 55 L Respiratory Rate 18 18 Blood Pressure 192/86 H 192/82 H 186/110 H Pulse Oximetry 98 96 Intake & Output 07/24/18 07/25/18 07/25/18 18:59 06:59 18:59 Intake Total 1340 / 1340 Output Total 450 / 450 Balance 1340 / 1340 -450 / -450 Weight 84.2 kg Intake: IV 500 / 500 NS Inj 1,000 ML @ 70 mls/hr IV. 500 / 500 CONT .[id number] [facility] Rx#:[id number] Oral 840 / 840 Output: Urine 450 / 450 Other: # Voids 2 Date of Last Bowel Movement 07/23/18 07/23/18 Narrative: A&O x 3 CN II-XII intact Motor 5/5 UE/LE - Urinary Catheter Management Straight Cath placed during this visit: no Assessment and Plan - Assessment (1) Subdural hematoma, acute Code(s): S06.5X9A - Traumatic subdural hemorrhage with loss of consciousness of unspecified duration, initial encounter Status: Acute (2) Concussion with brief LOC Code(s): S06.0X9A - Concussion with loss of consciousness of unspecified duration, initial encounter Status: Acute (3) Fracture, humerus closed Code(s): S42.309A - Unspecified fracture of shaft of humerus, unspecified arm, initial encounter for closed fracture Status: Acute Qualifiers: Encounter type: initial encounter Humerus Location: surgical neck Fracture morphology: unspecified fracture morphology Fracture alignment: displaced Laterality: right Qualified Code(s): S42.211A - Unspecified displaced fracture of surgical neck of right humerus, initial encounter for closed fracture (4) Warfarin-induced coagulopathy Code(s): D68.32 - Hemorrhagic disorder due to extrinsic circulating anticoagulants; T45.515A - Adverse effect of anticoagulants, initial encounter Status: Acute (5) Atrial fibrillation Code(s): I48.91 - Unspecified atrial fibrillation Status: Chronic Qualifiers: Atrial fibrillation type: chronic Qualified Code(s): I48.2 - Chronic atrial fibrillation - Plan 73-year-old lady with a occipital interhemispheric subdural hemorrhage with slight enlargement since presentation without any associated neurologic symptoms. Her PT/INR was supratherapeutic on presentation and although improved received additional FFP and Vitamin K. P: Continue with blood pressure control Continue with neuro check. Cleared from Neurosurgical point of view. Continue with rehab efforts. Advance activity with assistance. Would not reanticoagulate without repeating scan first
[2018-07-26] MEDS: hydrALAZINE 25 MG Tablet PO PRN ×3 (06:56→19:19)
[2018-07-26] MEDS: Morphine Sulfate Inj 2 MG/ML Vial IV.PUSH PRN (09:10)
[2018-07-26] MEDS: Spironolactone 50 MG Tablet PO SCH (09:10)
[2018-07-26] MEDS: amLODIPine 5 MG Tablet PO SCH (09:10)
[2018-07-26] MEDS: Lisinopril 5 MG Tablet PO SCH (09:10)
[2018-07-26] MEDS: Insulin NovoLOG Aspart Correctional Sugar Inj SQ SCH ×4 (09:15→21:49)
--- NOTE | 2018-07-26 11:06 | P.PN ---
Subjective Interval history: Follow-up coagulopathy/labile benign hypertension/ July 24, 2018-patient seen and examined, denies any headaches, visual changes. BP up. July 25, 2018-patient seen and examined, planes of right upper extremity pain. BP labile. No nausea no vomiting. No headaches. July 26, 2018-patient seen and examined, BP remains labile. Patient with not much of an appetite. Denies any right upper extremity pain. Physical Exam Vital signs: Vital Signs 07/25/18 12:00 07/25/18 16:00 07/25/18 20:00 Temperature 98.4 F 98.4 F 98.7 F Pulse Rate 55 L 61 46 L Respiratory Rate 18 18 20 Blood Pressure 186/110 H 132/85 206/85 H Pulse Oximetry 96 96 07/25/18 22:18 07/25/18 23:31 07/25/18 23:52 Temperature 98.3 F Pulse Rate 50 L Respiratory Rate 17 17 17 Blood Pressure 130/72 Pulse Oximetry 97 07/26/18 00:00 07/26/18 04:00 07/26/18 08:00 Temperature 98.5 F 97.4 F L 98.5 F Pulse Rate 46 L 62 50 L Respiratory Rate 18 20 18 Blood Pressure 157/73 H 187/78 H 175/73 H Pulse Oximetry 98 93 L 96 Intake & Output 07/25/18 07/26/18 07/26/18 18:59 06:59 18:59 Output Total 700 / 700 400 / 400 Balance -700 / -700 -400 / -400 Weight 84.2 kg Output: Urine 450 / 450 400 / 400 Urine Amount (Catheter) 250 / 250 Straight 250 / 250 Other: # Voids 2 Date of Last Bowel Movement 07/23/18 07/24/18 # Bowel Movements 0 Narrative: GENERAL: NAD SKIN: Warm and dry. HEAD: Atraumatic. Normocephalic. EYES: Pupils equal and round. No scleral icterus. No injection or drainage. ENT: No nasal bleeding or discharge. Mucous membranes pink and moist. NECK: Trachea midline. No JVD. CARDIOVASCULAR: Regular rate and rhythm. RESPIRATORY: No accessory muscle use. Clear to auscultation. Breath sounds equal bilaterally. GASTROINTESTINAL: Abdomen soft, non-tender, nondistended. Hepatic and splenic margins not palpable. MUSCULOSKELETAL: Extremities without clubbing, cyanosis, or edema. No obvious deformities. RUE in sling-neurovascular intact NEUROLOGICAL: Awake and alert. No obvious cranial nerve deficits. Motor grossly within normal limits. Five out of 5 muscle strength in the arms and legs. PSYCHIATRIC: Appropriate mood and affect; insight and judgment normal. - Urinary Catheter Management Straight Cath placed during this visit: no Results - Labs CBC & Chem 7: 07/24/18 06:22 07/24/18 06:22 Laboratory Results - last 24 hr 07/25/18 07/25/18 07/25/18 14:50 18:19 21:01 POC Glucose 118 H 184 H 147 H 07/26/18 09:14 POC Glucose 112 H - Procedures None Assessment and Plan - Plan 73-year-old female with Coagulopathy/supratherapeutic INR: INR 6.0 upon arrival-Now resolved -S/p Vit K 2.5mg PO x 1 on admission. -continue to Hold Coumadin -given 3 units of FFP and vitamin K 7.5 total since admission -INR is 1.1 and trended down -Recommend patient/family have discussion with cardiology regarding continuing anticoagulation as patient is high risk for fall/injury Parafalx subdural hematoma posteriorly on the right side of 1.1 cm New focal acute parafalx subdural hematoma posteriorly on the right side measuring 1.1 cm in thickness. No evidence of any significant mass effect or midline shift. Continue physical therapy and blood pressure control per neurosurgery. No surgical intervention needed at this time. Right Proximal Humerus Fracture: acute, s/p fall -RUE X-ray reviewed, shows mildly comminuted fracture of the right humeral head and neck -R Shoulder CT shows Comminuted humeral neck fracture with mild angular deformity. No dislocation. -Continue sling -Orthopedics consulted, nonsurgical, outpatient f/up with ortho in 2 weeks -NWB RUE -PT/OT consulted, recommends rehab, case management to assist with placement Labile benign hypertension Currently on Norvasc 5 mg daily and clonidine 0.2 mg p.o. Q12H Continue lisinopril 5 mg daily Acute Blood Loss Anemia: -given 2 u pRBC transfusion -H&H remained stable. Paroxysmal A. fib: chronic -EKG reviewed, shows afib with SVR -rate controlled Warfarin anticoagulation has been stopped. 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 Cr 1.19, previously 0.8 in Jun 2017 -Resolved -avoid all nephrotoxins -BUN/creatinine improved. Hypokalemiareplete Right Forehead/Temporal Laceration: secondary to fall -temporal laceration with previous significant bleeding which now has resolved. Other chronic medical conditions, stable -Continue outpatient medications DVT prophylaxis: Anticoagulation contraindicated secondary to subdural hematoma
[2018-07-26] MEDS: Sodium Chloride 0.9% 2 ML Flush BID IV.FLUSH SCH ×2 (12:02→21:50)
[2018-07-27] MEDS: Insulin NovoLOG Aspart Correctional Sugar Inj SQ SCH ×4 (08:58→20:53)
[2018-07-27] MEDS: Spironolactone 50 MG Tablet PO SCH (08:59)
[2018-07-27] MEDS: amLODIPine 5 MG Tablet PO SCH (09:00)
[2018-07-27] MEDS: Lisinopril 5 MG Tablet PO SCH (09:01)
--- NOTE | 2018-07-27 09:10 | P.PN ---
Subjective Interval history: Follow-up coagulopathy/labile benign hypertension/ July 24, 2018-patient seen and examined, denies any headaches, visual changes. BP up. July 25, 2018-patient seen and examined, planes of right upper extremity pain. BP labile. No nausea no vomiting. No headaches. July 26, 2018-patient seen and examined, BP remains labile. Patient with not much of an appetite. Denies any right upper extremity pain. July 27, 2018-patient seen and examined, stable, no complaint, BP improved. State, she would like to be discharged to rehab facility now Physical Exam Vital signs: Vital Signs 07/26/18 12:00 07/26/18 16:00 07/26/18 20:00 Temperature 98.6 F 98.1 F Pulse Rate 52 L 62 51 L Respiratory Rate 18 18 Blood Pressure 187/74 H 202/86 H Pulse Oximetry 97 98 07/26/18 21:48 07/27/18 00:00 07/27/18 03:18 Temperature 97.6 F Pulse Rate 60 47 L 44 L Respiratory Rate 21 Blood Pressure 130/89 Pulse Oximetry 92 L 07/27/18 04:00 Temperature 97.9 F Pulse Rate 52 L Respiratory Rate 18 Blood Pressure 119/70 Pulse Oximetry 92 L Intake & Output 07/26/18 07/27/18 07/27/18 18:59 06:59 18:59 Intake Total 740 / 740 Output Total 700 / 700 600 / 600 Balance 40 / 40 -600 / -600 Weight 84.2 kg Intake: Oral 740 / 740 Output: Urine 700 / 700 600 / 600 Other: Date of Last Bowel Movement 07/24/18 07/24/18 # Bowel Movements 0 Narrative: GENERAL: NAD SKIN: Warm and dry. HEAD: Atraumatic. Normocephalic. EYES: Pupils equal and round. No scleral icterus. No injection or drainage. ENT: No nasal bleeding or discharge. Mucous membranes pink and moist. NECK: Trachea midline. No JVD. CARDIOVASCULAR: Regular rate and rhythm. RESPIRATORY: No accessory muscle use. Clear to auscultation. Breath sounds equal bilaterally. GASTROINTESTINAL: Abdomen soft, non-tender, nondistended. Hepatic and splenic margins not palpable. MUSCULOSKELETAL: Extremities without clubbing, cyanosis, or edema. No obvious deformities. RUE in sling-neurovascular intact NEUROLOGICAL: Awake and alert. No obvious cranial nerve deficits. Motor grossly within normal limits. Five out of 5 muscle strength in the arms and legs. PSYCHIATRIC: Appropriate mood and affect; insight and judgment normal. - Urinary Catheter Management Straight Cath placed during this visit: no Results - Labs CBC & Chem 7: 07/24/18 06:22 07/24/18 06:22 Laboratory Results - last 24 hr 07/26/18 07/26/18 07/26/18 09:14 11:56 13:10 POC Glucose 112 H 144 H 133 H 07/26/18 07/26/18 19:18 21:46 POC Glucose 114 H 127 H - Procedures None Assessment and Plan - Plan 73-year-old female with Coagulopathy/supratherapeutic INR: INR 6.0 upon arrival-Now resolved -S/p Vit K 2.5mg PO x 1 on admission. -continue to Hold Coumadin -given 3 units of FFP and vitamin K 7.5 total since admission -INR is 1.1 and trended down -Recommend patient/family have discussion with cardiology regarding continuing anticoagulation as patient is high risk for fall/injury Parafalx subdural hematoma posteriorly on the right side of 1.1 cm New focal acute parafalx subdural hematoma posteriorly on the right side measuring 1.1 cm in thickness. No evidence of any significant mass effect or midline shift. Continue physical therapy and blood pressure control per neurosurgery. No surgical intervention needed at this time. Right Proximal Humerus Fracture: acute, s/p fall -RUE X-ray reviewed, shows mildly comminuted fracture of the right humeral head and neck -R Shoulder CT shows Comminuted humeral neck fracture with mild angular deformity. No dislocation. -Continue sling -Orthopedics consulted, nonsurgical, outpatient f/up with ortho in 2 weeks -NWB RUE -PT/OT consulted, recommends rehab, case management to assist with placement Labile benign hypertension-improving Currently on Norvasc 5 mg daily and clonidine 0.2 mg p.o. Q12H Continue lisinopril 5 mg daily Acute Blood Loss Anemia: -given 2 u pRBC transfusion -H&H remained stable. Paroxysmal A. fib: chronic -EKG reviewed, shows afib with SVR -rate controlled Warfarin anticoagulation has been stopped. Patient to follow outpatient with wheelchair van driver for initiation of oral anticoagulation EDNA: suspect prerenal secondary to dehydration. Cr 1.19, previously 0.8 in Jun 2017 -Resolved -avoid all nephrotoxins -BUN/creatinine improved. Hypokalemiareplete Right Forehead/Temporal Laceration: secondary to fall -temporal laceration with previous significant bleeding which now has resolved. Other chronic medical conditions, stable -Continue outpatient medications DVT prophylaxis: Anticoagulation contraindicated secondary to subdural hematoma [facility] Prescription Drug Monitoring Database has been queried and verified prior to prescribing the controlled substance. Acute pain exception: This patient has normal, predicted, physiological, and time limited response to an adverse mechanical stimulus associated with surgery , trauma, or acute illness as described in my notes. There is a lack of alternative treatment options other than to include the prescribed narcotic treatment for this condition.
--- NOTE | 2018-07-27 09:16 | P.DS ---
Date of admission: 07/18/18 18:44 Primary care physician: George Zuñiga MD Brief History from admission: 73-year-old female for past medical history of dementia, paroxysmal A. fib on chronic Coumadin was brought to the ED for evaluation of fall, as a result of which patient complains of right arm pain. Patient has not recollection of the fall, however she denies any head trauma. Per ED physician she was amnesic during her exam. However head CT has no Acute intracranial bleeding. Patient was found to have fracture of right proximal humerus. She was also found to have elevated INR. During my exam, she denies any chest pain or shortness of breath. She was oriented to self, date and place. DS: Medications - Discharge Medications Prescriptions: hydrocodone-acetaminophen [[place]] 1 tab PO Q4H #10 tab DS: Summary Hospital Course: While in hospital, patient was treated for: Coagulopathy/supratherapeutic INR: INR 6.0 upon arrival-Now resolved -S/p Vit K 2.5mg PO x 1 on admission. -continue to Hold Coumadin -given 3 units of FFP and vitamin K 7.5 total since admission -INR is 1.1 and trended down -Recommend patient/family have discussion with cardiology regarding continuing anticoagulation as patient is high risk for fall/injury Parafalx subdural hematoma posteriorly on the right side of 1.1 cm New focal acute parafalx subdural hematoma posteriorly on the right side measuring 1.1 cm in thickness. No evidence of any significant mass effect or midline shift. Continue physical therapy and blood pressure control per neurosurgery. No surgical intervention needed at this time. Right Proximal Humerus Fracture: acute, s/p fall -RUE X-ray reviewed, shows mildly comminuted fracture of the right humeral head and neck -R Shoulder CT shows Comminuted humeral neck fracture with mild angular deformity. No dislocation. -Continue sling -Orthopedics consulted, nonsurgical, outpatient f/up with ortho in 2 weeks -NWB RUE -PT/OT consulted, recommends rehab, case management to assist with placement Labile benign hypertension-improving Currently on Norvasc 5 mg daily and clonidine 0.2 mg p.o. Q12H Continue lisinopril 5 mg daily Acute Blood Loss Anemia: -given 2 u pRBC transfusion -H&H remained stable. Paroxysmal A. fib: chronic -EKG reviewed, shows afib with SVR -rate controlled Warfarin anticoagulation has been stopped. 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 Cr 1.19, previously 0.8 in Jun 2017 -Resolved -avoid all nephrotoxins -BUN/creatinine improved. Hypokalemiareplete Right Forehead/Temporal Laceration: secondary to fall -temporal laceration with previous significant bleeding which now has resolved. Other chronic medical conditions, stable -Continue outpatient medications DVT prophylaxis: Anticoagulation contraindicated secondary to subdural hematoma - Time Spent with Patient Total time spent providing and/or coordinating discharge services: Greater than 30 minutes - Quality: VTE Deep Vein Thrombosis/Pulmonary Embolism Present on Admission: No Exam Vital signs: Vital Signs 07/26/18 12:00 07/26/18 16:00 07/26/18 20:00 Temperature 98.6 F 98.1 F Pulse Rate 52 L 62 51 L Respiratory Rate 18 18 Blood Pressure 187/74 H 202/86 H Pulse Oximetry 97 98 07/26/18 21:48 07/27/18 00:00 07/27/18 03:18 Temperature 97.6 F Pulse Rate 60 47 L 44 L Respiratory Rate 21 Blood Pressure 130/89 Pulse Oximetry 92 L 07/27/18 04:00 Temperature 97.9 F Pulse Rate 52 L Respiratory Rate 18 Blood Pressure 119/70 Pulse Oximetry 92 L Intake & Output 07/26/18 07/27/18 07/27/18 18:59 06:59 18:59 Intake Total 740 / 740 Output Total 700 / 700 600 / 600 Balance 40 / 40 -600 / -600 Weight 84.2 kg Intake: Oral 740 / 740 Output: Urine 700 / 700 600 / 600 Other: Date of Last Bowel Movement 07/24/18 07/24/18 # Bowel Movements 0 Narrative: GENERAL: NAD SKIN: Warm and dry. HEAD: Atraumatic. Normocephalic. EYES: Pupils equal and round. No scleral icterus. No injection or drainage. ENT: No nasal bleeding or discharge. Mucous membranes pink and moist. NECK: Trachea midline. No JVD. CARDIOVASCULAR: Regular rate and rhythm. RESPIRATORY: No accessory muscle use. Clear to auscultation. Breath sounds equal bilaterally. GASTROINTESTINAL: Abdomen soft, non-tender, nondistended. Hepatic and splenic margins not palpable. MUSCULOSKELETAL: Extremities without clubbing, cyanosis, or edema. No obvious deformities. RUE in sling-neurovascular intact NEUROLOGICAL: Awake and alert. No obvious cranial nerve deficits. Motor grossly within normal limits. Five out of 5 muscle strength in the arms and legs. PSYCHIATRIC: Appropriate mood and affect; insight and judgment normal. Results Procedures completed during hospitalization: None Labs on day of discharge: Labs from last 24 hours 07/26/18 07/26/18 07/26/18 21:46 19:18 13:10 POC Glucose 127 H 114 H 133 H 07/26/18 07/26/18 11:56 09:14 POC Glucose 144 H 112 H - Impressions ITS Impressions Humerus X-Ray 07/18/18 11:28 CONCLUSION: Mildly comminuted fracture of the right humeral head and neck. Shoulder CT 07/19/18 00:00 CONCLUSION: 1. Comminuted humeral neck fracture with mild angular deformity. No dislocation. Head CT 07/20/18 00:00 CONCLUSION: 1. New focal acute parafalx subdural hematoma posteriorly on the right side measuring 1.1 cm in thickness. No evidence of any significant mass effect or midline shift. . Discharge Plan - Discharge Disposition Patient Disposition: Discharge to SNF - Discharge Condition Condition: Fair - Discharge Order Discharge Orders: Discharge Order (Routine); Ordered 07/27/18 Ordered By: Anderson Polk - Physicians Team Primary Care Provider: George Zuñiga Attending Provider: Anderson Polk Other Providers: Marcelo Lester MD ; Dave,[employer] ; [facility], [place] ; Edilberto Hernandez MD
[2018-07-27] MEDS: Sodium Chloride 0.9% 2 ML Flush BID IV.FLUSH SCH ×2 (10:54→20:50)
[2018-07-27] MEDS: Morphine Sulfate Inj 2 MG/ML Vial IV.PUSH PRN ×2 (11:57→22:24)
[2018-07-27] MEDS: hydrALAZINE 25 MG Tablet PO PRN (13:56)
--- NOTE | 2018-07-27 17:30 | P.PNNS ---
Subjective Interval history: Pt seen and examined this morning. She is awake and alert. Denies headache, nausea or vomiting. <Anderson Borges - Last Filed: 07/27/18 17:26> Physical Exam Vital signs: Vital Signs 07/26/18 20:00 07/26/18 21:48 07/27/18 00:00 Temperature 97.6 F Pulse Rate 51 L 60 47 L Respiratory Rate 21 Blood Pressure 130/89 Pulse Oximetry 92 L 07/27/18 03:18 07/27/18 04:00 07/27/18 08:00 Temperature 97.9 F 98.4 F Pulse Rate 44 L 52 L 51 L Respiratory Rate 18 20 Blood Pressure 119/70 198/81 H Pulse Oximetry 92 L 98 07/27/18 09:00 07/27/18 09:58 07/27/18 10:30 Temperature Pulse Rate 50 L Respiratory Rate Blood Pressure 176/74 H 142/70 H Pulse Oximetry 07/27/18 12:00 07/27/18 16:00 Temperature 98.2 F 98.8 F Pulse Rate 56 L 52 L Respiratory Rate 20 20 Blood Pressure 168/77 H 150/64 H Pulse Oximetry 94 L 94 L Intake & Output 07/26/18 07/27/18 07/27/18 18:59 06:59 18:59 Intake Total 740 / 740 Output Total 700 / 700 600 / 600 Balance 40 / 40 -600 / -600 Weight 84.2 kg Intake: Oral 740 / 740 Output: Urine 700 / 700 600 / 600 Other: Date of Last Bowel Movement 07/24/18 07/24/18 # Bowel Movements 0 - Routine HEENT Exam Head: Absent: atraumatic (right periorbital ecchymosis.) Eye: Present: PERRL - Routine Respiratory Exam Present: CTA bilaterally. Absent: respiratory distress, rhonchi, wheezes - Routine Cardiovascular Exam Present: RRR, S1, S2. Absent: murmur - Routine Abdominal Exam Present: soft, normoactive bowel sounds. Absent: distended - Routine Skin Exam Present: ecchymosis (right periorbital ecchymosis.). Absent: cyanosis, erythema - Routine Neurological Exam Present: alert, normal speech. Absent: moving all extremities (RUE in sling. She has movement in fingers.) - Routine Psychiatric Exam Present: normal affect. Absent: anxious, agitated - Urinary Catheter Management Straight Cath placed during this visit: no <Anderson Borges - Last Filed: 07/27/18 17:26> Vital signs: Vital Signs 07/26/18 20:00 07/26/18 21:48 07/27/18 00:00 Temperature 97.6 F Pulse Rate 51 L 60 47 L Respiratory Rate 21 Blood Pressure 130/89 Pulse Oximetry 92 L 07/27/18 03:18 07/27/18 04:00 07/27/18 08:00 Temperature 97.9 F 98.4 F Pulse Rate 44 L 52 L 51 L Respiratory Rate 18 20 Blood Pressure 119/70 198/81 H Pulse Oximetry 92 L 98 07/27/18 09:00 07/27/18 09:58 07/27/18 10:30 Temperature Pulse Rate 50 L Respiratory Rate Blood Pressure 176/74 H 142/70 H Pulse Oximetry 07/27/18 12:00 07/27/18 16:00 Temperature 98.2 F 98.8 F Pulse Rate 56 L 52 L Respiratory Rate 20 20 Blood Pressure 168/77 H 150/64 H Pulse Oximetry 94 L 94 L Intake & Output 07/26/18 07/27/18 07/27/18 18:59 06:59 18:59 Intake Total 740 / 740 Output Total 700 / 700 600 / 600 Balance 40 / 40 -600 / -600 Weight 84.2 kg Intake: Oral 740 / 740 Output: Urine 700 / 700 600 / 600 Other: # Voids 1 Date of Last Bowel Movement 07/24/18 07/24/18 # Bowel Movements 0 - Urinary Catheter Management Straight Cath placed during this visit: no <Edilberto Hernandez - Last Filed: 07/27/18 18:32> Assessment and Plan - Assessment (1) Concussion without loss of consciousness Code(s): S06.0X0A - Concussion without loss of consciousness, initial encounter Status: Acute Qualifiers: Encounter type: initial encounter Qualified Code(s): S06.0X0A - Concussion without loss of consciousness, initial encounter (2) Fracture, humerus closed Code(s): S42.309A - Unspecified fracture of shaft of humerus, unspecified arm, initial encounter for closed fracture Status: Acute Qualifiers: Encounter type: initial encounter Humerus Location: surgical neck Fracture morphology: unspecified fracture morphology Fracture alignment: displaced Laterality: right Qualified Code(s): S42.211A - Unspecified displaced fracture of surgical neck of right humerus, initial encounter for closed fracture (3) Warfarin-induced coagulopathy Code(s): D68.32 - Hemorrhagic disorder due to extrinsic circulating anticoagulants; T45.515A - Adverse effect of anticoagulants, initial encounter Status: Acute (4) Forehead laceration Code(s): S01.81XA - Laceration without foreign body of other part of head, initial encounter Status: Acute Qualifiers: Encounter type: initial encounter Qualified Code(s): S01.81XA - Laceration without foreign body of other part of head, initial encounter (5) Skin tear of elbow without complication Code(s): S51.019A - Laceration without foreign body of unspecified elbow, initial encounter Status: Acute Qualifiers: Encounter type: initial encounter Laterality: left Qualified Code(s): S51.012A - Laceration without foreign body of left elbow, initial encounter (6) Subdural hematoma, acute Code(s): S06.5X9A - Traumatic subdural hemorrhage with loss of consciousness of unspecified duration, initial encounter Status: Acute (7) Concussion with brief LOC Code(s): S06.0X9A - Concussion with loss of consciousness of unspecified duration, initial encounter Status: Acute (8) Atrial fibrillation Code(s): I48.91 - Unspecified atrial fibrillation Status: Chronic Qualifiers: Atrial fibrillation type: chronic Qualified Code(s): I48.2 - Chronic atrial fibrillation - Plan 73-year-old lady with a occipital interhemispheric subdural hemorrhage with slight enlargement since presentation without any associated neurologic symptoms. Her PT/INR was supratherapeutic on presentation and although improved received additional FFP and Vitamin K. P: Continue with blood pressure control Continue with neuro check. Cleared from Neurosurgical point of view. Continue with rehab efforts. Advance activity with assistance. Would not reanticoagulate without repeating scan first. Follow up in 2 weeks. <Anderson Borges - Last Filed: 07/27/18 17:26> - Assessment (1) Subdural hematoma, acute Code(s): S06.5X9A - Traumatic subdural hemorrhage with loss of consciousness of unspecified duration, initial encounter Status: Acute (2) Concussion with brief LOC Code(s): S06.0X9A - Concussion with loss of consciousness of unspecified duration, initial encounter Status: Acute (3) Fracture, humerus closed Code(s): S42.309A - Unspecified fracture of shaft of humerus, unspecified arm, initial encounter for closed fracture Status: Acute Qualifiers: Encounter type: initial encounter Humerus Location: surgical neck Fracture morphology: unspecified fracture morphology Fracture alignment: displaced Laterality: right Qualified Code(s): S42.211A - Unspecified displaced fracture of surgical neck of right humerus, initial encounter for closed fracture (4) Warfarin-induced coagulopathy Code(s): D68.32 - Hemorrhagic disorder due to extrinsic circulating anticoagulants; T45.515A - Adverse effect of anticoagulants, initial encounter Status: Acute (5) Atrial fibrillation Code(s): I48.91 - Unspecified atrial fibrillation Status: Chronic Qualifiers: Atrial fibrillation type: chronic Qualified Code(s): I48.2 - Chronic atrial fibrillation - Attending Attestation The exam, history, and the medical decision-making described in the above note were completed with the assistance of the mid-level provider. I reviewed and agree with the findings presented. I attest that I had a [id number] encounter with the patient on the same day, and personally performed and documented my assessment and findings in the medical record. <Edilberto Hernandez - Last Filed: 07/27/18 18:32>
[2018-07-28] MEDS: Insulin NovoLOG Aspart Correctional Sugar Inj SQ SCH ×2 (08:41→13:19)
[2018-07-28] MEDS: Lisinopril 5 MG Tablet PO SCH (08:41)
[2018-07-28] MEDS: Spironolactone 50 MG Tablet PO SCH (08:41)
[2018-07-28] MEDS: Sodium Chloride 0.9% 2 ML Flush BID IV.FLUSH SCH (08:42)
[2018-07-28] MEDS: amLODIPine 5 MG Tablet PO SCH (08:42)
[2018-07-28 09:07] VITALS: RESP 20
--- NOTE | 2018-07-28 10:45 | P.PN ---
Subjective Interval history: Follow-up coagulopathy/labile benign hypertension/ July 24, 2018-patient seen and examined, denies any headaches, visual changes. BP up. July 25, 2018-patient seen and examined, planes of right upper extremity pain. BP labile. No nausea no vomiting. No headaches. July 26, 2018-patient seen and examined, BP remains labile. Patient with not much of an appetite. Denies any right upper extremity pain. July 27, 2018-patient seen and examined, stable, no complaint, BP improved. State, she would like to be discharged to rehab facility now July 28, 2018-patient seen and examined, not much of an appetite. No BM times several days. BP improving Physical Exam Vital signs: Vital Signs 07/27/18 12:00 07/27/18 16:00 07/27/18 20:00 Temperature 98.2 F 98.8 F 98.1 F Pulse Rate 56 L 52 L 50 L Respiratory Rate 20 20 19 Blood Pressure 168/77 H 150/64 H 179/77 H Pulse Oximetry 94 L 94 L 94 L 07/28/18 00:00 07/28/18 04:00 07/28/18 08:00 Temperature 98.0 F 98.3 F 98.3 F Pulse Rate 48 L 50 L 56 L Respiratory Rate 21 16 20 Blood Pressure 108/69 187/14 H 155/62 H Pulse Oximetry 95 96 98 07/28/18 09:00 Temperature Pulse Rate 46 L Respiratory Rate Blood Pressure Pulse Oximetry Intake & Output 07/27/18 07/28/18 07/28/18 18:59 06:59 18:59 Intake Total 240 / 240 Output Total 400 / 400 Balance -400 / -400 240 / 240 Intake: Oral 240 / 240 Output: Urine Amount (Catheter) 400 / 400 Straight 400 / 400 Other: # Voids 1 Date of Last Bowel Movement 07/24/18 Narrative: GENERAL: NAD SKIN: Warm and dry. HEAD: Atraumatic. Normocephalic. EYES: Pupils equal and round. No scleral icterus. No injection or drainage. ENT: No nasal bleeding or discharge. Mucous membranes pink and moist. NECK: Trachea midline. No JVD. CARDIOVASCULAR: Regular rate and rhythm. RESPIRATORY: No accessory muscle use. Clear to auscultation. Breath sounds equal bilaterally. GASTROINTESTINAL: Abdomen soft, non-tender, nondistended. Hepatic and splenic margins not palpable. MUSCULOSKELETAL: Extremities without clubbing, cyanosis, or edema. No obvious deformities. RUE in sling-neurovascular intact NEUROLOGICAL: Awake and alert. No obvious cranial nerve deficits. Motor grossly within normal limits. Five out of 5 muscle strength in the arms and legs. PSYCHIATRIC: Appropriate mood and affect; insight and judgment normal. - Urinary Catheter Management Straight Cath placed during this visit: no Results - Labs CBC & Chem 7: 07/24/18 06:22 07/24/18 06:22 Laboratory Results - last 24 hr 07/27/18 07/27/18 07/27/18 12:00 17:24 20:49 POC Glucose 121 H 124 H 148 H 07/28/18 07:26 POC Glucose 125 H - Procedures None Assessment and Plan - Plan 73-year-old female with Coagulopathy/supratherapeutic INR: INR 6.0 upon arrival-Now resolved -S/p Vit K 2.5mg PO x 1 on admission. -continue to Hold Coumadin -given 3 units of FFP and vitamin K 7.5 total since admission -INR is 1.1 and trended down -Recommend patient/family have discussion with cardiology regarding continuing anticoagulation as patient is high risk for fall/injury Parafalx subdural hematoma posteriorly on the right side of 1.1 cm New focal acute parafalx subdural hematoma posteriorly on the right side measuring 1.1 cm in thickness. No evidence of any significant mass effect or midline shift. Continue physical therapy and blood pressure control per neurosurgery. No surgical intervention needed at this time. Right Proximal Humerus Fracture: acute, s/p fall -RUE X-ray reviewed, shows mildly comminuted fracture of the right humeral head and neck -R Shoulder CT shows Comminuted humeral neck fracture with mild angular deformity. No dislocation. -Continue sling -Orthopedics consulted, nonsurgical, outpatient f/up with ortho in 2 weeks -NWB RUE -PT/OT consulted, recommends rehab, case management to assist with placement Labile benign hypertension-improving Currently on Norvasc 5 mg daily and clonidine 0.2 mg p.o. Q12H Continue lisinopril 5 mg daily Decreased appetite Add Glucerna to current diet Acute Blood Loss Anemia: -given 2 u pRBC transfusion -H&H remained stable. Paroxysmal A. fib: chronic -EKG reviewed, shows afib with SVR -rate controlled Warfarin anticoagulation has been stopped. Patient to follow outpatient with clinical nurse occupational medicine for initiation of oral anticoagulation EDNA: suspect prerenal secondary to dehydration. Cr 1.19, previously 0.8 in Jun 2017 -Resolved -avoid all nephrotoxins -BUN/creatinine improved. Hypokalemiareplete Right Forehead/Temporal Laceration: secondary to fall -temporal laceration with previous significant bleeding which now has resolved. Other chronic medical conditions, stable -Continue outpatient medications DVT prophylaxis: Anticoagulation contraindicated secondary to subdural hematoma [employer] Prescription Drug Monitoring Database has been queried and verified prior to prescribing the controlled substance. Acute pain exception: This patient has normal, predicted, physiological, and time limited response to an adverse mechanical stimulus associated with surgery , trauma, or acute illness as described in my notes. There is a lack of alternative treatment options other than to include the prescribed narcotic treatment for this condition.
[2018-07-28 13:35] VITALS: BP 152/64; TEMP 97.9; O2SAT 97
[2018-07-28 13:51] VITALS: PULSE 48
== END 2018-07-28 13:42 ==
LOC: NEDA 10:41 → NEPC 10:41 → NEPFCDU 14:25 → N03 07-21 12:20 → N05 07-23 15:50
PROVIDERS: ADMIT Hospitalist; ATTEND Hospitalist

== ENCOUNTER 2018-08-14 16:42 | Observation (INO) ==
[2018-08-14] MEDS ORDERED: Acetaminophen 325 MG Tablet PO ONE (17:08)
--- NOTE | 2018-08-14 17:38 | XR ---
EXAM DATE: 08/14/2018 5:32 PM EST AGE/SEX: 73 years / Female INDICATIONS: Shortness of breath. CLINICAL DATA: This is the patient's initial encounter. Patient reports that signs and symptoms have been present for 2 days and indicates a pain score of 0/10. MEDICAL/SURGICAL HISTORY: None. CABG. COMPARISON: [facility], CHEST SINGLE AP, 09/14/2015. [facility], HUMERUS RIGHT MIN 2V, 07/18/2018. . FINDINGS: A single AP view of the chest demonstrates the lungs to be symmetrically aerated without evidence of mass, focal consolidation, or effusion. A sharply marginated triangular opacity at the medial aspect of the right lung apex is presumed to be artifactual. The cardiomediastinal contours are stable. Prio r sternotomy and CABG. Redemonstrated right proximal humerus fracture. CONCLUSION: 1. No focal consolidation. 2. Sharply marginated triangular opacity at the medial aspect of the right lung apex is presumed to be artifactual. 3. Redemonstrated right proximal humerus fracture. Electronically signed by: Katherin Flores MD 08/14/2018 5:36 PM EST
--- NOTE | 2018-08-14 17:41 | ED ---
HPI General Chief complaint: Fall Stated complaint: Fall,Evac Time Seen by Provider: 08/14/18 16:44 Source: EMS Mode of arrival: EMS Limitations: other (dementia) History of Present Illness HPI narrative: Patient is a 73-year-old female presenting to emergency department for evaluation of near syncopal episode. Patient was at home with her son who attempted to help her up when she gave out and slipped to the floor. EMS states that when they arrived patient was sitting on the tile floor. There was no head injury or loss of consciousness, patient denied any chest pain, shortness of breath prior to this episode. Patient was recently discharged from [facility], she was there due to a proximal humerus fracture that she sustained approximately 1 month ago. Patient presents complaining of pain to her sacrum and right arm. She does not quantify her pain. Related Data Home Medications Medication Instructions Recorded Confirmed aspirin [Aspirin Low Dose] 81 mg PO DAILY 07/18/18 08/14/18 cholecalciferol (vitamin D3) 2,000 unit PO DAILY 07/18/18 08/14/18 [Vitamin D3] donepezil 10 mg PO DAILY 07/18/18 08/14/18 lisinopril 5 mg PO DAILY 07/18/18 08/14/18 metformin 1,000 mg PO BID 07/18/18 08/14/18 multivitamin 1 tab PO DAILY 07/18/18 08/14/18 pravastatin 20 mg PO DAILY 07/18/18 08/14/18 spironolactone 50 mg PO DAILY 07/18/18 08/14/18 Previous Rx's Medication Instructions Recorded amlodipine [Norvasc] 5 mg PO DAILY #30 tab 07/27/18 clonidine HCl [Catapres] 0.2 mg PO Q12HR #60 tab 07/27/18 hydrocodone-acetaminophen [[place]] 1 tab PO Q4H #10 tab 07/27/18 insulin aspart U-100 [Novolog 0 unit SUBCUT ACHS ml 07/27/18 U-100 Insulin aspart] tramadol [Ultram] 50 mg PO Q4-6H PRN #10 tab 07/28/18 tramadol 50 mg PO Q4-6H PRN #10 tab 07/29/18 Allergies Allergy/AdvReac Type Severity Reaction Status Date / Time codeine Allergy Mild Rash Verified 07/18/18 11:48 penicillin G Allergy Mild Rash Verified 07/18/18 11:48 Sulfa (Sulfonamide Allergy Mild Rash Verified 07/18/18 11:48 Antibiotics) Review of Systems ROS: all other systems reviewed are negative [facility] Medical History Medical History Humeral fracture (Acute) Hyperlipidemia (Acute) ICH (intracerebral hemorrhage) (Acute) Atrial fibrillation (Chronic) Coronary artery disease (Chronic) Diabetes (Chronic) HTN (hypertension) (Chronic) Family History Family History Other No cardiac disease Social History Social History Substance History: No History of Abuse Second Hand Smoke Exposure: No Smoking Status: Never smoker How Often Do You Have a Drink Containing Alcohol: Monthly or less Recent Travel in [facility] within the Last 8 Weeks: No Recent Out of Country Travel within the Last 8 Weeks: No Immunization History Tetanus Immunization: Unsure Exam Narrative Exam Narrative: GENERAL: Well-developed, well-nourished, alert elderly female. Presenting in no acute distress. SKIN: Focused skin assessment warm/dry. 6 x 2cm decubitus ulceration to sacrum. HEAD: Atraumatic. Normocephalic. EYES: Pupils equal and round. No scleral icterus. No injection or drainage. ENT: No nasal bleeding or discharge. Mucous membranes pink and moist. NECK: Trachea midline. No JVD. CARDIOVASCULAR: Irregularly regular. No murmur appreciated. RESPIRATORY: No accessory muscle use. Clear to auscultation. Breath sounds equal bilaterally. GASTROINTESTINAL: Abdomen soft, non-tender, nondistended. Hepatic and splenic margins not palpable. MUSCULOSKELETAL: No obvious deformities. No clubbing. No cyanosis. No edema. NEUROLOGICAL: Awake and alert, oriented to self and place. No obvious cranial nerve deficits. Motor grossly within normal limits. Normal speech. PSYCHIATRIC: Appropriate mood and affect; insight and judgment normal. Course Initial Documented Vital Signs Pulse Rate 59 L 08/14/18 17:06 Respiratory Rate 18 08/14/18 17:06 Blood Pressure 234/102 H 08/14/18 17:06 Pulse Oximetry 98 08/14/18 17:06 Last Documented Vital Signs Temperature 97.5 F L 08/17/18 03:57 Pulse Rate 66 08/17/18 03:57 Respiratory Rate 17 08/17/18 03:57 Blood Pressure 178/75 H 08/17/18 03:57 Pulse Oximetry 97 08/17/18 03:57 Medical Decision Making LETA Attestation LETA supervised visit: Yes Attestation: I, Dr. Marinelli, have reviewed the advance practice practitioner' s documentation and am in agreement, met with the patient face to face, made the diagnosis, and the medical decision making was done by me. MDM Narrative Medical decision making narrative: Patient is a 73-year-old female presenting to emerge part for evaluation of a near syncopal episode. Labs and imaging ordered and pending. Wound culture will be obtained from sacral decubitus. Patient was hypertensive on arrival, she was given clonidine 0.1 mg p.o. x1 dose. She was also given acetaminophen for pain. Initial set of cardiac enzymes revealed a troponin of 0.07. CT scan the brain shows no acute findings, previous hemorrhage has resolved. Magnesium 1.3, magnesium 1 g IV ordered. UA consistent with UTI, pt started on Rocephin empirically. WBC 16 Pt was unsteady when we attempted to ambulate her. She remained bradycardic while on telemetry. discussed with my attending, pt will be admitted. Dr. Bautista accepted admit, orders placed for obs. Additionally pt's son called and stated that the fall was unwitnessed today. He reported that he was outside when she fell and he found her sitting on the floor. Medical Screen Exam Complete: Yes Emergency Medical Condition: Yes Differential Diagnosis Differential Diagnosis: Deconditioning versus metabolic abnormality versus UTI versus arrhythmia versus other Medical Records Medical records reviewed: Yes I reviewed the patient's medical records. Lab Data Result diagrams: 08/15/18 08:00 08/15/18 08:00 Lab Results 08/14/18 08/14/18 08/14/18 Range/Units 17:17 17:17 18:36 WBC 16.0 H (4.0-11.0) th/mm3 RBC 3.18 L (4.00-5.30) mil/mm3 Hgb 10.1 L (11.6-15.3) gm/dL Hct 28.7 L (35.0-46.0) % MCV 90.4 (80.0-100.0) fL MCH 31.8 (27.0-34.0) pg MCHC 35.2 (32.0-36.0) % RDW 14.7 (11.6-17.2) % Plt Count 382 D (150-450) th/mm3 MPV 9.1 (7.0-11.0) fL Neut % (Auto) 89.9 H (16.0-70.0) % Lymph % (Auto) 4.8 L (9.0-44.0) % Dillon % (Auto) 4.5 (0.0-8.0) % Eos % (Auto) 0.2 (0.0-4.0) % Baso % (Auto) 0.6 (0.0-2.0) % Neut # (Auto) 14.4 H (1.8-7.7) th/mm3 Lymph # (Auto) 0.8 L (1.0-4.8) th/mm3 Dillon # (Auto) 0.7 (0.0-0.9) th/mm3 Eos # (Auto) 0.0 (0.0-0.4) th/mm3 Baso # (Auto) 0.1 (0.0-0.2) th/mm3 WBC Differential . Differential Comment Auto diff final Sodium 137 (136-145) meq/L Potassium 4.2 (3.5-5.1) meq/L Chloride 99 (98-107) meq/L Carbon Dioxide 24.8 (21.0-32.0) meq/L Anion Gap 13 (5-15) meq/L BUN 19 H (7-18) mg/dL Creatinine 0.91 (0.50-1.00) mg/dL Estimated GFR 60 L (>89) mL/min POC Glucose (68-110) mg/dl Random Glucose 103 (74-106) mg/dL Calcium 8.8 (8.5-10.1) mg/dL Magnesium 1.3 L (1.5-2.5) mg/dL Total Bilirubin 0.9 (0.2-1.0) mg/dL AST 17 (15-37) U/L ALT 13 (10-53) U/L Alkaline Phosphatase 168 H (45-117) U/L Troponin I 0.07 H (0.02-0.05) ng/mL Total Protein 6.8 (6.4-8.2) g/dL Albumin 2.9 L (3.4-5.0) g/dL Urine Color Yellow (Yellw/Straw) Urine Clarity Cloudy H (Clear) Urine pH 5.0 (5.0-8.5) Ur Specific Gilbert 1.014 (1.002-1.035) Urine Protein 30 H (Neg-Trace) mg/dL Urine Glucose (UA) Negative (Negative) mg/dL Urine Ketones Trace H (Negative) mg/dL Urine Occult Blood Negative (Negative) Urine Nitrate Positive H (Negative) Urine Bilirubin Negative (Negative) Urine Urobilinogen Less than 2 (Less than 2) mg/dL Ur Leukocyte Esterase Large H (Negative) Urine WBC (0-5) /hpf Urine WBC Clumps Many H (None) Urine Bacteria Occasional H (None) /hpf Urine Mucus Few H (Occasional) /lpf Micro UA Comment Cath-culture ind Ur Microscopic Review Not Reportable Urine Culture Comments Cath-cult indicated 08/15/18 08/15/18 08/15/18 Range/Units 00:03 08:00 08:00 WBC 13.2 H (4.0-11.0) th/mm3 RBC 2.70 L (4.00-5.30) mil/mm3 Hgb 8.7 L (11.6-15.3) gm/dL Hct 24.2 L (35.0-46.0) % MCV 89.8 (80.0-100.0) fL MCH 32.1 (27.0-34.0) pg MCHC 35.8 (32.0-36.0) % RDW 14.9 (11.6-17.2) % Plt Count 293 (150-450) th/mm3 MPV 9.6 (7.0-11.0) fL Neut % (Auto) 85.3 H (16.0-70.0) % Lymph % (Auto) 7.3 L (9.0-44.0) % Dillon % (Auto) 6.4 (0.0-8.0) % Eos % (Auto) 0.5 (0.0-4.0) % Baso % (Auto) 0.5 (0.0-2.0) % Neut # (Auto) 11.3 H (1.8-7.7) th/mm3 Lymph # (Auto) 1.0 (1.0-4.8) th/mm3 Dillon # (Auto) 0.8 (0.0-0.9) th/mm3 Eos # (Auto) 0.1 (0.0-0.4) th/mm3 Baso # (Auto) 0.1 (0.0-0.2) th/mm3 WBC Differential . Differential Comment Auto diff final Sodium 139 (136-145) meq/L Potassium 4.1 (3.5-5.1) meq/L Chloride 105 (98-107) meq/L Carbon Dioxide 22.7 (21.0-32.0) meq/L Anion Gap 11 (5-15) meq/L BUN 16 (7-18) mg/dL Creatinine 0.64 (0.50-1.00) mg/dL Estimated GFR Greater than 89 (>89) mL/min POC Glucose (68-110) mg/dl Random Glucose 64 L (74-106) mg/dL Calcium 8.4 L (8.5-10.1) mg/dL Magnesium (1.5-2.5) mg/dL Total Bilirubin 0.6 (0.2-1.0) mg/dL AST 14 L (15-37) U/L ALT 11 (10-53) U/L Alkaline Phosphatase 131 H (45-117) U/L Troponin I 0.08 H (0.02-0.05) ng/mL Total Protein 5.6 L D (6.4-8.2) g/dL Albumin 2.2 L D (3.4-5.0) g/dL Urine Color (Yellw/Straw) Urine Clarity (Clear) Urine pH (5.0-8.5) Ur Specific Gilbert (1.002-1.035) Urine Protein (Neg-Trace) mg/dL Urine Glucose (UA) (Negative) mg/dL Urine Ketones (Negative) mg/dL Urine Occult Blood (Negative) Urine Nitrate (Negative) Urine Bilirubin (Negative) Urine Urobilinogen (Less than 2) mg/dL Ur Leukocyte Esterase (Negative) Urine WBC (0-5) /hpf Urine WBC Clumps (None) Urine Bacteria (None) /hpf Urine Mucus (Occasional) /lpf Micro UA Comment Ur Microscopic Review Urine Culture Comments 08/15/18 08/15/18 08/15/18 Range/Units 08:00 08:42 12:32 WBC (4.0-11.0) th/mm3 RBC (4.00-5.30) mil/mm3 Hgb (11.6-15.3) gm/dL Hct (35.0-46.0) % MCV (80.0-100.0) fL MCH (27.0-34.0) pg MCHC (32.0-36.0) % RDW (11.6-17.2) % Plt Count (150-450) th/mm3 MPV (7.0-11.0) fL Neut % (Auto) (16.0-70.0) % Lymph % (Auto) (9.0-44.0) % Dillon % (Auto) (0.0-8.0) % Eos % (Auto) (0.0-4.0) % Baso % (Auto) (0.0-2.0) % Neut # (Auto) (1.8-7.7) th/mm3 Lymph # (Auto) (1.0-4.8) th/mm3 Dillon # (Auto) (0.0-0.9) th/mm3 Eos # (Auto) (0.0-0.4) th/mm3 Baso # (Auto) (0.0-0.2) th/mm3 WBC Differential Differential Comment Sodium (136-145) meq/L Potassium (3.5-5.1) meq/L Chloride (98-107) meq/L Carbon Dioxide (21.0-32.0) meq/L Anion Gap (5-15) meq/L BUN (7-18) mg/dL Creatinine (0.50-1.00) mg/dL Estimated GFR (>89) mL/min POC Glucose 83 76 (68-110) mg/dl Random Glucose (74-106) mg/dL Calcium (8.5-10.1) mg/dL Magnesium (1.5-2.5) mg/dL Total Bilirubin (0.2-1.0) mg/dL AST (15-37) U/L ALT (10-53) U/L Alkaline Phosphatase (45-117) U/L Troponin I 0.06 H (0.02-0.05) ng/mL Total Protein (6.4-8.2) g/dL Albumin (3.4-5.0) g/dL Urine Color (Yellw/Straw) Urine Clarity (Clear) Urine pH (5.0-8.5) Ur Specific Gilbert (1.002-1.035) Urine Protein (Neg-Trace) mg/dL Urine Glucose (UA) (Negative) mg/dL Urine Ketones (Negative) mg/dL Urine Occult Blood (Negative) Urine Nitrate (Negative) Urine Bilirubin (Negative) Urine Urobilinogen (Less than 2) mg/dL Ur Leukocyte Esterase (Negative) Urine WBC (0-5) /hpf Urine WBC Clumps (None) Urine Bacteria (None) /hpf Urine Mucus (Occasional) /lpf Micro UA Comment Ur Microscopic Review Urine Culture Comments 08/15/18 08/15/18 08/16/18 Range/Units 18:47 21:41 08:03 WBC (4.0-11.0) th/mm3 RBC (4.00-5.30) mil/mm3 Hgb (11.6-15.3) gm/dL Hct (35.0-46.0) % MCV (80.0-100.0) fL MCH (27.0-34.0) pg MCHC (32.0-36.0) % RDW (11.6-17.2) % Plt Count (150-450) th/mm3 MPV (7.0-11.0) fL Neut % (Auto) (16.0-70.0) % Lymph % (Auto) (9.0-44.0) % Dillon % (Auto) (0.0-8.0) % Eos % (Auto) (0.0-4.0) % Baso % (Auto) (0.0-2.0) % Neut # (Auto) (1.8-7.7) th/mm3 Lymph # (Auto) (1.0-4.8) th/mm3 Dillon # (Auto) (0.0-0.9) th/mm3 Eos # (Auto) (0.0-0.4) th/mm3 Baso # (Auto) (0.0-0.2) th/mm3 WBC Differential Differential Comment Sodium (136-145) meq/L Potassium (3.5-5.1) meq/L Chloride (98-107) meq/L Carbon Dioxide (21.0-32.0) meq/L Anion Gap (5-15) meq/L BUN (7-18) mg/dL Creatinine (0.50-1.00) mg/dL Estimated GFR (>89) mL/min POC Glucose 63 L 80 59 L (68-110) mg/dl Random Glucose (74-106) mg/dL Calcium (8.5-10.1) mg/dL Magnesium (1.5-2.5) mg/dL Total Bilirubin (0.2-1.0) mg/dL AST (15-37) U/L ALT (10-53) U/L Alkaline Phosphatase (45-117) U/L Troponin I (0.02-0.05) ng/mL Total Protein (6.4-8.2) g/dL Albumin (3.4-5.0) g/dL Urine Color (Yellw/Straw) Urine Clarity (Clear) Urine pH (5.0-8.5) Ur Specific Gilbert (1.002-1.035) Urine Protein (Neg-Trace) mg/dL Urine Glucose (UA) (Negative) mg/dL Urine Ketones (Negative) mg/dL Urine Occult Blood (Negative) Urine Nitrate (Negative) Urine Bilirubin (Negative) Urine Urobilinogen (Less than 2) mg/dL Ur Leukocyte Esterase (Negative) Urine WBC (0-5) /hpf Urine WBC Clumps (None) Urine Bacteria (None) /hpf Urine Mucus (Occasional) /lpf Micro UA Comment Ur Microscopic Review Urine Culture Comments 08/16/18 08/16/18 08/16/18 Range/Units 08:40 12:32 17:05 WBC (4.0-11.0) th/mm3 RBC (4.00-5.30) mil/mm3 Hgb (11.6-15.3) gm/dL Hct (35.0-46.0) % MCV (80.0-100.0) fL MCH (27.0-34.0) pg MCHC (32.0-36.0) % RDW (11.6-17.2) % Plt Count (150-450) th/mm3 MPV (7.0-11.0) fL Neut % (Auto) (16.0-70.0) % Lymph % (Auto) (9.0-44.0) % Dillon % (Auto) (0.0-8.0) % Eos % (Auto) (0.0-4.0) % Baso % (Auto) (0.0-2.0) % Neut # (Auto) (1.8-7.7) th/mm3 Lymph # (Auto) (1.0-4.8) th/mm3 Dillon # (Auto) (0.0-0.9) th/mm3 Eos # (Auto) (0.0-0.4) th/mm3 Baso # (Auto) (0.0-0.2) th/mm3 WBC Differential Differential Comment Sodium (136-145) meq/L Potassium (3.5-5.1) meq/L Chloride (98-107) meq/L Carbon Dioxide (21.0-32.0) meq/L Anion Gap (5-15) meq/L BUN (7-18) mg/dL Creatinine (0.50-1.00) mg/dL Estimated GFR (>89) mL/min POC Glucose 110 95 68 (68-110) mg/dl Random Glucose (74-106) mg/dL Calcium (8.5-10.1) mg/dL Magnesium (1.5-2.5) mg/dL Total Bilirubin (0.2-1.0) mg/dL AST (15-37) U/L ALT (10-53) U/L Alkaline Phosphatase (45-117) U/L Troponin I (0.02-0.05) ng/mL Total Protein (6.4-8.2) g/dL Albumin (3.4-5.0) g/dL Urine Color (Yellw/Straw) Urine Clarity (Clear) Urine pH (5.0-8.5) Ur Specific Gilbert (1.002-1.035) Urine Protein (Neg-Trace) mg/dL Urine Glucose (UA) (Negative) mg/dL Urine Ketones (Negative) mg/dL Urine Occult Blood (Negative) Urine Nitrate (Negative) Urine Bilirubin (Negative) Urine Urobilinogen (Less than 2) mg/dL Ur Leukocyte Esterase (Negative) Urine WBC (0-5) /hpf Urine WBC Clumps (None) Urine Bacteria (None) /hpf Urine Mucus (Occasional) /lpf Micro UA Comment Ur Microscopic Review Urine Culture Comments 08/16/18 Range/Units 21:05 WBC (4.0-11.0) th/mm3 RBC (4.00-5.30) mil/mm3 Hgb (11.6-15.3) gm/dL Hct (35.0-46.0) % MCV (80.0-100.0) fL MCH (27.0-34.0) pg MCHC (32.0-36.0) % RDW (11.6-17.2) % Plt Count (150-450) th/mm3 MPV (7.0-11.0) fL Neut % (Auto) (16.0-70.0) % Lymph % (Auto) (9.0-44.0) % Dillon % (Auto) (0.0-8.0) % Eos % (Auto) (0.0-4.0) % Baso % (Auto) (0.0-2.0) % Neut # (Auto) (1.8-7.7) th/mm3 Lymph # (Auto) (1.0-4.8) th/mm3 Dillon # (Auto) (0.0-0.9) th/mm3 Eos # (Auto) (0.0-0.4) th/mm3 Baso # (Auto) (0.0-0.2) th/mm3 WBC Differential Differential Comment Sodium (136-145) meq/L Potassium (3.5-5.1) meq/L Chloride (98-107) meq/L Carbon Dioxide (21.0-32.0) meq/L Anion Gap (5-15) meq/L BUN (7-18) mg/dL Creatinine (0.50-1.00) mg/dL Estimated GFR (>89) mL/min POC Glucose 73 (68-110) mg/dl Random Glucose (74-106) mg/dL Calcium (8.5-10.1) mg/dL Magnesium (1.5-2.5) mg/dL Total Bilirubin (0.2-1.0) mg/dL AST (15-37) U/L ALT (10-53) U/L Alkaline Phosphatase (45-117) U/L Troponin I (0.02-0.05) ng/mL Total Protein (6.4-8.2) g/dL Albumin (3.4-5.0) g/dL Urine Color (Yellw/Straw) Urine Clarity (Clear) Urine pH (5.0-8.5) Ur Specific Gilbert (1.002-1.035) Urine Protein (Neg-Trace) mg/dL Urine Glucose (UA) (Negative) mg/dL Urine Ketones (Negative) mg/dL Urine Occult Blood (Negative) Urine Nitrate (Negative) Urine Bilirubin (Negative) Urine Urobilinogen (Less than 2) mg/dL Ur Leukocyte Esterase (Negative) Urine WBC (0-5) /hpf Urine WBC Clumps (None) Urine Bacteria (None) /hpf Urine Mucus (Occasional) /lpf Micro UA Comment Ur Microscopic Review Urine Culture Comments Imaging Data Radiologist's impression: Chest X-Ray 08/14/18 17:07 CONCLUSION: 1. No focal consolidation. 2. Sharply marginated triangular opacity at the medial aspect of the right lung apex is presumed to be artifactual. 3. Redemonstrated right proximal humerus fracture. Head CT 08/14/18 17:12 CONCLUSION: 1. No acute findings in the brain. 2. Stable ischemic atrophy. . Sacrum and Coccyx X-Ray 08/14/18 17:12 CONCLUSION: Osteoporotic without displaced fracture. Degree of osteopenia makes detection of nondisplaced fractures difficult. ECG Data EKG Prior to Arrival: No Attestation: I personally reviewed and interpreted this ECG as follows: (Afib with slow ventricular response, rate of 43. RBBB. Consistent with prior EKG) Prior ECG tracings: available for review Discharge Plan Discharge Disposition Patient Disposition: 30 Still Patient Discharge Condition Condition: Stable Discharge Details Diagnosis: Syncope, Acute UTI, Symptomatic bradycardia, Elevated troponin Physicians Team ED Provider: Aldo Marinelli ED Midlevel Provider: Cherelle Joseph Primary Care Provider: George Zuñiga Attending Provider: Kofi Posey Other Providers: Tavo Kohler ; Glenn Herrera ; [employer] Status ED Status: Left Department Discharge Information Discharge Date/Time: 08/14/18 20:40
--- NOTE | 2018-08-14 17:55 | XR ---
EXAM DATE: 08/14/2018 5:53 PM EST AGE/SEX: 73 years / Female INDICATIONS: Lower back pain, fall. CLINICAL DATA: This is the patient's initial encounter. Patient reports that signs and symptoms have been present for 1 day and indicates a pain score of 10/10. MEDICAL/SURGICAL HISTORY: None. None. COMPARISON: No prior exams available for comparison. FINDINGS: Bones are osteoporotic. Two-view examination of the sacrum and coccyx demonstrates no evidence of fra cture or malalignment. The sacral ala and foramina appear symmetric and intact. The coccyx appears unremarkable. The prevertebral soft tissues are within normal limits. Degenerative changes lower lumbar spine CONCLUSION: Osteoporotic without displaced fracture. Degree of osteopenia makes detection of nondisplaced fractur es difficult. Electronically signed by: Charles Louis MD 08/14/2018 5:54 PM EST
[2018-08-14 18:00] LABS: Baso # (Auto) 0.1 th/mm3 (0.0-0.2); Baso % (Auto) 0.6 % (0.0-2.0); Eos % (Auto) 0.2 % (0.0-4.0); Hematocrit 28.7 % (35.0-46.0); Hemoglobin 10.1 gm/dL (11.6-15.3); Lymph # (Auto) 0.8 th/mm3 (1.0-4.8); Lymph % (Auto) 4.8 % (9.0-44.0); Mean Corpuscular HGB Conc 35.2 % (32.0-36.0); Mean Corpuscular Hemoglobin 31.8 pg (27.0-34.0); Mean Corpuscular Volume 90.4 fL (80.0-100.0); Mean Platelet Volume 9.1 fL (7.0-11.0); Mono # (Auto) 0.7 th/mm3 (0.0-0.9); Mono % (Auto) 4.5 % (0.0-8.0); Neut # (Auto) 14.4 th/mm3 (1.8-7.7); Neut % (Auto) 89.9 % (16.0-70.0); Platelet Count 382 th/mm3 (150-450); Red Blood Count 3.18 mil/mm3 (4.00-5.30); Red Cell Distribution Width 14.7 % (11.6-17.2)
[2018-08-14 18:14] LABS: Albumin 2.9 g/dL (3.4-5.0); Anion Gap 13 meq/L (5-15); Aspartate Aminotransferase 17 U/L (15-37); Blood Urea Nitrogen 19 mg/dL (7-18); Calcium 8.8 mg/dL (8.5-10.1); Carbon Dioxide 24.8 meq/L (21.0-32.0); Chloride 99 meq/L (98-107); Glomerular Filtration Rate 60 mL/min (>89); Glucose,Random 103 mg/dL (74-106); Magnesium 1.3 mg/dL (1.5-2.5); Potassium 4.2 meq/L (3.5-5.1); Sodium 137 meq/L (136-145)
[2018-08-14 18:15] LABS: Alanine Aminotransferase 13 U/L (10-53)
[2018-08-14 18:19] LABS: Alkaline Phosphatase 168 U/L (45-117); Total Protein 6.8 g/dL (6.4-8.2); Troponin I 0.07 ng/mL (0.02-0.05)
[2018-08-14] MEDS ORDERED: Mag Sulf 1 gm/100 ml Premix 100 ML IV.SIG ONE (18:23)
--- NOTE | 2018-08-14 18:36 | CT ---
EXAM DATE: 08/14/2018 6:32 PM EST AGE/SEX: 73 years / Female INDICATIONS: Fall, Dizziness CLINICAL DATA: This is the patient's initial encounter. Patient reports that signs and symptoms have been present for 1 day and indicates a pain score of 4/10. MEDICAL/SURGICAL HISTORY: Diabetes. Hypertension. Coronary Artery Disease, Subdural Hemartoma, Atr ial Fibrillation None. RADIATION DOSE: 66.38 CTDI (mGy) COMPARISON: [facility] [place], CT HEAD W/O CONTRAST, 07/20/2018. . TECHNIQUE: CT of the head without contrast. Using automated exposure control and adjustment of the mA and/or kV according to patient size, radiation dose was kept as low as reasonably achievable to ob tain optimal diagnostic quality images. DICOM format image data is available electronically for revi ew and comparison. FINDINGS: Cerebrum: The ventricles are prominent, stable from prior.. No evidence of midline shift, mass lesi on, hemorrhage or acute infarction. No extraaxial fluid collections are seen. Previously noted paraf alcine subdural hematoma has resolved. Posterior Fossa: The cerebellum and brainstem are intact. The 4th ventricle is midline. The cerebe llopontine angle is unremarkable. Extracranial: The visualized portion of the orbits is intact. Skull: The calvaria is intact. No evidence of skull fracture. CONCLUSION: 1. No acute findings in the brain. 2. Stable ischemic atrophy. . Electronically signed by: Neri Uribe MD 08/14/2018 6:35 PM EST
[2018-08-14 19:08] LABS: Bacteria,Urine Occasional /hpf; Bilirubin,Urine Negative (Negative); Clarity,Urine Cloudy (Clear); Color,Urine Yellow (Yellw/Straw); Glucose,Urine (UA) Negative (Negative); Leukocyte Esterase,Urine Large (Negative); Mucus,Urine Few /lpf (Occasional); Nitrite,Urine Positive (Negative); Specific Gravity,Urine 1.014 (1.002-1.035)
[2018-08-14] MEDS ORDERED: Acetaminophen 325 MG Tablet PO PRN (19:49)
[2018-08-14] MEDS ORDERED: Bisacodyl 10 MG Supp RECTAL PRN (19:49)
--- NOTE | 2018-08-14 19:51 | P.HPIM ---
History of Present Illness Primary Care Physician: George Zuñiga MD History of Present Illness: This is a 73-year-old female with a PMH of HTN, A. fib, Dementia, h/o ICH, H/o Prox Humerus Fx and DM who was brought to the ER by EMS after suspected syncopal event. Pt is poor historian, unable to obtain accurate history but she tells me she had fall today, she is unsure if she had LOC. Per EMS report, pt at home w/ son who found her sitting on tile floor. Pt denies complaints at this time except feeling tired. Recent admit 07/18-07/27/18 for fall w/ right prox humerus fx, s/p eval by Ortho, non-op w/ plans for outpatient follow up, was sent to [facility] and recently discharged home. On arrival, BP 234/102, HR 59, O2 sat 98% on RA. WBC 16. Chemistry unremarkable. Troponin 0 0.07. UA positive for UTI. CXR with no consolidation, right proximal humerus fracture. CT Head no acute findings. Sacrum X-ray osteoporotic without displaced fracture. While in ER, pt w/ HR 40's, s/p Clonidine in ER for hypertension. - Diagnosis (1) Syncope (2) Symptomatic bradycardia (3) UTI (urinary tract infection) (4) DM (diabetes mellitus) (5) Elevated troponin (6) HTN (hypertension) Review of Systems PAST FAMILY HISTORY: Reviewed. No h/o DM or CAD All other systems reviewed negative except as stated in HPI [facility] - History History Provided By: Patient - Medical History Medical History: Medical History (Last Reviewed 08/14/18 @ 17:39 by DAJA Sheridan) Humeral fracture Hyperlipidemia ICH (intracerebral hemorrhage) Atrial fibrillation Coronary artery disease Diabetes HTN (hypertension) - Family History Family History: Family History (Last Reviewed 08/14/18 @ 17:39 by DAJA Sheridan) Other No cardiac disease - Tobacco History Second Hand Smoke Exposure: No Tobacco Use In Past 30 Days: No Smoking Status: Never smoker - Alcohol History How Often Do You Have a Drink Containing Alcohol: Never - Substance Use History Substance History: No History of Abuse - Travel History Recent Travel in the [place] Within the Last 8 Weeks: No Recent Travel Out of the Country Within the Last 8 Weeks: No - Immunization History Tetanus Immunization: Unsure Medications and Allergies Allergies Allergy/AdvReac Type Severity Reaction Status Date / Time codeine Allergy Mild Rash Verified 07/18/18 11:48 penicillin G Allergy Mild Rash Verified 07/18/18 11:48 Sulfa (Sulfonamide Allergy Mild Rash Verified 07/18/18 11:48 Antibiotics) Home Medications Medication Instructions Recorded Confirmed Type aspirin [Aspirin Low Dose] 81 mg PO DAILY 07/18/18 08/14/18 History cholecalciferol (vitamin D3) 2,000 unit PO DAILY 07/18/18 08/14/18 History [Vitamin D3] donepezil 10 mg PO DAILY 07/18/18 08/14/18 History lisinopril 5 mg PO DAILY 07/18/18 08/14/18 History metformin 1,000 mg PO BID 07/18/18 08/14/18 History multivitamin 1 tab PO DAILY 07/18/18 08/14/18 History pravastatin 20 mg PO DAILY 07/18/18 08/14/18 History spironolactone 50 mg PO DAILY 07/18/18 08/14/18 History Exam Vital signs: Vital Signs 08/14/18 17:06 08/14/18 18:16 08/14/18 18:59 Pulse Rate 59 L 59 L 46 L Respiratory Rate 18 18 16 Blood Pressure 234/102 H 195/80 H 172/81 H Pulse Oximetry 98 97 97 08/14/18 19:11 Pulse Rate 48 L Respiratory Rate 16 Blood Pressure 148/65 H Pulse Oximetry 98 Intake & Output 08/14/18 08/14/18 08/15/18 06:59 18:59 06:59 Weight 140 kg Narrative: PE: GENERAL: Pleasant elderly white female in no acute distress, appears weak/tired. SKIN: Focused skin assessment warm and dry. HEENT: PERRLA, EOMI. No scleral icterus or conjunctival pallor. No lid lag or facial droop. CARDIOVASCULAR: Regular rate and rhythm. No obvious murmurs to auscultation. No chest tenderness to palpation. RESPIRATORY: No obvious rhonchi or wheezing. Clear to auscultation. Breath sounds equal bilaterally. GASTROINTESTINAL: Abdomen soft, non-tender, nondistended. BS normal. MUSCULOSKELETAL: Extremities without clubbing, cyanosis, or edema. No obvious deformities. NEUROLOGICAL: Awake, alert and oriented to person/place. No focal neurologic deficits. Moving both upper and lower extremities spontaneously. PSYCHIATRIC: Appropriate mood and affect. Insight and judgment normal. Results - Labs CBC & Chem 7: 08/14/18 17:17 08/14/18 17:17 Labs: Short CBC 08/14/18 Range/Units 17:17 WBC 16.0 H (4.0-11.0) th/mm3 Hgb 10.1 L (11.6-15.3) gm/dL Hct 28.7 L (35.0-46.0) % Plt Count 382 D (150-450) th/mm3 BMP 08/14/18 17:17 Sodium 137 Potassium 4.2 Chloride 99 Carbon Dioxide 24.8 BUN 19 H Creatinine 0.91 Calcium 8.8 Cardiac Enzymes 08/14/18 Range/Units 17:17 Troponin I 0.07 H (0.02-0.05) ng/mL Liver Function 08/14/18 Range/Units 17:17 Total Bilirubin 0.9 (0.2-1.0) mg/dL AST 17 (15-37) U/L ALT 13 (10-53) U/L Alkaline Phosphatase 168 H (45-117) U/L Albumin 2.9 L (3.4-5.0) g/dL Urine 08/14/18 Range/Units 18:36 Urine Color Yellow (Yellw/Straw) Urine Clarity Cloudy H (Clear) Urine pH 5.0 (5.0-8.5) Ur Specific [place] 1.014 (1.002-1.035) Urine Protein 30 H (Neg-Trace) mg/dL Urine Glucose (UA) Negative (Negative) mg/dL - Imaging Impressions Chest X-Ray 08/14/18 17:07 CONCLUSION: 1. No focal consolidation. 2. Sharply marginated triangular opacity at the medial aspect of the right lung apex is presumed to be artifactual. 3. Redemonstrated right proximal humerus fracture. Head CT 08/14/18 17:12 CONCLUSION: 1. No acute findings in the brain. 2. Stable ischemic atrophy. . Sacrum and Coccyx X-Ray 08/14/18 17:12 CONCLUSION: Osteoporotic without displaced fracture. Degree of osteopenia makes detection of nondisplaced fractures difficult. Caprini VTE Risk Assessment Caprini VTE Risk Assessment: No/Low Risk (score <= 1) Caprini Risk Assessment Model: Point Value = 1 Point Value = 2 Point Value = 3 Point Value = 5 Age 41-60 Minor surgery BMI > 25 kg/m2 Swollen legs Varicose veins or History of unexplained or recurrent spontaneous Oral contraceptives or hormone replacement Sepsis (< 1 month) Serious lung disease, including pneumonia (< 1 month) Abnormal pulmonary function Acute myocardial infarction Congestive heart failure (< 1 month) History of inflammatory bowel disease Medical patient at bed rest Age 61-74 Arthroscopic surgery Major open surgery (> 45 min) Laparoscopic surgery (> 45 min) Malignancy Confined to bed (> 72 hours) Immobilizing plaster cast Central venous access Age >= 75 History of VTE Family history of VTE Factor V Leiden Prothrombin [id number] Lupus anticoagulant Anticardiolipin antibodies Elevated serum homocysteine Heparin-induced thrombocytopenia Other congenital or acquired thrombophilia Stroke (< 1 month) Elective arthroplasty Hip, pelvis, or leg fracture Acute spinal cord injury (< 1 month) Prophylaxis Regimen: Total Risk Factor Score Risk Level Prophylaxis Regimen 0-1 Low Early ambulation 2 Moderate Order ONE of the following: *Sequential Compression Device (SCD) *Heparin 5000 units SQ BID 3-4 Higher Order ONE of the following medications: *Heparin 5000 units SQ TID *Enoxaparin/Lovenox 40 mg SQ daily (WT < 150 kg, CrCl > 30 mL/min) *Enoxaparin/Lovenox 30 mg SQ daily (WT < 150 kg, CrCl > 10-29 mL/min) *Enoxaparin/Lovenox 30 mg SQ BID (WT < 150 kg, CrCl > 30 mL/min) AND/OR *Sequential Compression Device (SCD) 5 or more Highest Order ONE of the following medications: *Heparin 5000 units SQ TID (Preferred with Epidurals) *Enoxaparin/Lovenox 40 mg SQ daily (WT < 150 kg, CrCl > 30 mL/min) *Enoxaparin/Lovenox 30 mg SQ daily (WT < 150 kg, CrCl > 10-29 mL/min) *Enoxaparin/Lovenox 30 mg SQ BID (WT < 150 kg, CrCl > 30 mL/min) AND *Sequential Compression Device (SCD) Assessment and Plan - Assessment (1) Syncope Code(s): R55 - Syncope and collapse Status: Acute (2) Symptomatic bradycardia Code(s): R00.1 - Bradycardia, unspecified Status: Acute (3) UTI (urinary tract infection) Code(s): N39.0 - Urinary tract infection, site not specified Status: Acute (4) DM (diabetes mellitus) Code(s): E11.9 - Type 2 diabetes mellitus without complications Status: Acute (5) Elevated troponin Code(s): R74.8 - Abnormal levels of other serum enzymes Status: Acute (6) HTN (hypertension) Code(s): I10 - Essential (primary) hypertension Status: Acute - Plan A/P: 1. Syncope: suspected syncopal event, pt w/ unwitnessed fall, recent admit -07/27 for similar fall w/ prox humerus fx and d/c'd home from [facility]. CT Head w/ no acute findings, images reviewed. Will admit for Observation, PT for eval/tx, Case Management for possible placement. 2. Bradycardia: Symptomatic. HR 40's while in ER, s/p Clonidine in ER for BP , will avoid Clonidine or B-Sebastian in light of bradycardia. Echo 09/15/15 w/ EF 45-50%, will obtain repeat Echo to eval for valvular abnormalities/worsening cardiomyopathy. Consult Cardiology for further eval/recommendations. 3. Elevated Trop: Trop 0.07, no c/o chest pain, no acute EKG changes, possibly due to uncontrolled HTN, BP 230's on arrival, will place on telemetry, check serial cardiac enzymes to eval for acute ischemia. 4. UTI: U/a w/ UTI, start Rocephin IV, follow up cultures, continue w/ IVF- caution w/ h/o CHF, monitor I/O. 5. DM: Sliding scale w/ Accu-Cheks, hold Metformin for now 6. DVT Prophylaxis: SCD/Teds 7. Social work for d/c planning as needed. 8. Case discussed w/ ER physician at length, labs/records/imaging reviewed by me. (1) Syncope Qualifiers: Syncope type: unspecified Qualified Code(s): R55 - Syncope and collapse
[2018-08-14] MEDS: Sod Chloride 0.9% Inj 1,000 ML IV.CONT SCH (20:10)
[2018-08-14] MEDS: Senna/Docusate Sodium 8.6/50 MG Tablet PO SCH (21:36)
[2018-08-14] MEDS ORDERED: Dextrose 50% in Water 50 ML Vial IV.PUSH PRN (22:05)
--- NOTE | 2018-08-14 22:09 | P.PN ---
Subjective Interval history: NOT seen Physical Exam Vital signs: Vital Signs 08/14/18 17:06 08/14/18 18:16 08/14/18 18:59 Pulse Rate 59 L 59 L 46 L Respiratory Rate 18 18 16 Blood Pressure 234/102 H 195/80 H 172/81 H Pulse Oximetry 98 97 97 08/14/18 19:11 08/14/18 20:30 Pulse Rate 48 L 44 L Respiratory Rate 16 18 Blood Pressure 148/65 H 146/65 H Pulse Oximetry 98 97 Intake & Output 08/14/18 08/14/18 08/15/18 06:59 18:59 06:59 Intake Total 200 / 200 Balance 200 / 200 Weight 140 kg Intake: IV 200 / 200 NS Inj 1,000 ML @ 100 mls/hr IV 0 / 0 .CONT .Q10H [facility] Rx#:[id number] Magnesium Sulfate 1 gm/D5W 100 100 / 100 ml Premix 100 ML @ 100 mls/hr IV.SIG ONCE ONE Rx#:[id number] Rocephin Inj 1,000 MG In NS Inj 100 / 100 100 ML @ 200 mls/hr IV.SIG Q24H [facility] Rx#:[id number] Narrative: GENERAL: Pleasant elderly white female in no acute distress, appears weak/tired. SKIN: Focused skin assessment warm and dry. CARDIOVASCULAR: Regular rate and rhythm. No obvious murmurs to auscultation. No chest tenderness to palpation. RESPIRATORY: No obvious rhonchi or wheezing. Clear to auscultation. Breath sounds equal bilaterally. GASTROINTESTINAL: Abdomen soft, non-tender, nondistended. BS normal. MUSCULOSKELETAL: Extremities without clubbing, cyanosis, or edema. No obvious deformities. NEUROLOGICAL: Awake, alert and oriented to person/place. No focal neurologic deficits. Moving both upper and lower extremities spontaneously. PSYCHIATRIC: Appropriate mood and affect. Insight and judgment normal. Results - Labs CBC & Chem 7: 08/14/18 17:17 08/14/18 17:17 Laboratory Results - last 24 hr 08/14/18 08/14/18 08/14/18 17:17 17:17 18:36 WBC 16.0 H RBC 3.18 L Hgb 10.1 L Hct 28.7 L MCV 90.4 MCH 31.8 MCHC 35.2 RDW 14.7 Plt Count 382 D MPV 9.1 Neut % (Auto) 89.9 H Lymph % (Auto) 4.8 L [place] % (Auto) 4.5 Eos % (Auto) 0.2 Baso % (Auto) 0.6 Neut # (Auto) 14.4 H Lymph # (Auto) 0.8 L [place] # (Auto) 0.7 Eos # (Auto) 0.0 Baso # (Auto) 0.1 WBC Differential . Differential Comment Auto diff final Sodium 137 Potassium 4.2 Chloride 99 Carbon Dioxide 24.8 Anion Gap 13 BUN 19 H Creatinine 0.91 Estimated GFR 60 L Random Glucose 103 Calcium 8.8 Magnesium 1.3 L Total Bilirubin 0.9 AST 17 ALT 13 Alkaline Phosphatase 168 H Troponin I 0.07 H Total Protein 6.8 Albumin 2.9 L Urine Color Yellow Urine Clarity Cloudy H Urine pH 5.0 Ur Specific [place] 1.014 Urine Protein 30 H Urine Glucose (UA) Negative Urine Ketones Trace H Urine Occult Blood Negative Urine Nitrate Positive H Urine Bilirubin Negative Urine Urobilinogen Less than 2 Ur Leukocyte Esterase Large H Urine WBC Urine WBC Clumps Many H Urine Bacteria Occasional H Urine Mucus Few H Micro UA Comment Cath-culture ind Ur Microscopic Review Not Reportable Urine Culture Comments Cath-cult indicated - Imaging Impressions Chest X-Ray 08/14/18 17:07 CONCLUSION: 1. No focal consolidation. 2. Sharply marginated triangular opacity at the medial aspect of the right lung apex is presumed to be artifactual. 3. Redemonstrated right proximal humerus fracture. Head CT 08/14/18 17:12 CONCLUSION: 1. No acute findings in the brain. 2. Stable ischemic atrophy. . Sacrum and Coccyx X-Ray 08/14/18 17:12 CONCLUSION: Osteoporotic without displaced fracture. Degree of osteopenia makes detection of nondisplaced fractures difficult. - Procedures none Assessment and Plan - Assessment (1) Syncope Code(s): R55 - Syncope and collapse Status: Acute (2) Symptomatic bradycardia Code(s): R00.1 - Bradycardia, unspecified Status: Acute (3) UTI (urinary tract infection) Code(s): N39.0 - Urinary tract infection, site not specified Status: Acute (4) DM (diabetes mellitus) Code(s): E11.9 - Type 2 diabetes mellitus without complications Status: Acute (5) Elevated troponin Code(s): R74.8 - Abnormal levels of other serum enzymes Status: Acute (6) HTN (hypertension) Code(s): I10 - Essential (primary) hypertension Status: Acute - Plan 1. Syncope: suspected syncopal event, pt w/ unwitnessed fall, recent admit -07/27 for similar fall w/ prox humerus fx and d/c'd home from [facility]. CT Head w/ no acute findings, images reviewed. Will admit for Observation, PT for eval/tx, Case Management for possible placement. 2. Bradycardia: Symptomatic. HR 40's while in ER, s/p Clonidine in ER for BP , will avoid Clonidine or B-Sebastian in light of bradycardia. Echo 09/15/15 w/ EF 45-50%, will obtain repeat Echo to eval for valvular abnormalities/worsening cardiomyopathy. Consult Cardiology for further eval/recommendations. 3. Elevated Trop: Trop 0.07, no c/o chest pain, no acute EKG changes, possibly due to uncontrolled HTN, BP 230's on arrival, will place on telemetry, check serial cardiac enzymes to eval for acute ischemia. 4. UTI: U/a w/ UTI, start Rocephin IV, follow up cultures, continue w/ IVF- caution w/ h/o CHF, monitor I/O. 5. DM: Sliding scale w/ Accu-Cheks, hold Metformin for now 6. DVT Prophylaxis: SCD/Teds (1) Syncope Qualifiers: Syncope type: unspecified Qualified Code(s): R55 - Syncope and collapse
[2018-08-15] MEDS: Sod Chloride 0.9% Inj 1,000 ML IV.CONT SCH (06:05)
[2018-08-15] MEDS ORDERED: amLODIPine 5 MG Tablet PO SCH (09:00)
[2018-08-15] MEDS: Insulin NovoLOG Aspart Correctional Sugar Inj SQ SCH ×4 (09:06→21:44)
[2018-08-15] MEDS: Senna/Docusate Sodium 8.6/50 MG Tablet PO SCH ×2 (09:08→21:44)
[2018-08-15] MEDS: Sodium Chloride 0.9% 2 ML Flush BID IV.FLUSH SCH ×2 (09:08→21:44)
[2018-08-15 09:20] LABS: Baso # (Auto) 0.1 th/mm3 (0.0-0.2); Baso % (Auto) 0.5 % (0.0-2.0); Eos # (Auto) 0.1 th/mm3 (0.0-0.4); Eos % (Auto) 0.5 % (0.0-4.0); Hematocrit 24.2 % (35.0-46.0); Hemoglobin 8.7 gm/dL (11.6-15.3); Lymph % (Auto) 7.3 % (9.0-44.0); Mean Corpuscular HGB Conc 35.8 % (32.0-36.0); Mean Corpuscular Hemoglobin 32.1 pg (27.0-34.0); Mean Corpuscular Volume 89.8 fL (80.0-100.0); Mean Platelet Volume 9.6 fL (7.0-11.0); Mono # (Auto) 0.8 th/mm3 (0.0-0.9); Mono % (Auto) 6.4 % (0.0-8.0); Neut # (Auto) 11.3 th/mm3 (1.8-7.7); Neut % (Auto) 85.3 % (16.0-70.0); Platelet Count 293 th/mm3 (150-450); Red Cell Distribution Width 14.9 % (11.6-17.2); White Blood Count 13.2 th/mm3 (4.0-11.0)
--- NOTE | 2018-08-15 09:45 | P.PNOP ---
Subjective Interval history: painful R shoulder. Poor historian. Physical Exam Vital signs: Vital Signs 08/14/18 17:06 08/14/18 18:16 08/14/18 18:59 Temperature Pulse Rate 59 L 59 L 46 L Respiratory Rate 18 18 16 Blood Pressure 234/102 H 195/80 H 172/81 H Pulse Oximetry 98 97 97 08/14/18 19:11 08/14/18 20:30 08/15/18 00:00 Temperature 97.6 F Pulse Rate 48 L 44 L 47 L Respiratory Rate 16 18 16 Blood Pressure 148/65 H 146/65 H 179/79 H Pulse Oximetry 98 97 97 08/15/18 03:32 08/15/18 08:00 Temperature 97.6 F 98.1 F Pulse Rate 44 L 42 L Respiratory Rate 16 18 Blood Pressure 165/72 H 210/112 H Pulse Oximetry 96 97 Intake & Output 08/14/18 08/15/18 08/15/18 18:59 06:59 18:59 Intake Total 1234 / 1234 Output Total 150 / 150 150 / 150 Balance 1084 / 1084 -150 / -150 Weight 140 kg 140 kg Intake: IV 1114 / 1114 NS Inj 1,000 ML @ 80 mls/hr IV. 914 / 914 CONT .[id number] [facility] Rx#:[id number] Magnesium Sulfate 1 gm/D5W 100 100 / 100 ml Premix 100 ML @ 100 mls/hr IV.SIG ONCE ONE Rx#:[id number] Rocephin Inj 1,000 MG In NS Inj 100 / 100 100 ML @ 200 mls/hr IV.SIG Q24H [facility] Rx#:[id number] Oral 120 / 120 Output: Urine 150 / 150 Urine Amount (Catheter) 150 / 150 Female External 150 / 150 Other: Weight On Admission 140 kg Narrative: in ER room RUE skin intact, mild ecchymosis and swelling, nvi, ROM not tested due to fracture - Urinary Catheter Management Female External Cath placed during this visit: no Results - Labs CBC & Chem 7: 08/15/18 08:00 08/14/18 17:17 Laboratory Results - last 24 hr 08/14/18 08/14/18 08/14/18 17:17 17:17 18:36 WBC 16.0 H RBC 3.18 L Hgb 10.1 L Hct 28.7 L MCV 90.4 MCH 31.8 MCHC 35.2 RDW 14.7 Plt Count 382 D MPV 9.1 Neut % (Auto) 89.9 H Lymph % (Auto) 4.8 L [place] % (Auto) 4.5 Eos % (Auto) 0.2 Baso % (Auto) 0.6 Neut # (Auto) 14.4 H Lymph # (Auto) 0.8 L [place] # (Auto) 0.7 Eos # (Auto) 0.0 Baso # (Auto) 0.1 WBC Differential . Differential Comment Auto diff final Sodium 137 Potassium 4.2 Chloride 99 Carbon Dioxide 24.8 Anion Gap 13 BUN 19 H Creatinine 0.91 Estimated GFR 60 L POC Glucose Random Glucose 103 Calcium 8.8 Magnesium 1.3 L Total Bilirubin 0.9 AST 17 ALT 13 Alkaline Phosphatase 168 H Troponin I 0.07 H Total Protein 6.8 Albumin 2.9 L Urine Color Yellow Urine Clarity Cloudy H Urine pH 5.0 Ur Specific [place] 1.014 Urine Protein 30 H Urine Glucose (UA) Negative Urine Ketones Trace H Urine Occult Blood Negative Urine Nitrate Positive H Urine Bilirubin Negative Urine Urobilinogen Less than 2 Ur Leukocyte Esterase Large H Urine WBC Urine WBC Clumps Many H Urine Bacteria Occasional H Urine Mucus Few H Micro UA Comment Cath-culture ind Ur Microscopic Review Not Reportable Urine Culture Comments Cath-cult indicated 08/15/18 08/15/18 08/15/18 00:03 08:00 08:42 WBC 13.2 H RBC 2.70 L Hgb 8.7 L Hct 24.2 L MCV 89.8 MCH 32.1 MCHC 35.8 RDW 14.9 Plt Count 293 MPV 9.6 Neut % (Auto) 85.3 H Lymph % (Auto) 7.3 L [place] % (Auto) 6.4 Eos % (Auto) 0.5 Baso % (Auto) 0.5 Neut # (Auto) 11.3 H Lymph # (Auto) 1.0 [place] # (Auto) 0.8 Eos # (Auto) 0.1 Baso # (Auto) 0.1 WBC Differential . Differential Comment Auto diff final Sodium Potassium Chloride Carbon Dioxide Anion Gap BUN Creatinine Estimated GFR POC Glucose 83 Random Glucose Calcium Magnesium Total Bilirubin AST ALT Alkaline Phosphatase Troponin I 0.08 H Total Protein Albumin Urine Color Urine Clarity Urine pH Ur Specific [place] Urine Protein Urine Glucose (UA) Urine Ketones Urine Occult Blood Urine Nitrate Urine Bilirubin Urine Urobilinogen Ur Leukocyte Esterase Urine WBC Urine WBC Clumps Urine Bacteria Urine Mucus Micro UA Comment Ur Microscopic Review Urine Culture Comments - Imaging Impressions Chest X-Ray 08/14/18 17:07 CONCLUSION: 1. No focal consolidation. 2. Sharply marginated triangular opacity at the medial aspect of the right lung apex is presumed to be artifactual. 3. Redemonstrated right proximal humerus fracture. Head CT 08/14/18 17:12 CONCLUSION: 1. No acute findings in the brain. 2. Stable ischemic atrophy. . Sacrum and Coccyx X-Ray 08/14/18 17:12 CONCLUSION: Osteoporotic without displaced fracture. Degree of osteopenia makes detection of nondisplaced fractures difficult. - Procedures none Assessment and Plan - Assessment and Plan s/p R proximal humerus fracture approximately 1 month ago, seen by Dr. Orellana multiple co-morbidities hx of multiple falls, including yesterday continue to treat shoulder non-op sling for comfort consider repeat xrays of shoulder f/up with Dr. Orellana as scheduled 1-2 weeks
[2018-08-15 09:50] LABS: Alanine Aminotransferase 11 U/L (10-53); Albumin 2.2 g/dL (3.4-5.0); Alkaline Phosphatase 131 U/L (45-117); Anion Gap 11 meq/L (5-15); Aspartate Aminotransferase 14 U/L (15-37); Blood Urea Nitrogen 16 mg/dL (7-18); Calcium 8.4 mg/dL (8.5-10.1); Carbon Dioxide 22.7 meq/L (21.0-32.0); Chloride 105 meq/L (98-107); Glomerular Filtration Rate Greater Than 89 mL/min (>89); Glucose,Random 64 mg/dL (74-106); Potassium 4.1 meq/L (3.5-5.1); Sodium 139 meq/L (136-145); Total Protein 5.6 g/dL (6.4-8.2)
[2018-08-15] MEDS ORDERED: Acetaminophen 325 MG Tablet PO PRN (10:49)
[2018-08-15] MEDS ORDERED: Naloxone Inj 0.4 MG/ML Vial IV.PUSH PRN (10:49)
--- NOTE | 2018-08-15 11:10 | MB ---
cc: Tavo Kohler MD DATE: 08/15/2018 REASON FOR CONSULTATION: Bradycardia. HISTORY OF PRESENT ILLNESS: The patient is a 73-year-old woman with a history of coronary disease, followed by Dr. Lopez with a CABG x3 06/2014, who also has a history of dementia, hypertension, and elevated troponins. The patient apparently has had multiple falls and she presented with a fall and given the patient's dementia, she was unable to provide much of a history at the time. However, to me she says she remembers falling and did not lose consciousness. Since being here, she has been quite hypertensive with low heart rates in the 30s and 40s in atrial fibrillation. Currently, the patient is noting sacral pain, but no chest pain, shortness of breath, lightheadedness or dizziness. PAST MEDICAL HISTORY: Atrial fibrillation (apparently not on anticoagulation due to frequent falls), coronary artery disease, status post CABG x3, June 2014, hypertension, hyperlipidemia, dementia and frequent falls. CURRENT MEDICATIONS: 1. Tylenol. 2. Norvasc 5 mg daily. 3. Aricept 10 mg daily. 4. Pravachol. ALLERGIES: 1. CODEINE. 2. PENICILLIN. 3. SULFA. PHYSICAL EXAMINATION: VITAL SIGNS: Afebrile, pulse 42, respiratory rate 18, BP 210/112, saturating 97 on room air. GENERAL: Elderly, frail woman in no distress. NECK: No JVD. LUNGS: Clear to auscultation bilaterally. CARDIOVASCULAR: Irregularly irregular rhythm with a slow rate. ABDOMEN: Benign. EXTREMITIES: No edema. LABORATORY DATA: White count 13.2, down from 16, hematocrit 24.2, platelets 293, sodium 137, potassium 4.2, chloride 99, bicarbonate 24.8, BUN 19, creatinine 0.91. Troponins are in the indeterminate range of 0.07 and 0.08. DIAGNOSTIC DATA: EKG shows atrial fibrillation with a slow ventricular response at 43. IMPRESSION/PLAN: 1. Bradycardia. The patient has bradycardia with her atrial fibrillation, on no AV felton medications. It is unclear whether this has anything to do with her fall, but certainly her rates are low. I will discuss the possibility of a pacemaker (probably a leadless micra) and see if she would be interested. It is unclear whether this will have an effect on her falls, but I think it would be reasonable given the documented slow atrial fibrillation during waking hours. 2. Elevated troponin. The patient's elevated troponin is nonspecific, likely due to her very elevated blood pressures. 3. Hypertension. The patient's blood pressures are quite high. I would increase her amlodipine to 10 mg daily and add hydrochlorothiazide and would avoid any AV felton agents. Further recommendations based on the above. Thank you again for the opportunity to participate in this patient's care. MD YESENIA Boyce/isabella , 09:32 AM , 09:39 AM
[2018-08-15] MEDS: hydrALAZINE 25 MG Tablet PO PRN (12:27)
[2018-08-15] MEDS: hydroCHLOROthiazide 25 MG Tablet PO SCH (12:27)
[2018-08-15] MEDS: amLODIPine 10 MG Tablet PO SCH (12:27)
--- NOTE | 2018-08-15 13:49 | P.PN ---
Subjective Interval history: F/u HTN and rosa m. Shoulder pain. BP elevated HR in high 40s denies dizziness, chest pain and shortness of breath Physical Exam Vital signs: Vital Signs 08/14/18 17:06 08/14/18 18:16 08/14/18 18:59 Temperature Pulse Rate 59 L 59 L 46 L Respiratory Rate 18 18 16 Blood Pressure 234/102 H 195/80 H 172/81 H Pulse Oximetry 98 97 97 08/14/18 19:11 08/14/18 20:30 08/15/18 00:00 Temperature 97.6 F Pulse Rate 48 L 44 L 47 L Respiratory Rate 16 18 16 Blood Pressure 148/65 H 146/65 H 179/79 H Pulse Oximetry 98 97 97 08/15/18 03:32 08/15/18 08:00 08/15/18 11:22 Temperature 97.6 F 98.1 F 98.0 F Pulse Rate 44 L 39 L 43 L Respiratory Rate 16 18 16 Blood Pressure 165/72 H 210/112 H 215/87 H Pulse Oximetry 96 97 97 Intake & Output 08/14/18 08/15/18 08/15/18 18:59 06:59 18:59 Intake Total 1234 / 1234 Output Total 150 / 150 150 / 150 Balance 1084 / 1084 -150 / -150 Weight 140 kg 140 kg Intake: IV 1114 / 1114 NS Inj 1,000 ML @ 80 mls/hr IV. 914 / 914 CONT .[id number] [facility] Rx#:[id number] Magnesium Sulfate 1 gm/D5W 100 100 / 100 ml Premix 100 ML @ 100 mls/hr IV.SIG ONCE ONE Rx#:[id number] Rocephin Inj 1,000 MG In NS Inj 100 / 100 100 ML @ 200 mls/hr IV.SIG Q24H [facility] Rx#:[id number] Oral 120 / 120 Output: Urine 150 / 150 Urine Amount (Catheter) 150 / 150 Female External 150 / 150 Other: Weight On Admission 140 kg Narrative: GENERAL: Pleasant elderly white female in no acute distress, appears weak/tired. SKIN: Focused skin assessment warm and dry. CARDIOVASCULAR: Regular rate and rhythm. No obvious murmurs to auscultation. No chest tenderness to palpation. RESPIRATORY: No obvious rhonchi or wheezing. Clear to auscultation. Breath sounds equal bilaterally. GASTROINTESTINAL: Abdomen soft, non-tender, nondistended. BS normal. MUSCULOSKELETAL: Extremities without clubbing, cyanosis, or edema. No obvious deformities. NEUROLOGICAL: Awake, alert and oriented to person/place. No focal neurologic deficits. Moving both upper and lower extremities spontaneously. PSYCHIATRIC: Appropriate mood and affect. Insight and judgment normal. - Urinary Catheter Management Female External Cath placed during this visit: no Results - Labs CBC & Chem 7: 08/15/18 08:00 08/15/18 08:00 Laboratory Results - last 24 hr 08/14/18 08/14/18 08/14/18 17:17 17:17 18:36 WBC 16.0 H RBC 3.18 L Hgb 10.1 L Hct 28.7 L MCV 90.4 MCH 31.8 MCHC 35.2 RDW 14.7 Plt Count 382 D MPV 9.1 Neut % (Auto) 89.9 H Lymph % (Auto) 4.8 L Howard % (Auto) 4.5 Eos % (Auto) 0.2 Baso % (Auto) 0.6 Neut # (Auto) 14.4 H Lymph # (Auto) 0.8 L Howard # (Auto) 0.7 Eos # (Auto) 0.0 Baso # (Auto) 0.1 WBC Differential . Differential Comment Auto diff final Sodium 137 Potassium 4.2 Chloride 99 Carbon Dioxide 24.8 Anion Gap 13 BUN 19 H Creatinine 0.91 Estimated GFR 60 L POC Glucose Random Glucose 103 Calcium 8.8 Magnesium 1.3 L Total Bilirubin 0.9 AST 17 ALT 13 Alkaline Phosphatase 168 H Troponin I 0.07 H Total Protein 6.8 Albumin 2.9 L Urine Color Yellow Urine Clarity Cloudy H Urine pH 5.0 Ur Specific [place] 1.014 Urine Protein 30 H Urine Glucose (UA) Negative Urine Ketones Trace H Urine Occult Blood Negative Urine Nitrate Positive H Urine Bilirubin Negative Urine Urobilinogen Less than 2 Ur Leukocyte Esterase Large H Urine WBC Urine WBC Clumps Many H Urine Bacteria Occasional H Urine Mucus Few H Micro UA Comment Cath-culture ind Ur Microscopic Review Not Reportable Urine Culture Comments Cath-cult indicated 08/15/18 08/15/18 08/15/18 00:03 08:00 08:00 WBC 13.2 H RBC 2.70 L Hgb 8.7 L Hct 24.2 L MCV 89.8 MCH 32.1 MCHC 35.8 RDW 14.9 Plt Count 293 MPV 9.6 Neut % (Auto) 85.3 H Lymph % (Auto) 7.3 L Howard % (Auto) 6.4 Eos % (Auto) 0.5 Baso % (Auto) 0.5 Neut # (Auto) 11.3 H Lymph # (Auto) 1.0 Howard # (Auto) 0.8 Eos # (Auto) 0.1 Baso # (Auto) 0.1 WBC Differential . Differential Comment Auto diff final Sodium 139 Potassium 4.1 Chloride 105 Carbon Dioxide 22.7 Anion Gap 11 BUN 16 Creatinine 0.64 Estimated GFR Greater than 89 POC Glucose Random Glucose 64 L Calcium 8.4 L Magnesium Total Bilirubin 0.6 AST 14 L ALT 11 Alkaline Phosphatase 131 H Troponin I 0.08 H Total Protein 5.6 L D Albumin 2.2 L D Urine Color Urine Clarity Urine pH Ur Specific [place] Urine Protein Urine Glucose (UA) Urine Ketones Urine Occult Blood Urine Nitrate Urine Bilirubin Urine Urobilinogen Ur Leukocyte Esterase Urine WBC Urine WBC Clumps Urine Bacteria Urine Mucus Micro UA Comment Ur Microscopic Review Urine Culture Comments 08/15/18 08/15/18 08/15/18 08:00 08:42 12:32 WBC RBC Hgb Hct MCV MCH MCHC RDW Plt Count MPV Neut % (Auto) Lymph % (Auto) Howard % (Auto) Eos % (Auto) Baso % (Auto) Neut # (Auto) Lymph # (Auto) Howard # (Auto) Eos # (Auto) Baso # (Auto) WBC Differential Differential Comment Sodium Potassium Chloride Carbon Dioxide Anion Gap BUN Creatinine Estimated GFR POC Glucose 83 76 Random Glucose Calcium Magnesium Total Bilirubin AST ALT Alkaline Phosphatase Troponin I 0.06 H Total Protein Albumin Urine Color Urine Clarity Urine pH Ur Specific [place] Urine Protein Urine Glucose (UA) Urine Ketones Urine Occult Blood Urine Nitrate Urine Bilirubin Urine Urobilinogen Ur Leukocyte Esterase Urine WBC Urine WBC Clumps Urine Bacteria Urine Mucus Micro UA Comment Ur Microscopic Review Urine Culture Comments Microbiology 08/14/18 18:37 Wound - Decubitis Gram Stain - Final 08/14/18 18:37 Wound - Decubitis Wound Culture - Preliminary gram negative rods 08/14/18 18:36 Clean Catch Urine Urine Culture - Preliminary gram negative rods - Imaging Impressions Chest X-Ray 08/14/18 17:07 CONCLUSION: 1. No focal consolidation. 2. Sharply marginated triangular opacity at the medial aspect of the right lung apex is presumed to be artifactual. 3. Redemonstrated right proximal humerus fracture. Head CT 08/14/18 17:12 CONCLUSION: 1. No acute findings in the brain. 2. Stable ischemic atrophy. . Sacrum and Coccyx X-Ray 08/14/18 17:12 CONCLUSION: Osteoporotic without displaced fracture. Degree of osteopenia makes detection of nondisplaced fractures difficult. - Procedures none Assessment and Plan - Assessment (1) Syncope Code(s): R55 - Syncope and collapse Status: Acute (2) Symptomatic bradycardia Code(s): R00.1 - Bradycardia, unspecified Status: Acute (3) UTI (urinary tract infection) Code(s): N39.0 - Urinary tract infection, site not specified Status: Acute (4) DM (diabetes mellitus) Code(s): E11.9 - Type 2 diabetes mellitus without complications Status: Acute (5) Elevated troponin Code(s): R74.8 - Abnormal levels of other serum enzymes Status: Acute (6) HTN (hypertension) Code(s): I10 - Essential (primary) hypertension Status: Acute - Plan 1. Syncope: suspected syncopal event, pt w/ unwitnessed fall, recent admit -07/27 for similar fall w/ prox humerus fx and d/c'd home from [facility]. CT Head w/ no acute findings, images reviewed. Will admit for Observation, PT for eval/tx recommends rehab, Case Management for placement. 2. Bradycardia: Symptomatic. HR 40's while in ER, s/p Clonidine in ER for BP , will avoid Clonidine or B-Sebastian in light of bradycardia. Echo 09/15/15 w/ EF 45-50%, will obtain repeat Echo to eval for valvular abnormalities/worsening cardiomyopathy. Per cardiology may need pacemaker 3. Elevated Trop: This is flat no c/o chest pain, no acute EKG changes, possibly due to uncontrolled HTN, BP 230's on arrival, will place on telemetry 4. UTI: U/a w/ UTI, start Rocephin IV, follow up cultures with gram-negative sofia 5. DM: Sliding scale w/ Accu-Cheks, hold Metformin for now 6. DVT Prophylaxis: SCD/Teds Discharge Planning: Needs rehab (1) Syncope Qualifiers: Syncope type: unspecified Qualified Code(s): R55 - Syncope and collapse
--- NOTE | 2018-08-15 14:22 | ECG ---
Date Performed: 08/14/2018 Time Performed: 17:23:01 PTAGE: 73 years EKG: ATRIAL FIBRILLATION WITH SLOW VENTRICULAR RESPONSE RIGHT BUNDLE BRANCH BLOCK Diffuse Nonspe cific ST-T wave changes ABNORMAL ECG PREVIOUS TRACING : 07/18/2018 10.51 Compared to previous tracing, venrricular response to atria l fibrillation remains very slow. ST depression persists. Clinical correlation is recommended DOCTOR: Freddie Edwards Interpretating Date/Time 08/15/2018 14:22:43
--- NOTE | 2018-08-15 14:27 | ECHRPT ---
Indication: Syncope and collapse CONCLUSIONS The left ventricular systolic function is low normal with an estimated ejection fraction in the rang e of 50- 55%. Wall thickness is normal. Normal left ventricular size. The left atrial size is ddgdmnav-[id number] dilated. Moderate mitral valve regurgitation. There is moderate tricuspid regurgitation. The estimated pulmonary arterial pressure is 61.2 mmHg. There is estimated nhjucgai-zq-qxwsfj pulmonary hypertension present (range 60-70 mmHg). BP: / HR: Rhythm: Sinus MEASUREMENTS (Male / Female) Normal Values Technical Quality:Good 2D ECHO LV Diastolic Diameter PLAX 3.5 cm 4.2 - 5.9 / 3.9 - 5.3 cm LV Systolic Diameter PLAX 2.7 cm IVS Diastolic Thickness 1.0 cm 0.6 - 1.0 / 0.6 - 0.9 cm LVPW Diastolic Thickness 1.0 cm 0.6 - 1.0 / 0.6 - 0.9 cm LV Relative Wall Thickness 0.6 LVOT Diameter 2.2 cm M-MODE Aortic Root Diameter MM 3.6 cm LA Systolic Diameter MM 5.2 cm LA Ao Ratio MM 1.4 AV Cusp Separation MM 1.4 cm DOPPLER AV Peak Velocity 225.0 cm/s AV Peak Gradient 20.3 mmHg LVOT Peak Velocity 111.0 cm/s LVOT Peak Gradient 4.9 mmHg AV Area Cont Eq pk 1.9 cm MV Peak Velocity 222.0 cm/s MV Peak Gradient 19.7 mmHg MV Mean Velocity 83.9 cm/s MV Mean Gradient 4.0 mmHg MR Peak Velocity 328.0 cm/s MR Peak Gradient 43.0 mmHg TR Peak Velocity 357.7 cm/s TR Peak Gradient 51.2 mmHg Right Atrial Pressure 10.0 mmHg Pulmonary Artery Systolic Pressu 61.2 mmHg Right Ventricular Systolic Press 61.2 mmHg PV Peak Velocity 126.0 cm/s PV Peak Gradient 6.4 mmHg FINDINGS LEFT VENTRICLE The left ventricular systolic function is low normal with an estimated ejection fraction in the rang e of 50- 55%. Wall thickness is normal. Normal left ventricular size. RIGHT VENTRICLE Normal right ventricular size and systolic function. LEFT ATRIUM The left atrial size is nklcudrw-gl-fmzgaype dilated. RIGHT ATRIUM The right atrial size is normal. ATRIAL SEPTUM Normal atrial septal thickness without atrial level shunting by limited color doppler interrogation. AORTA The aortic root and proximal ascending aorta are normal in size on limited imaging. MITRAL VALVE Moderate mitral valve regurgitation. AORTIC VALVE Trileaflet aortic valve. No aortic valve stenosis or regurgitation. TRICUSPID VALVE There is moderate tricuspid regurgitation. The estimated pulmonary arterial pressure is 61.2 mmHg. There is estimated bdnolqot-re-tqqdan pulmonary hypertension present (range 60-70 mmHg). PULMONARY VALVE No pulmonary valve regurgitation or stenosis. VESSELS The inferior vena cava is normal in size. PERICARDIUM No pericardial effusion. Tavo Kohler MD (Electronically Signed) Final Date:15 August 2018 14:26
[2018-08-16] MEDS: hydrALAZINE 25 MG Tablet PO PRN (01:09)
[2018-08-16] MEDS: Insulin NovoLOG Aspart Correctional Sugar Inj SQ SCH ×4 (08:24→21:18)
[2018-08-16] MEDS: Senna/Docusate Sodium 8.6/50 MG Tablet PO SCH ×2 (08:34→20:07)
[2018-08-16] MEDS: hydroCHLOROthiazide 25 MG Tablet PO SCH (08:34)
[2018-08-16] MEDS: amLODIPine 10 MG Tablet PO SCH (08:34)
[2018-08-16] MEDS: Sodium Chloride 0.9% 2 ML Flush BID IV.FLUSH SCH ×2 (08:35→20:06)
[2018-08-16] MEDS ORDERED: Lisinopril 5 MG Tablet PO SCH ×2 (09:00→21:00)
--- NOTE | 2018-08-16 11:14 | P.PN ---
Subjective Interval history: Follow-up hypertension and bradycardia. Denies headache or dizziness but has chronic right shoulder pain. Son does not want PPM per nurse. Developed hypoglycemia secondary to poor po Physical Exam Vital signs: Vital Signs 08/15/18 11:22 08/15/18 16:00 08/15/18 19:08 Temperature 98.0 F 98.0 F 98.8 F Pulse Rate 43 L 53 L 65 Respiratory Rate 16 16 18 Blood Pressure 215/87 H 177/77 H 203/84 H Pulse Oximetry 97 97 95 08/15/18 23:30 08/16/18 03:12 08/16/18 04:00 Temperature 98.5 F 97.9 F Pulse Rate 47 L 47 L 53 L Respiratory Rate 18 17 Blood Pressure 183/77 H 180/77 H Pulse Oximetry 96 97 08/16/18 07:53 Temperature 98.6 F Pulse Rate 50 L Respiratory Rate 16 Blood Pressure 174/75 H Pulse Oximetry 95 Intake & Output 08/15/18 08/16/18 08/16/18 18:59 06:59 18:59 Intake Total 700 / 700 340 / 340 Output Total 150 / 150 110 / 110 Balance 550 / 550 230 / 230 Intake: IV 700 / 700 100 / 100 NS Inj 1,000 ML @ 80 mls/hr IV. 700 / 700 CONT .[id number] [facility] Rx#:[id number] Rocephin Inj 1,000 MG In NS Inj 100 / 100 100 ML @ 200 mls/hr IV.SIG Q24H [facility] Rx#:[id number] Oral 240 / 240 Output: Urine 110 / 110 Urine Amount (Catheter) 150 / 150 Female External 150 / 150 Other: # Incontinent Voids 1 Narrative: GENERAL: Pleasant elderly white female in no acute distress SKIN: Focused skin assessment warm and dry. Stage II sacral decub with surrounding erythema CARDIOVASCULAR: Regular rate and rhythm. No obvious murmurs to auscultation. No chest tenderness to palpation. RESPIRATORY: No obvious rhonchi or wheezing. Clear to auscultation. Breath sounds equal bilaterally. GASTROINTESTINAL: Abdomen soft, non-tender, nondistended. BS normal. MUSCULOSKELETAL: Extremities without clubbing, cyanosis, or edema. No obvious deformities. NEUROLOGICAL: Awake, alert and oriented to person/place. No focal neurologic deficits. Decreased range of motion right upper extremity PSYCHIATRIC: Appropriate mood and affect. Insight and judgment normal. - Urinary Catheter Management Female External Cath placed during this visit: no Results - Labs CBC & Chem 7: 08/15/18 08:00 08/15/18 08:00 Laboratory Results - last 24 hr 08/14/18 08/15/18 08/15/18 18:36 12:32 18:47 POC Glucose 76 63 L Urine Color Yellow Urine Clarity Cloudy H Urine pH 5.0 Ur Specific [place] 1.014 Urine Protein 30 H Urine Glucose (UA) Negative Urine Ketones Trace H Urine Occult Blood Negative Urine Nitrate Positive H Urine Bilirubin Negative Urine Urobilinogen Less than 2 Ur Leukocyte Esterase Large H Urine WBC Urine WBC Clumps Many H Urine Bacteria Occasional H Urine Mucus Few H Micro UA Comment Cath-culture ind Urine Culture Comments Cath-cult indicated 08/15/18 08/16/18 08/16/18 21:41 08:03 08:40 POC Glucose 80 59 L 110 Urine Color Urine Clarity Urine pH Ur Specific [place] Urine Protein Urine Glucose (UA) Urine Ketones Urine Occult Blood Urine Nitrate Urine Bilirubin Urine Urobilinogen Ur Leukocyte Esterase Urine WBC Urine WBC Clumps Urine Bacteria Urine Mucus Micro UA Comment Urine Culture Comments Microbiology 08/14/18 18:37 Wound - Decubitis Gram Stain - Final 08/14/18 18:37 Wound - Decubitis Wound Culture - Preliminary Pseudomonas aeruginosa gram negative rods 08/14/18 18:36 Clean Catch Urine Urine Culture - Preliminary gram negative rods - Imaging ITS Impressions Chest X-Ray 08/14/18 17:07 CONCLUSION: 1. No focal consolidation. 2. Sharply marginated triangular opacity at the medial aspect of the right lung apex is presumed to be artifactual. 3. Redemonstrated right proximal humerus fracture. Head CT 08/14/18 17:12 CONCLUSION: 1. No acute findings in the brain. 2. Stable ischemic atrophy. . Sacrum and Coccyx X-Ray 08/14/18 17:12 CONCLUSION: Osteoporotic without displaced fracture. Degree of osteopenia makes detection of nondisplaced fractures difficult. - Procedures none Assessment and Plan - Assessment (1) Syncope Code(s): R55 - Syncope and collapse Status: Acute (2) Symptomatic bradycardia Code(s): R00.1 - Bradycardia, unspecified Status: Acute (3) UTI (urinary tract infection) Code(s): N39.0 - Urinary tract infection, site not specified Status: Acute (4) DM (diabetes mellitus) Code(s): E11.9 - Type 2 diabetes mellitus without complications Status: Acute (5) Elevated troponin Code(s): R74.8 - Abnormal levels of other serum enzymes Status: Acute (6) HTN (hypertension) Code(s): I10 - Essential (primary) hypertension Status: Acute - Plan 1. Syncope: suspected syncopal event, pt w/ unwitnessed fall, recent admit -07/27 for similar fall w/ prox humerus fx and [facility] Head w/ no acute findings, images reviewed. Will admit for Observation, PT for eval/tx recommends rehab, Case Management for placement. 2. Bradycardia: Symptomatic. HR 40's while in ER, s/p Clonidine in ER for BP , will avoid Clonidine or B-Sebastian in light of bradycardia. Echo w/ EF 50% Per cardiology may need pacemaker but patient's son does not want her to have it 3. Elevated Trop: This is flat no c/o chest pain, no acute EKG changes, possibly due to uncontrolled HTN, BP 230's on arrival, will place on telemetry 4. UTI: U/a w/ UTI follow up cultures with gram-negative sofia. Infected sacral wound with PSAE and GNR, switch to IV levaquin. Wd care 5. DM: Sliding scale w/ Accu-Cheks, hold Metformin for now. Hypoglycemia protocol 6. DVT Prophylaxis: SCD/Teds, SQ heparin Discharge Planning: Needs rehab (1) Syncope Qualifiers: Syncope type: unspecified Qualified Code(s): R55 - Syncope and collapse
--- NOTE | 2018-08-16 11:44 | P.PNCA ---
Subjective Interval history: Slow afib continues on tele; pt/son decided against PPM; note pain at sacral wound but no cardiac complaints. Medications and Allergies Active Medications: Active Medications Acetaminophen (Tylenol) 650 mg PO Q4H PRN PRN Reason: Temp > 100.4 Last Admin: 08/15/18 09:06 Dose: 650 mg Acetaminophen (Tylenol) 650 mg PO Q6H PRN PRN Reason: PAIN SCALE 1 TO 2 Hydrocodone Bitart/Acetaminophen (Continental 7.5/325) 1 tab PO Q4H PRN PRN Reason: PAIN SCALE 6 TO 10 Last Admin: 08/15/18 20:14 Dose: 1 tab Al Hydroxide/Mg Hydroxide (Milk Of Mirian Collazo) 30 ml PO Q12H PRN PRN Reason: Mild Constipation Amlodipine Besylate (Norvasc) 10 mg PO DAILY [facility] Last Admin: 08/16/18 08:34 Dose: 10 mg Aspirin (Ecotrin) 81 mg PO DAILY [facility] Last Admin: 08/16/18 08:34 Dose: 81 mg Bisacodyl (Dulcolax Supp) 10 mg RECTAL DAILY PRN PRN Reason: SEVERE CONSITIPATION Dextrose (D50w Vial) 50 ml IV.PUSH UNSCH PRN PRN Reason: PER HYPOGLYCEMIA PROTOCOL Donepezil HCl (Aricept) 10 mg PO DAILY [facility] Last Admin: 08/16/18 08:34 Dose: 10 mg Enalaprilat (Vasotec Inj) 1.25 mg IV.PUSH Q6H PRN PRN Reason: SEE LABEL COMMENTS Last Admin: 08/16/18 03:31 Dose: 1.25 mg Glucagon (Glucagon Inj) 1 mg OTHER PRN PRN PRN Reason: for Hypoglycemia Protocol Heparin Sodium (Porcine) (Heparin Inj) 5,000 units SQ Q12HR [facility] Hydralazine HCl (Apresoline) 25 mg PO TID PRN PRN Reason: SBP>160, DBP>90 Last Admin: 08/16/18 01:09 Dose: 25 mg Hydrochlorothiazide (Hydrodiuril) 25 mg PO DAILY [facility] Last Admin: 08/16/18 08:34 Dose: 25 mg Levofloxacin/Dextrose (Levaquin 750 Mg Premix Inj) 150 mls @ 100 mls/hr IV.SIG Q24H [facility] Insulin Aspart (Novolog Insulin Correctional Sugar Inj) 0 unit SQ ACHS [facility]; Protocol Last Admin: 08/16/18 08:24 Dose: Not Given Lactulose (Lactulose Liq) 30 ml PO DAILY PRN PRN Reason: SEVERE CONSITIPATION Lisinopril (Prinivil) 5 mg PO DAILY [facility] Last Admin: 08/16/18 09:22 Dose: 5 mg Multivitamins (Theragran) 1 tab PO DAILY [facility] Last Admin: 08/16/18 08:34 Dose: 1 tab Naloxone HCl (Narcan Inj) 0.4 mg IV.PUSH UNSCH PRN PRN Reason: SEE LABEL COMMENTS Ondansetron HCl (Zofran Inj) 4 mg IV.PUSH Q6H PRN PRN Reason: NAUSEA OR VOMITING Pravastatin Sodium (Pravachol) 20 mg PO DAILY [facility] Last Admin: 08/16/18 08:34 Dose: 20 mg Senna/Docusate Sodium (Kateryna-Colace) 1 tab PO BID [facility] Last Admin: 08/16/18 08:34 Dose: 1 tab Sennosides (Senokot) 17.2 mg PO Q12H PRN PRN Reason: Moderate Constipation Sodium Chloride (Ns Flush) 2 ml IV.FLUSH BID [facility] Last Admin: 08/16/18 08:35 Dose: 2 ml Sodium Chloride (Ns Flush) 2 ml IV.FLUSH PRN PRN PRN Reason: FLUSH AFTER USING IV ACCESS Tramadol HCl (Ultram) 50 mg PO Q4H PRN PRN Reason: PAIN SCALE 3 TO 5 Allergies Allergy/AdvReac Type Severity Reaction Status Date / Time codeine Allergy Mild Rash Verified 07/18/18 11:48 penicillin G Allergy Mild Rash Verified 07/18/18 11:48 Sulfa (Sulfonamide Allergy Mild Rash Verified 07/18/18 11:48 Antibiotics) Home Medications Medication Instructions Recorded Confirmed Type aspirin [Aspirin Low Dose] 81 mg PO DAILY 07/18/18 08/14/18 History cholecalciferol (vitamin D3) 2,000 unit PO DAILY 07/18/18 08/14/18 History [Vitamin D3] donepezil 10 mg PO DAILY 07/18/18 08/14/18 History lisinopril 5 mg PO DAILY 07/18/18 08/14/18 History metformin 1,000 mg PO BID 07/18/18 08/14/18 History multivitamin 1 tab PO DAILY 07/18/18 08/14/18 History pravastatin 20 mg PO DAILY 07/18/18 08/14/18 History spironolactone 50 mg PO DAILY 07/18/18 08/14/18 History Physical Exam Vital signs: Vital Signs 08/15/18 16:00 08/15/18 19:08 08/15/18 23:30 Temperature 98.0 F 98.8 F 98.5 F Pulse Rate 53 L 65 47 L Respiratory Rate 18 Blood Pressure 177/77 H 203/84 H 183/77 H Pulse Oximetry 97 95 96 08/16/18 03:12 08/16/18 04:00 08/16/18 07:53 Temperature 97.9 F 98.6 F Pulse Rate 47 L 53 L 50 L Respiratory Rate 17 16 Blood Pressure 180/77 H 174/75 H Pulse Oximetry 97 95 Intake & Output 08/15/18 08/16/18 08/16/18 18:59 06:59 18:59 Intake Total 700 / 700 340 / 340 Output Total 150 / 150 110 / 110 Balance 550 / 550 230 / 230 Intake: IV 700 / 700 100 / 100 NS Inj 1,000 ML @ 80 mls/hr IV. 700 / 700 CONT .[id number] [facility] Rx#:[id number] Rocephin Inj 1,000 MG In NS Inj 100 / 100 100 ML @ 200 mls/hr IV.SIG Q24H [facility] Rx#:[id number] Oral 240 / 240 Output: Urine 110 / 110 Urine Amount (Catheter) 150 / 150 Female External 150 / 150 Other: # Incontinent Voids 1 - Constitutional no acute distress - Routine HEENT Exam Head: Present: normocephalic Eye: Present: EOMI ENT: Present: mucous membranes moist - Routine Neck Exam Present: supple. Absent: JVD - Routine Cardiovascular Exam Present: bradycardia, irregular rhythm - Routine Extremities Exam Absent: edema - Urinary Catheter Management Female External Cath placed during this visit: no Results 08/15/18 08:00 08/15/18 08:00 Cardiac Enzymes 08/14/18 08/15/18 08/15/18 Range/Units 17:17 00:03 08:00 AST 17 14 L (15-37) U/L Troponin I 0.07 H 0.08 H (0.02-0.05) ng/mL 08/15/18 Range/Units 08:00 AST (15-37) U/L Troponin I 0.06 H (0.02-0.05) ng/mL CBC 08/14/18 08/15/18 Range/Units 17: 08:00 WBC 16.0 H 13.2 H (4.0-11.0) th/mm3 RBC 3.18 L 2.70 L (4.00-5.30) mil/mm3 Hgb 10.1 L 8.7 L (11.6-15.3) gm/dL Hct 28.7 L 24.2 L (35.0-46.0) % Plt Count 382 D 293 (150-450) th/mm3 Neut # (Auto) 14.4 H 11.3 H (1.8-7.7) th/mm3 Lymph # (Auto) 0.8 L 1.0 (1.0-4.8) th/mm3 [place] # (Auto) 0.7 0.8 (0.0-0.9) th/mm3 Eos # (Auto) 0.0 0.1 (0.0-0.4) th/mm3 Baso # (Auto) 0.1 0.1 (0.0-0.2) th/mm3 Comprehensive Metabolic Panel 08/14/18 08/15/18 Range/Units 17: 08:00 Sodium 137 139 (136-145) meq/L Potassium 4.2 4.1 (3.5-5.1) meq/L Chloride 99 105 (98-107) meq/L Carbon Dioxide 24.8 22.7 (21.0-32.0) meq/L BUN 19 H 16 (7-18) mg/dL Creatinine 0.91 0.64 (0.50-1.00) mg/dL Calcium 8.8 8.4 L (8.5-10.1) mg/dL AST 17 14 L (15-37) U/L ALT 13 11 (10-53) U/L Alkaline Phosphatase 168 H 131 H (45-117) U/L Total Protein 6.8 5.6 L D (6.4-8.2) g/dL Albumin 2.9 L 2.2 L D (3.4-5.0) g/dL Intake and Output 08/15/18 08/16/18 08/16/18 22:59 06:59 14:59 Intake Total 100 / 100 240 / 240 Output Total 110 / 110 Balance 100 / 100 130 / 130 Intake: IV 100 / 100 Rocephin Inj 1,000 MG In NS Inj 100 / 100 100 ML @ 200 mls/hr IV.SIG Q24H [facility] Rx#:[id number] Oral 240 / 240 Output: Urine 110 / 110 Other: # Incontinent Voids 1 - Imaging and Cardiology Imaging: Impressions Chest X-Ray 08/14/18 17:07 CONCLUSION: 1. No focal consolidation. 2. Sharply marginated triangular opacity at the medial aspect of the right lung apex is presumed to be artifactual. 3. Redemonstrated right proximal humerus fracture. Head CT 08/14/18 17:12 CONCLUSION: 1. No acute findings in the brain. 2. Stable ischemic atrophy. . Sacrum and Coccyx X-Ray 08/14/18 17:12 CONCLUSION: Osteoporotic without displaced fracture. Degree of osteopenia makes detection of nondisplaced fractures difficult. Assessment and Plan - Assessment (1) Symptomatic bradycardia Code(s): R00.1 - Bradycardia, unspecified Status: Acute Plan: Unclear whether truly symptomatic but significant rosa m seen w/ her afib; I did offer a PPM (likely a leadless MICRA), but pt/son have declined; would have to be cleared from an ID standpoint first regardless due to active infection; Will sign off for now, please call with any questions (2) Acute UTI Code(s): N39.0 - Urinary tract infection, site not specified Status: Acute
[2018-08-16] MEDS: Heparin - SQ 10,000 UNITS/ML Vial SQ SCH (20:06)
[2018-08-17] MEDS ORDERED: Ketorolac Inj 30 MG/ML (IVP) Vial IV.PUSH ONE (00:39)
--- NOTE | 2018-08-17 09:00 | P.PN ---
Subjective Interval history: Follow-up bradycardia, UTI and infected sacral wound. Patient has no new complaints. Telemetry shows improved bradycardia. Discussed with nursing sob optimal oral intake, patient has been encouraged. Informed by protective services case worker that the son wants to reconsider pacemaker and will discuss with cardiology Physical Exam Vital signs: Vital Signs 08/16/18 12:00 08/16/18 15:52 08/16/18 19:45 Temperature 98.3 F 98.4 F Pulse Rate 68 68 Respiratory Rate 16 16 16 Blood Pressure 194/75 H 161/70 H Pulse Oximetry 95 97 08/16/18 20:00 08/16/18 20:29 08/16/18 20:40 Temperature 98.0 F Pulse Rate 57 L 68 Respiratory Rate 20 16 Blood Pressure 176/94 H Pulse Oximetry 96 08/16/18 23:59 08/17/18 00:00 08/17/18 01:30 Temperature 98.2 F Pulse Rate 57 L Respiratory Rate 17 16 16 Blood Pressure 135/60 Pulse Oximetry 96 08/17/18 03:52 08/17/18 03:57 Temperature 97.5 F L Pulse Rate 66 Respiratory Rate 16 17 Blood Pressure 178/75 H Pulse Oximetry 97 Intake & Output 08/16/18 08/17/18 08/17/18 18:59 06:59 18:59 Intake Total 590 / 590 Output Total 600 / 600 Balance -10 / -10 Intake: IV 350 / 350 Azactam Inj 1,000 MG In NS Inj 200 / 200 100 ML @ 200 mls/hr IV.SIG Q8H [facility] Rx#:[id number] Levaquin 750 mg Premix Inj 150 150 / 150 ML @ 100 mls/hr IV.SIG Q24H [facility] Rx#:[id number] Oral 240 / 240 Output: Urine Amount (Catheter) 600 / 600 Female External 600 / 600 Other: Date of Last Bowel Movement 08/16/18 # Bowel Movements 1 # Incontinent Bowel Movements 1 Narrative: GENERAL: Pleasant elderly white female in no acute distress SKIN: Focused skin assessment warm and dry. Stage II sacral decub with surrounding erythema CARDIOVASCULAR: Regular rate and rhythm. No obvious murmurs to auscultation. No chest tenderness to palpation. RESPIRATORY: No obvious rhonchi or wheezing. Clear to auscultation. Breath sounds equal bilaterally. GASTROINTESTINAL: Abdomen soft, non-tender, nondistended. BS normal. MUSCULOSKELETAL: Extremities without clubbing, cyanosis, or edema. No obvious deformities. NEUROLOGICAL: Awake, alert and oriented to person/place. No focal neurologic deficits. Decreased range of motion right upper extremity - Urinary Catheter Management Female External Cath placed during this visit: no Results - Labs CBC & Chem 7: 08/15/18 08:00 08/15/18 08:00 Laboratory Results - last 24 hr 08/16/18 08/16/18 08/16/18 12:32 17:05 21:05 POC Glucose 95 68 73 Microbiology 08/14/18 18:36 Clean Catch Urine Urine Culture - Final Pseudomonas aeruginosa 08/14/18 18:37 Wound - Decubitis Gram Stain - Final 08/14/18 18:37 Wound - Decubitis Wound Culture - Preliminary Pseudomonas aeruginosa gram negative rods - Procedures none Assessment and Plan - Assessment (1) Syncope Code(s): R55 - Syncope and collapse Status: Acute (2) Symptomatic bradycardia Code(s): R00.1 - Bradycardia, unspecified Status: Acute (3) UTI (urinary tract infection) Code(s): N39.0 - Urinary tract infection, site not specified Status: Acute (4) DM (diabetes mellitus) Code(s): E11.9 - Type 2 diabetes mellitus without complications Status: Acute (5) Elevated troponin Code(s): R74.8 - Abnormal levels of other serum enzymes Status: Acute (6) HTN (hypertension) Code(s): I10 - Essential (primary) hypertension Status: Acute - Plan 1. Syncope: suspected syncopal event, pt w/ unwitnessed fall, recent admit -07/27 for similar fall w/ prox humerus fx and d/c'd home from [facility]. CT Head w/ no acute findings, images reviewed. Neurologically intact and stable. PT for eval/tx recommends rehab, Case Management for placement. 2. Bradycardia: Symptomatic. HR 40's while in ER, s/p Clonidine in ER for BP , will avoid Clonidine or B-Sebastian in light of bradycardia. Echo w/ EF 50% Per cardiology may need pacemaker but patient's son declined. 3. Elevated Trop: This is flat no c/o chest pain, no acute EKG changes, possibly due to uncontrolled HTN, BP 230's on arrival, will place on telemetry 4. UTI: U/a w/ UTI follow up cultures with pseudomonas aeruginosa. Infected sacral wound with PSAE and GNR, switched to aztreonam August 16, 2018 based on sensitivities. Wd care consulted wound care 5. DM: Sliding scale w/ Accu-Cheks, hold Metformin for now. Hypoglycemia secondary to poor oral intake. Hypoglycemia protocol. Switch to regular diet for now 6. DVT Prophylaxis: SCD/Teds, SQ heparin Discharge Planning: Dw UR, does not meet inpatient status. Needs rehab per PT, case management consult. Needs IV aztreonam til 08/24 for UTI and infected wd. If accepted by SNF may need midline (1) Syncope Qualifiers: Syncope type: unspecified Qualified Code(s): R55 - Syncope and collapse
[2018-08-17] MEDS: Heparin - SQ 10,000 UNITS/ML Vial SQ SCH ×2 (09:36→20:40)
[2018-08-17] MEDS: Senna/Docusate Sodium 8.6/50 MG Tablet PO SCH ×2 (09:36→20:32)
[2018-08-17] MEDS: amLODIPine 10 MG Tablet PO SCH (09:36)
[2018-08-17] MEDS: Sodium Chloride 0.9% 2 ML Flush BID IV.FLUSH SCH ×2 (09:37→20:32)
[2018-08-17] MEDS: hydroCHLOROthiazide 25 MG Tablet PO SCH (09:37)
[2018-08-17] MEDS: Insulin NovoLOG Aspart Correctional Sugar Inj SQ SCH ×4 (09:58→20:31)
[2018-08-17] MEDS ORDERED: Lisinopril 10 MG Tablet PO SCH (10:00)
[2018-08-17] MEDS: Lisinopril 10 MG Tablet PO SCH ×2 (11:29→20:32)
[2018-08-18] MEDS: Dextrose 5%/NaCl 0.45% Inj 1,000 ML IV.CONT SCH (00:40)
[2018-08-18] MEDS: amLODIPine 10 MG Tablet PO SCH (09:07)
[2018-08-18] MEDS: hydroCHLOROthiazide 25 MG Tablet PO SCH (09:07)
[2018-08-18] MEDS: Senna/Docusate Sodium 8.6/50 MG Tablet PO SCH ×2 (09:07→21:18)
[2018-08-18] MEDS: Lisinopril 10 MG Tablet PO SCH ×2 (09:07→21:17)
[2018-08-18] MEDS: Heparin - SQ 10,000 UNITS/ML Vial SQ SCH ×2 (09:07→21:18)
[2018-08-18] MEDS: Sodium Chloride 0.9% 2 ML Flush BID IV.FLUSH SCH ×2 (09:11→21:18)
[2018-08-18] MEDS: Insulin NovoLOG Aspart Correctional Sugar Inj SQ SCH ×4 (09:13→21:26)
[2018-08-18 09:36] LABS: Baso # (Auto) 0.1 th/mm3 (0.0-0.2); Baso % (Auto) 0.7 % (0.0-2.0); Eos # (Auto) 0.1 th/mm3 (0.0-0.4); Eos % (Auto) 1.1 % (0.0-4.0); Hematocrit 28.5 % (35.0-46.0); Hemoglobin 9.8 gm/dL (11.6-15.3); Lymph # (Auto) 1.1 th/mm3 (1.0-4.8); Lymph % (Auto) 9.7 % (9.0-44.0); Mean Corpuscular HGB Conc 34.2 % (32.0-36.0); Mean Corpuscular Hemoglobin 30.5 pg (27.0-34.0); Mean Corpuscular Volume 89.2 fL (80.0-100.0); Mean Platelet Volume 8.5 fL (7.0-11.0); Mono # (Auto) 0.7 th/mm3 (0.0-0.9); Mono % (Auto) 6.2 % (0.0-8.0); Neut # (Auto) 9.1 th/mm3 (1.8-7.7); Neut % (Auto) 82.3 % (16.0-70.0); Platelet Count 305 th/mm3 (150-450); Red Cell Distribution Width 15.1 % (11.6-17.2); White Blood Count 11.1 th/mm3 (4.0-11.0)
[2018-08-18 10:18] LABS: Calcium 8.2 mg/dL (8.5-10.1); Carbon Dioxide 25.9 meq/L (21.0-32.0); Magnesium 1.4 mg/dL (1.5-2.5); Potassium 3.5 meq/L (3.5-5.1)
[2018-08-18] MEDS ORDERED: Mag Sulf 1 gm/100 ml Premix 100 ML IV.SIG ONE (15:00)
--- NOTE | 2018-08-18 17:07 | P.PN ---
Subjective Interval history: Patient is seen lying quietly in bed. She denies any chest pain or shortness of breath. No fever or chills. No nausea vomiting or diarrhea. She tells me that she misses her dog. Nursing reports no adverse events. Physical Exam Vital signs: Vital Signs 08/17/18 20:00 08/18/18 00:00 08/18/18 04:00 Temperature 98.3 F 97.7 F 98.2 F Pulse Rate 50 L 69 68 Respiratory Rate 18 17 18 Blood Pressure 158/73 H 160/58 H 144/62 H Pulse Oximetry 97 96 100 08/18/18 04:04 08/18/18 06:23 08/18/18 07:42 Temperature 98.2 F 98.8 F Pulse Rate 60 56 L 59 L Respiratory Rate 17 18 Blood Pressure 164/70 H 188/78 H Pulse Oximetry 100 95 08/18/18 08:00 08/18/18 12:00 08/18/18 15:54 Temperature 98.8 F 98.3 F Pulse Rate 59 L 79 76 Respiratory Rate 18 16 Blood Pressure 179/76 H 172/80 H Pulse Oximetry 96 96 Intake & Output 08/17/18 08/18/18 08/18/18 18:59 06:59 18:59 Intake Total 200 / 200 100 / 100 100 / 100 Output Total 1000 / 1000 Balance 200 / 200 100 / 100 -900 / -900 Intake: IV 200 / 200 100 / 100 100 / 100 Azactam Inj 1,000 MG In NS Inj 200 / 200 100 / 100 100 / 100 100 ML @ 200 mls/hr IV.SIG Q8H [facility] Rx#:[id number] Output: Urine 1000 / 1000 Other: Date of Last Bowel Movement 08/16/18 Narrative: GENERAL: Pleasant elderly white female in no acute distress SKIN: Focused skin assessment warm and dry. Stage II sacral decub with surrounding erythema CARDIOVASCULAR: Regular rate and rhythm. No chest tenderness to palpation. RESPIRATORY: No obvious rhonchi or wheezing. Clear to auscultation. Breath sounds equal bilaterally. GASTROINTESTINAL: Abdomen soft, non-tender, nondistended. BS normal. MUSCULOSKELETAL: Extremities without clubbing, cyanosis, or edema. No obvious deformities. NEUROLOGICAL: Awake, alert and oriented to person/place. No focal neurologic deficits. Decreased range of motion right upper extremity - Urinary Catheter Management Female External Cath placed during this visit: no Results - Labs CBC & Chem 7: 08/18/18 09:12 08/18/18 09:12 Laboratory Results - last 24 hr 08/17/18 08/17/18 08/17/18 19:36 20:22 23:02 WBC RBC Hgb Hct MCV MCH MCHC RDW Plt Count MPV Neut % (Auto) Lymph % (Auto) [place] % (Auto) Eos % (Auto) Baso % (Auto) Neut # (Auto) Lymph # (Auto) [place] # (Auto) Eos # (Auto) Baso # (Auto) WBC Differential Differential Comment Sodium Potassium Chloride Carbon Dioxide Anion Gap BUN Creatinine Estimated GFR POC Glucose 69 79 65 L Random Glucose Calcium Magnesium 08/17/18 08/18/18 08/18/18 23:55 06:37 08:24 WBC RBC Hgb Hct MCV MCH MCHC RDW Plt Count MPV Neut % (Auto) Lymph % (Auto) [place] % (Auto) Eos % (Auto) Baso % (Auto) Neut # (Auto) Lymph # (Auto) [place] # (Auto) Eos # (Auto) Baso # (Auto) WBC Differential Differential Comment Sodium Potassium Chloride Carbon Dioxide Anion Gap BUN Creatinine Estimated GFR POC Glucose 93 88 92 Random Glucose Calcium Magnesium 08/18/18 08/18/18 08/18/18 09:12 09:12 12:39 WBC 11.1 H RBC 3.20 L Hgb 9.8 L Hct 28.5 L MCV 89.2 MCH 30.5 MCHC 34.2 RDW 15.1 Plt Count 305 MPV 8.5 Neut % (Auto) 82.3 H Lymph % (Auto) 9.7 [place] % (Auto) 6.2 Eos % (Auto) 1.1 Baso % (Auto) 0.7 Neut # (Auto) 9.1 H Lymph # (Auto) 1.1 [place] # (Auto) 0.7 Eos # (Auto) 0.1 Baso # (Auto) 0.1 WBC Differential . Differential Comment Auto diff final Sodium 131 L Potassium 3.5 Chloride 97 L Carbon Dioxide 25.9 Anion Gap 8 BUN 15 Creatinine 0.73 Estimated GFR 78 L POC Glucose 113 H Random Glucose 287 H Calcium 8.2 L Magnesium 1.4 L - Procedures none Assessment and Plan - Assessment (1) Syncope Code(s): R55 - Syncope and collapse Status: Acute (2) Symptomatic bradycardia Code(s): R00.1 - Bradycardia, unspecified Status: Acute (3) UTI (urinary tract infection) Code(s): N39.0 - Urinary tract infection, site not specified Status: Acute (4) DM (diabetes mellitus) Code(s): E11.9 - Type 2 diabetes mellitus without complications Status: Acute (5) Elevated troponin Code(s): R74.8 - Abnormal levels of other serum enzymes Status: Acute (6) HTN (hypertension) Code(s): I10 - Essential (primary) hypertension Status: Acute - Plan 1. Syncope: suspected syncopal event, pt w/ unwitnessed fall, recent admit -07/27 for similar fall w/ prox humerus fx and d/c'd home from [facility]. CT Head w/ no acute findings, images reviewed. Neurologically intact and stable. PT for eval/tx recommends rehab, Case Management for placement. 2. Bradycardia: Symptomatic. HR 40's while in ER, s/p Clonidine in ER for BP , will avoid Clonidine or B-Sebastian in light of bradycardia. Echo w/ EF 50% Per cardiology may need pacemaker but patient's son declined. Cardio has signed off. 3. Elevated Trop: This is flat no c/o chest pain, no acute EKG changes, possibly due to uncontrolled HTN, BP 230's on arrival, will place on telemetry 4. UTI: U/a w/ UTI follow up cultures with pseudomonas aeruginosa. Infected sacral wound with PSAE and GNR, switched to aztreonam August 16, 2018 based on sensitivities. Wd care consulted wound care 5. DM: Sliding scale w/ Accu-Cheks, hold Metformin for now. Hypoglycemia secondary to poor oral intake. Hypoglycemia protocol. Switch to regular diet for now 6. DVT Prophylaxis: SCD/Teds, SQ heparin Discharge Planning: Dw UR, does not meet inpatient status. Needs rehab per PT, case management consult. Needs IV aztreonam til 08/24 for UTI and infected wd. If accepted by SNF may need midline (1) Syncope Qualifiers: Syncope type: unspecified Qualified Code(s): R55 - Syncope and collapse
[2018-08-18] MEDS: hydrALAZINE 25 MG Tablet PO PRN (19:19)
[2018-08-19] MEDS: Dextrose 5%/NaCl 0.45% Inj 1,000 ML IV.CONT SCH ×2 (01:55→13:24)
[2018-08-19] MEDS: Insulin NovoLOG Aspart Correctional Sugar Inj SQ SCH ×4 (09:02→20:54)
[2018-08-19] MEDS: Heparin - SQ 10,000 UNITS/ML Vial SQ SCH ×2 (09:06→20:55)
[2018-08-19] MEDS: Sodium Chloride 0.9% 2 ML Flush BID IV.FLUSH SCH ×2 (09:06→21:45)
[2018-08-19] MEDS: hydroCHLOROthiazide 25 MG Tablet PO SCH (09:06)
[2018-08-19] MEDS: amLODIPine 10 MG Tablet PO SCH (09:06)
[2018-08-19] MEDS: Senna/Docusate Sodium 8.6/50 MG Tablet PO SCH ×2 (09:07→20:55)
[2018-08-19] MEDS: Lisinopril 10 MG Tablet PO SCH ×2 (09:07→21:35)
[2018-08-19] MEDS: Collagenase Oint 30 GM Tube TOPICAL SCH (16:01)
--- NOTE | 2018-08-19 16:02 | P.PN ---
Subjective Interval history: Patient is seen lying quietly in bed. No new complaints or concerns. Nursing reports no adverse events. Physical Exam Vital signs: Vital Signs 08/18/18 20:00 08/19/18 00:00 08/19/18 04:00 Temperature 97.8 F 99.4 F 98.7 F Pulse Rate 93 H 78 75 Respiratory Rate 16 16 16 Blood Pressure 170/75 H 155/72 H 160/67 H Pulse Oximetry 94 L 95 95 08/19/18 07:49 08/19/18 12:28 08/19/18 12:54 Temperature 97.9 F 98.0 F Pulse Rate 74 80 72 Respiratory Rate 18 18 Blood Pressure 165/72 H 153/68 H Pulse Oximetry 94 L 95 08/19/18 15:49 Temperature 98.3 F Pulse Rate 76 Respiratory Rate 18 Blood Pressure 183/73 H Pulse Oximetry 95 Intake & Output 08/18/18 08/19/18 08/19/18 18:59 06:59 18:59 Intake Total 100 / 100 1300 / 1300 1100 / 1100 Output Total 1000 / 1000 Balance -900 / -900 1300 / 1300 1100 / 1100 Intake: IV 100 / 100 1300 / 1300 1100 / 1100 D5W/1/2 NS Inj 1,000 ML @ 42 1000 / 1000 1000 / 1000 mls/hr IV.CONT .[id number] [facility] Rx# :[id number] Azactam Inj 1,000 MG In NS Inj 100 / 100 200 / 200 100 / 100 100 ML @ 200 mls/hr IV.SIG Q8H [facility] Rx#:[id number] Magnesium Sulfate 1 gm/D5W 100 100 / 100 ml Premix 100 ML @ 100 mls/hr IV.SIG ONCE ONE Rx#:[id number] Output: Urine 1000 / 1000 Other: Date of Last Bowel Movement 08/16/18 Narrative: GENERAL: Pleasant elderly white female in no acute distress SKIN: Focused skin assessment warm and dry. Stage II sacral decub with surrounding erythema CARDIOVASCULAR: Regular rate and rhythm. No chest tenderness to palpation. RESPIRATORY: No obvious rhonchi or wheezing. Clear to auscultation. Breath sounds equal bilaterally. GASTROINTESTINAL: Abdomen soft, non-tender, nondistended. BS normal. MUSCULOSKELETAL: Extremities without clubbing, cyanosis, or edema. No obvious deformities. NEUROLOGICAL: Awake, alert and oriented to person/place. No focal neurologic deficits. Decreased range of motion right upper extremity - Urinary Catheter Management Female External Cath placed during this visit: no Results - Labs CBC & Chem 7: 08/18/18 09:12 08/18/18 09:12 Laboratory Results - last 24 hr 08/18/18 08/18/18 08/19/18 17:20 21:26 08:48 POC Glucose 112 H 159 H 127 H - Procedures none Assessment and Plan - Assessment (1) Syncope Code(s): R55 - Syncope and collapse Status: Acute (2) Symptomatic bradycardia Code(s): R00.1 - Bradycardia, unspecified Status: Acute (3) UTI (urinary tract infection) Code(s): N39.0 - Urinary tract infection, site not specified Status: Acute (4) DM (diabetes mellitus) Code(s): E11.9 - Type 2 diabetes mellitus without complications Status: Acute (5) Elevated troponin Code(s): R74.8 - Abnormal levels of other serum enzymes Status: Acute (6) HTN (hypertension) Code(s): I10 - Essential (primary) hypertension Status: Acute - Plan 1. Syncope: suspected syncopal event, pt w/ unwitnessed fall, recent admit -07/27 for similar fall w/ prox humerus fx and d/c'd home from [facility]. CT Head w/ no acute findings, images reviewed. Neurologically intact and stable. PT for eval/tx recommends rehab, Case Management for placement. 2. Bradycardia: Symptomatic. HR 40's while in ER, s/p Clonidine in ER for BP , will avoid Clonidine or B-Sebastian in light of bradycardia. Echo w/ EF 50% Per cardiology may need pacemaker but patient's son declined. Cardio has signed off. 3. Elevated Trop: This is flat no c/o chest pain, no acute EKG changes, possibly due to uncontrolled HTN, BP 230's on arrival, will place on telemetry 4. UTI: U/a w/ UTI follow up cultures with pseudomonas aeruginosa. Infected sacral wound with PSAE and GNR, switched to aztreonam August 16, 2018 based on sensitivities. Wd care consulted wound care -recommending Santyl. 5. DM: Sliding scale w/ Accu-Cheks, hold Metformin for now. Hypoglycemia secondary to poor oral intake. Hypoglycemia protocol. Switch to regular diet for now 6. DVT Prophylaxis: SCD/Teds, SQ heparin Discharge Planning: Dw UR, does not meet inpatient status. Needs rehab per PT, case management consult. Needs IV aztreonam til 08/24 for UTI and infected wd. If accepted by SNF may need midline (1) Syncope Qualifiers: Syncope type: unspecified Qualified Code(s): R55 - Syncope and collapse
--- NOTE | 2018-08-19 16:05 | P.PNWCN ---
Wound Care Nurse Consult Description: Received pressure ulcer consult for sacral area from Doctor Lily Communicated with: LINN Ariza and DAJA Veloz Recommendation: 1.Please cleanse wound to the sacral area with normal saline only and pat dry 2. Apply Santyl ointment walker thickness to wound bed with saline moistened 2x2 fluffed gauze applied to wound bed and avoiding intact skin to periwound 3. Cover wound with bordered gauze and change daily 4. 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 Wound/Pressure Injury - Wound Sacrum Wound Staging: Unstageable Wound Assessment: Ongoing Wound Type: Pressure Injury Is This a Chronic Wound: No Requested from Provider a Wound Care Consult: Yes (Patient seen by wound care today) Length (cm): 3 (~3cm) Width (cm): 7 (~7cm) Depth (cm): 0 (slough) Wound Bed Appearance: Yellow Wound Bed Appearance: Wound bed presents with 100% yellow moist adherent slough Surrounding Tissue Appearance: [place] Surrounding Tissue Temperature: Cool Drainage Description: Serosanguinous Drainage Amount: Scant Drainage Odor: No Odor Dressing Status: Reinforced Cover Dressing: optifoam gentle sacral Wound Margin Description: Well defined - Additional Information Patient seen in CDU for possible pressure injury to sacral area. Patient was turned toward the L side with the maximum assistance of Nehal ESTEVES CDU and entry writer. Sacral optifoam dressing is noted in place to buttock area. Peeled back dressing to reveal unstageable pressure injury to sacral area. Full wound description, measurements, and recommendations are noted above. Wound bed presents with 100% yellow moist slough. Wound was cleansed with normal saline. optifoam dressing was reapplied back in place. Rn to change dressing when Santyl and supplies are available.
[2018-08-19] MEDS: Sodium Chloride 0.9% 2 ML Flush PRN IV.FLUSH (20:56)
[2018-08-20] MEDS: hydrALAZINE 25 MG Tablet PO PRN (00:27)
[2018-08-20] MEDS: Dextrose 5%/NaCl 0.45% Inj 1,000 ML IV.CONT SCH (00:29)
[2018-08-20] MEDS: Insulin NovoLOG Aspart Correctional Sugar Inj SQ SCH ×4 (08:29→20:40)
[2018-08-20] MEDS: hydroCHLOROthiazide 25 MG Tablet PO SCH (10:23)
[2018-08-20] MEDS: Senna/Docusate Sodium 8.6/50 MG Tablet PO SCH ×2 (10:24→20:36)
[2018-08-20] MEDS: Lisinopril 10 MG Tablet PO SCH ×2 (10:24→22:00)
[2018-08-20] MEDS: amLODIPine 10 MG Tablet PO SCH (10:24)
[2018-08-20] MEDS: Heparin - SQ 10,000 UNITS/ML Vial SQ SCH ×2 (10:24→20:35)
[2018-08-20] MEDS: Sodium Chloride 0.9% 2 ML Flush BID IV.FLUSH SCH ×2 (10:25→20:36)
[2018-08-20] MEDS: Collagenase Oint 30 GM Tube TOPICAL SCH (15:55)
--- NOTE | 2018-08-20 18:34 | P.PN ---
Subjective Interval history: Patient is seen lying in bed. She once again did not eat breakfast. Says she is just not hungry. Tells me that she would drink Ensure if it was provided on her tray. No new complaints or concerns. Nursing reports no adverse event. Physical Exam Vital signs: Vital Signs 08/19/18 20:00 08/19/18 21:00 08/20/18 00:00 Temperature 98.8 F 98.3 F Pulse Rate 73 71 73 Respiratory Rate 16 16 Blood Pressure 194/82 H 207/86 H Pulse Oximetry 96 94 L 08/20/18 04:00 08/20/18 05:32 08/20/18 07:36 Temperature 98.1 F 98.0 F Pulse Rate 82 60 75 Respiratory Rate 16 16 19 Blood Pressure 197/85 H 153/69 H 171/70 H Pulse Oximetry 97 96 97 08/20/18 10:15 08/20/18 11:17 08/20/18 15:26 Temperature 98.2 F 98.2 F Pulse Rate 56 L 65 69 Respiratory Rate 16 16 Blood Pressure 150/70 H 167/72 H Pulse Oximetry 94 L 95 Intake & Output 08/19/18 08/20/18 08/20/18 18:59 06:59 18:59 Intake Total 2123 / 2123 1100 / 1100 160 / 160 Balance 212 / 212 1100 / 1100 160 / 160 Intake: IV 1200 / 1200 1100 / 1100 100 / 100 D5W/1/2 NS Inj 1,000 ML @ 42 1000 / 1000 1000 / 1000 mls/hr IV.CONT .[id number] [facility] Rx# :[id number] Azactam Inj 1,000 MG In NS Inj 200 / 200 100 / 100 100 / 100 100 ML @ 200 mls/hr IV.SIG Q8H [facility] Rx#:[id number] Oral 420 / 420 60 / 60 Other 504 / 504 Other: Other Intake Source Saline Solution # Voids 3 # Urine Diapers 3 Date of Last Bowel Movement 08/16/18 08/16/18 Narrative: GENERAL: Pleasant elderly white female in no acute distress SKIN: Focused skin assessment warm and dry. Stage II sacral decub with surrounding erythema CARDIOVASCULAR: Regular rate and rhythm. No chest tenderness to palpation. RESPIRATORY: No obvious rhonchi or wheezing. Clear to auscultation. Breath sounds equal bilaterally. GASTROINTESTINAL: Abdomen soft, non-tender, nondistended. BS normal. MUSCULOSKELETAL: Extremities without clubbing, cyanosis, or edema. No obvious deformities. NEUROLOGICAL: Awake, alert and oriented to person/place. No focal neurologic deficits. Decreased range of motion right upper extremity - Urinary Catheter Management Female External Cath placed during this visit: no Results - Labs CBC & Chem 7: 08/18/18 09:12 08/18/18 09:12 Laboratory Results - last 24 hr 08/19/18 08/20/18 08/20/18 20:48 08:26 12:20 POC Glucose 111 H 114 H 117 H 08/20/18 17:18 POC Glucose 140 H - Procedures none Assessment and Plan - Assessment (1) Syncope Code(s): R55 - Syncope and collapse Status: Acute (2) Symptomatic bradycardia Code(s): R00.1 - Bradycardia, unspecified Status: Acute (3) UTI (urinary tract infection) Code(s): N39.0 - Urinary tract infection, site not specified Status: Acute (4) DM (diabetes mellitus) Code(s): E11.9 - Type 2 diabetes mellitus without complications Status: Acute (5) Elevated troponin Code(s): R74.8 - Abnormal levels of other serum enzymes Status: Acute (6) HTN (hypertension) Code(s): I10 - Essential (primary) hypertension Status: Acute - Plan 1. Syncope: suspected syncopal event, pt w/ unwitnessed fall, recent admit -07/27 for similar fall w/ prox humerus fx and d/c'd home from [facility]. CT Head w/ no acute findings, images reviewed. Neurologically intact and stable. PT for eval/tx recommends rehab, Case Management for placement. 2. Bradycardia: Symptomatic. HR 40's while in ER, s/p Clonidine in ER for BP , will avoid Clonidine or B-Sebastian in light of bradycardia. Echo w/ EF 50% Per cardiology may need pacemaker but patient's son declined. Cardio has signed off. 3. Elevated Trop: This is flat no c/o chest pain, no acute EKG changes, possibly due to uncontrolled HTN, BP 230's on arrival, will place on telemetry 4. UTI: U/a w/ UTI follow up cultures with pseudomonas aeruginosa. Infected sacral wound with PSAE and GNR, switched to aztreonam August 16, 2018 based on sensitivities. Wd care consulted wound care -recommending Santyl. 5. DM: Sliding scale w/ Accu-Cheks, hold Metformin for now. Hypoglycemia secondary to poor oral intake. Hypoglycemia protocol. Switch to regular diet for now 6. DVT Prophylaxis: SCD/Teds, SQ heparin Discharge Planning: Dw UR, does not meet inpatient status. Needs rehab per PT, case management consult. Needs IV aztreonam til 08/24 for UTI and infected wd. If accepted by SNF may need midline (1) Syncope Qualifiers: Syncope type: unspecified Qualified Code(s): R55 - Syncope and collapse
[2018-08-21] MEDS: Dextrose 5%/NaCl 0.45% Inj 1,000 ML IV.CONT SCH (02:20)
[2018-08-21] MEDS: hydrALAZINE 25 MG Tablet PO PRN (02:21)
[2018-08-21] MEDS: Insulin NovoLOG Aspart Correctional Sugar Inj SQ SCH ×4 (09:05→20:07)
[2018-08-21] MEDS: amLODIPine 10 MG Tablet PO SCH (09:06)
[2018-08-21] MEDS: Lisinopril 10 MG Tablet PO SCH ×2 (09:06→20:46)
[2018-08-21] MEDS: hydroCHLOROthiazide 25 MG Tablet PO SCH (09:07)
[2018-08-21] MEDS: Sodium Chloride 0.9% 2 ML Flush BID IV.FLUSH SCH ×2 (09:08→22:33)
[2018-08-21] MEDS: Senna/Docusate Sodium 8.6/50 MG Tablet PO SCH ×2 (09:08→20:45)
[2018-08-21] MEDS: Heparin - SQ 10,000 UNITS/ML Vial SQ SCH ×2 (09:09→20:45)
--- NOTE | 2018-08-21 10:12 | P.PN ---
Subjective Interval history: Patient is seen lying quietly in bed. Nursing is at bedside as well. Nursing reports no adverse events. Patient continues to have very little appetite. No other complaints. Physical Exam Vital signs: Vital Signs 08/20/18 10:15 08/20/18 11:17 08/20/18 15:26 Temperature 98.2 F 98.2 F Pulse Rate 56 L 65 69 Respiratory Rate 16 16 Blood Pressure 150/70 H 167/72 H Pulse Oximetry 94 L 95 08/20/18 20:00 08/21/18 00:00 08/21/18 02:16 Temperature 98.9 F Pulse Rate 83 58 L 63 Respiratory Rate 16 18 18 Blood Pressure 167/73 H 172/89 H 178/76 H Pulse Oximetry 99 95 96 08/21/18 03:49 08/21/18 07:40 Temperature 98 F 98.4 F Pulse Rate 75 62 Respiratory Rate 18 12 Blood Pressure 160/58 H 161/72 H Pulse Oximetry 97 95 Intake & Output 08/20/18 08/21/18 08/21/18 18:59 06:59 18:59 Intake Total 260 / 260 1160 / 1160 100 / 100 Balance 260 / 260 1160 / 1160 100 / 100 Intake: IV 200 / 200 1100 / 1100 100 / 100 D5W/1/2 NS Inj 1,000 ML @ 42 1000 / 1000 mls/hr IV.CONT .[id number] [facility] Rx# :[id number] Azactam Inj 1,000 MG In NS Inj 200 / 200 100 / 100 100 / 100 100 ML @ 200 mls/hr IV.SIG Q8H [facility] Rx#:[id number] Oral 60 / 60 60 / 60 Other: # Urine Diapers 3 3 Date of Last Bowel Movement 08/16/18 08/16/18 Narrative: GENERAL: Pleasant elderly white female in no acute distress SKIN: Focused skin assessment warm and dry. Stage II sacral decub with surrounding erythema -dressing in place. CARDIOVASCULAR: Regular rate and rhythm. No chest tenderness to palpation. RESPIRATORY: No obvious rhonchi or wheezing. Clear to auscultation. Breath sounds equal bilaterally. GASTROINTESTINAL: Abdomen soft, non-tender, nondistended. BS normal. MUSCULOSKELETAL: Extremities without clubbing, cyanosis, or edema. No obvious deformities. NEUROLOGICAL: Awake, alert and oriented to person/place. No focal neurologic deficits. Decreased range of motion right upper extremity - Urinary Catheter Management Female External Cath placed during this visit: no Results - Labs CBC & Chem 7: 08/18/18 09:12 08/18/18 09:12 Laboratory Results - last 24 hr 08/20/18 08/20/18 08/20/18 12:20 17:18 19:59 POC Glucose 117 H 140 H 118 H 08/21/18 07:53 POC Glucose 108 - Procedures none Assessment and Plan - Assessment (1) Syncope Code(s): R55 - Syncope and collapse Status: Acute (2) Symptomatic bradycardia Code(s): R00.1 - Bradycardia, unspecified Status: Acute (3) UTI (urinary tract infection) Code(s): N39.0 - Urinary tract infection, site not specified Status: Acute (4) DM (diabetes mellitus) Code(s): E11.9 - Type 2 diabetes mellitus without complications Status: Acute (5) Elevated troponin Code(s): R74.8 - Abnormal levels of other serum enzymes Status: Acute (6) HTN (hypertension) Code(s): I10 - Essential (primary) hypertension Status: Acute - Plan 1. Syncope: suspected syncopal event, pt w/ unwitnessed fall, recent admit -07/27 for similar fall w/ prox humerus fx and d/c'd home from [facility]. CT Head w/ no acute findings, images reviewed. Neurologically intact and stable. PT for eval/tx recommends rehab, Case Management for placement. 2. Bradycardia: Symptomatic. HR 40's while in ER, s/p Clonidine in ER for BP , will avoid Clonidine or B-Sebastian in light of bradycardia. Echo w/ EF 50% Per cardiology may need pacemaker but patient's son declined. Cardio has signed off. 3. Elevated Trop: This is flat no c/o chest pain, no acute EKG changes, possibly due to uncontrolled HTN, BP 230's on arrival, will place on telemetry 4. UTI: U/a w/ UTI follow up cultures with pseudomonas aeruginosa. Infected sacral wound with PSAE and GNR, switched to aztreonam August 16, 2018 based on sensitivities. 5. DM: Sliding scale w/ Accu-Cheks, hold Metformin for now. Hypoglycemia secondary to poor oral intake. Hypoglycemia protocol. Switch to regular diet for now 6. Sacral Decub: Wd care consulted wound care -recommending Santyl. DVT Prophylaxis: SCD/Teds, SQ heparin Discharge Planning: Dw UR, does not meet inpatient status. Needs rehab per PT, case management consult. Needs IV aztreonam til 08/24 for UTI and infected wd. If accepted by SNF may need midline (1) Syncope Qualifiers: Syncope type: unspecified Qualified Code(s): R55 - Syncope and collapse
[2018-08-21] MEDS: Collagenase Oint 30 GM Tube TOPICAL SCH (13:29)
[2018-08-21] MEDS: Sodium Chloride 0.9% 2 ML Flush PRN IV.FLUSH (23:48)
[2018-08-22] MEDS: Dextrose 5%/NaCl 0.45% Inj 1,000 ML IV.CONT SCH (00:58)
[2018-08-22] MEDS: hydrALAZINE 25 MG Tablet PO PRN (05:14)
[2018-08-22] MEDS: Lisinopril 10 MG Tablet PO SCH ×2 (09:41→21:36)
[2018-08-22] MEDS: hydroCHLOROthiazide 25 MG Tablet PO SCH (09:41)
[2018-08-22] MEDS: Heparin - SQ 10,000 UNITS/ML Vial SQ SCH ×2 (09:41→21:34)
[2018-08-22] MEDS: amLODIPine 10 MG Tablet PO SCH (09:41)
[2018-08-22] MEDS: Senna/Docusate Sodium 8.6/50 MG Tablet PO SCH ×2 (09:51→21:35)
[2018-08-22] MEDS: Insulin NovoLOG Aspart Correctional Sugar Inj SQ SCH ×4 (09:51→22:15)
[2018-08-22] MEDS: Sodium Chloride 0.9% 2 ML Flush BID IV.FLUSH SCH ×2 (09:51→21:52)
--- NOTE | 2018-08-22 16:11 | P.PN ---
Subjective Interval history: Patient seen lying quietly in bed. She did try to eat more for breakfast this morning and is drinking her Ensure shakes. No chest pain or shortness of breath. No fevers or chills. No nausea vomiting or diarrhea. Nursing reports no adverse events. Physical Exam Vital signs: Vital Signs 08/21/18 19:47 08/21/18 20:00 08/21/18 23:26 Temperature 98.4 F 98.7 F Pulse Rate 75 80 72 Respiratory Rate 16 20 Blood Pressure 170/74 H Pulse Oximetry 97 98 08/22/18 00:00 08/22/18 03:53 08/22/18 07:41 Temperature 98.1 F 98.6 F Pulse Rate 56 L 68 Respiratory Rate 18 20 Blood Pressure 182/91 H 172/77 H 136/81 Pulse Oximetry 98 97 08/22/18 11:35 Temperature 98.5 F Pulse Rate 79 Respiratory Rate 20 Blood Pressure 170/74 H Pulse Oximetry 98 Intake & Output 08/21/18 08/22/18 08/22/18 18:59 06:59 18:59 Intake Total 100 / 100 200 / 200 100 / 100 Balance 100 / 100 200 / 200 100 / 100 Intake: IV 100 / 100 200 / 200 100 / 100 Azactam Inj 1,000 MG In NS Inj 100 / 100 200 / 200 100 / 100 100 ML @ 200 mls/hr IV.SIG Q8H [facility] Rx#:[id number] Other: # Voids 0 Date of Last Bowel Movement 08/21/18 08/21/18 # Bowel Movements 1 Narrative: GENERAL: Pleasant elderly white female in no acute distress SKIN: Focused skin assessment warm and dry. Stage II sacral decub with surrounding erythema -dressing in place. CARDIOVASCULAR: Regular rate and rhythm. RESPIRATORY: No obvious rhonchi or wheezing. Clear to auscultation. Breath sounds equal bilaterally. GASTROINTESTINAL: Abdomen soft, non-tender, nondistended. BS normal. MUSCULOSKELETAL: Extremities without clubbing, cyanosis, or edema. No obvious deformities. NEUROLOGICAL: Awake, alert and oriented to person/place. No focal neurologic deficits. - Urinary Catheter Management Female External Cath placed during this visit: no Results - Labs CBC & Chem 7: 08/18/18 09:12 08/18/18 09:12 Laboratory Results - last 24 hr 08/21/18 08/21/18 08/22/18 18:24 19:58 08:28 POC Glucose 114 H 140 H 102 08/22/18 13:05 POC Glucose 127 H - Procedures none Assessment and Plan - Assessment (1) Syncope Code(s): R55 - Syncope and collapse Status: Resolved (2) Symptomatic bradycardia Code(s): R00.1 - Bradycardia, unspecified Status: Resolved (3) UTI (urinary tract infection) Code(s): N39.0 - Urinary tract infection, site not specified Status: Acute (4) DM (diabetes mellitus) Code(s): E11.9 - Type 2 diabetes mellitus without complications Status: Chronic (5) Elevated troponin Code(s): R74.8 - Abnormal levels of other serum enzymes Status: Resolved (6) HTN (hypertension) Code(s): I10 - Essential (primary) hypertension Status: Chronic - Plan 1. Syncope: suspected syncopal event, pt w/ unwitnessed fall, recent admit -07/27 for similar fall w/ prox humerus fx and d/c'd home from [facility]. CT Head w/ no acute findings, images reviewed. Neurologically intact and stable. PT for eval/tx recommends rehab, Case Management for placement. No repeat events. 2. Bradycardia: Symptomatic. HR 40's while in ER, s/p Clonidine in ER for BP , will avoid Clonidine or B-Sebastian in light of bradycardia. Echo w/ EF 50% Per cardiology may need pacemaker but patient's son declined. Cardio has signed off. 3. Elevated Trop: This is flat no c/o chest pain, no acute EKG changes, possibly due to uncontrolled HTN, BP 230's on arrival, on telemetry 4. UTI: U/a w/ UTI follow up cultures with pseudomonas aeruginosa. Infected sacral wound with PSAE and GNR, switched to aztreonam August 16, 2018 based on sensitivities. 5. DM: Sliding scale w/ Accu-Cheks, hold Metformin for now. Hypoglycemia secondary to poor oral intake. Hypoglycemia protocol. Switch to regular diet for now 6. Sacral Decub: Wd care consulted wound care -recommending Santyl. DVT Prophylaxis: SCD/Teds, SQ heparin Discharge Planning: Dw UR, does not meet inpatient status. Needs rehab per PT, case management consult. Needs IV aztreonam til 08/24 for UTI and infected wd. If accepted by SNF may need midline (1) Syncope Qualifiers: Syncope type: unspecified Qualified Code(s): R55 - Syncope and collapse
[2018-08-22] MEDS: Collagenase Oint 30 GM Tube TOPICAL SCH (18:20)
[2018-08-23] MEDS: Dextrose 5%/NaCl 0.45% Inj 1,000 ML IV.CONT SCH ×2 (00:15→22:54)
[2018-08-23 07:26] LABS: Baso % (Auto) 0.4 % (0.0-2.0); Eos # (Auto) 0.1 th/mm3 (0.0-0.4); Eos % (Auto) 1.2 % (0.0-4.0); Hematocrit 27.3 % (35.0-46.0); Hemoglobin 9.5 gm/dL (11.6-15.3); Lymph # (Auto) 1.9 th/mm3 (1.0-4.8); Mean Corpuscular HGB Conc 34.9 % (32.0-36.0); Mean Corpuscular Hemoglobin 30.9 pg (27.0-34.0); Mean Corpuscular Volume 88.6 fL (80.0-100.0); Mean Platelet Volume 7.6 fL (7.0-11.0); Mono # (Auto) 0.8 th/mm3 (0.0-0.9); Mono % (Auto) 7.5 % (0.0-8.0); Neut # (Auto) 8.3 th/mm3 (1.8-7.7); Neut % (Auto) 73.9 % (16.0-70.0); Platelet Count 357 th/mm3 (150-450); Red Blood Count 3.09 mil/mm3 (4.00-5.30); Red Cell Distribution Width 15.1 % (11.6-17.2); White Blood Count 11.2 th/mm3 (4.0-11.0)
[2018-08-23 07:42] LABS: Calcium 8.5 mg/dL (8.5-10.1); Carbon Dioxide 27.7 meq/L (21.0-32.0)
[2018-08-23 08:50] LABS: Platelet Estimate Normal (Normal); Platelet Morphology Clumped (Normal)
[2018-08-23] MEDS: Insulin NovoLOG Aspart Correctional Sugar Inj SQ SCH ×4 (09:01→22:54)
[2018-08-23] MEDS: amLODIPine 10 MG Tablet PO SCH (09:02)
[2018-08-23] MEDS: Collagenase Oint 30 GM Tube TOPICAL SCH (09:02)
[2018-08-23] MEDS: hydroCHLOROthiazide 25 MG Tablet PO SCH (09:02)
[2018-08-23] MEDS: Senna/Docusate Sodium 8.6/50 MG Tablet PO SCH ×2 (09:03→20:06)
[2018-08-23] MEDS: Lisinopril 10 MG Tablet PO SCH ×2 (09:03→20:18)
[2018-08-23] MEDS: Heparin - SQ 10,000 UNITS/ML Vial SQ SCH ×2 (09:04→20:18)
[2018-08-23] MEDS: Sodium Chloride 0.9% 2 ML Flush BID IV.FLUSH SCH ×2 (09:04→20:06)
[2018-08-23 11:31] LABS: Magnesium 1.8 mg/dL (1.5-2.5)
--- NOTE | 2018-08-23 17:20 | P.PN ---
Subjective Interval history: Patient seen lying quietly in bed. She is quite happy with her chocolate and sure and has been drinking them. No fevers or chills. No nausea vomiting or diarrhea. Per nursing she has repeatedly removed IVs. She is a difficult stick and requires vascular access team each time an IV is placed. Reiterated to patient that she needs the IV for antibiotic treatment. She indicates understanding but refuses IV. Physical Exam Vital signs: Vital Signs 08/22/18 19:31 08/22/18 23:48 08/23/18 03:29 Temperature 98.4 F 98.6 F 98.4 F Pulse Rate 63 65 65 Respiratory Rate 17 17 17 Blood Pressure 139/64 132/57 L 162/71 H Pulse Oximetry 95 96 96 08/23/18 08:00 08/23/18 11:16 Temperature 98.2 F 97.9 F Pulse Rate 51 L 64 Respiratory Rate 18 18 Blood Pressure 151/70 H 138/68 Pulse Oximetry 95 96 Intake & Output 08/22/18 08/23/18 08/23/18 18:59 06:59 18:59 Intake Total 100 / 100 500 / 500 Balance 100 / 100 500 / 500 Intake: IV 100 / 100 Azactam Inj 1,000 MG In NS Inj 100 / 100 100 ML @ 200 mls/hr IV.SIG Q8H [facility] Rx#:[id number] Oral 500 / 500 Other: # Voids 0 Date of Last Bowel Movement 08/22/18 08/22/18 Narrative: GENERAL: Pleasant elderly white female in no acute distress SKIN: Focused skin assessment warm and dry. Stage II sacral decub with surrounding erythema -dressing in place. CARDIOVASCULAR: Regular rate and rhythm. RESPIRATORY: No obvious rhonchi or wheezing. Clear to auscultation. Breath sounds equal bilaterally. GASTROINTESTINAL: Abdomen soft, non-tender, nondistended. BS normal. MUSCULOSKELETAL: Extremities without clubbing, cyanosis, or edema. No obvious deformities. NEUROLOGICAL: Awake, alert and oriented to person/place. No focal neurologic deficits. - Urinary Catheter Management Female External Cath placed during this visit: no Results - Labs CBC & Chem 7: 08/23/18 06:55 08/23/18 10:25 Laboratory Results - last 24 hr 08/22/18 08/23/18 08/23/18 21:46 06:55 06:55 WBC 11.2 H RBC 3.09 L Hgb 9.5 L Hct 27.3 L MCV 88.6 MCH 30.9 MCHC 34.9 RDW 15.1 Plt Count 357 MPV 7.6 Prelim Diff (Auto) Slide review pending Neut % (Auto) 73.9 H Lymph % (Auto) 17.0 Ness % (Auto) 7.5 Eos % (Auto) 1.2 Baso % (Auto) 0.4 Neut # (Auto) 8.3 H Lymph # (Auto) 1.9 Ness # (Auto) 0.8 Eos # (Auto) 0.1 Baso # (Auto) 0.0 WBC Differential . Diff Scan Auto diff confirmed Differential Comment . Platelet Estimate Normal Platelet Morphology Clumped H Sodium 142 Potassium 3.0 L Chloride 104 Carbon Dioxide 27.7 Anion Gap 10 BUN 24 H Creatinine 0.74 Estimated GFR 77 L POC Glucose 81 Random Glucose 107 H Calcium 8.5 Magnesium 08/23/18 08/23/18 08/23/18 07:43 10:25 12:23 WBC RBC Hgb Hct MCV MCH MCHC RDW Plt Count MPV Prelim Diff (Auto) Neut % (Auto) Lymph % (Auto) Ness % (Auto) Eos % (Auto) Baso % (Auto) Neut # (Auto) Lymph # (Auto) Ness # (Auto) Eos # (Auto) Baso # (Auto) WBC Differential Diff Scan Differential Comment Platelet Estimate Platelet Morphology Sodium Potassium 3.0 L Chloride Carbon Dioxide Anion Gap BUN Creatinine Estimated GFR POC Glucose 123 H 139 H Random Glucose Calcium Magnesium 1.8 - Procedures none Assessment and Plan - Assessment (1) Syncope Code(s): R55 - Syncope and collapse Status: Resolved (2) Symptomatic bradycardia Code(s): R00.1 - Bradycardia, unspecified Status: Resolved (3) UTI (urinary tract infection) Code(s): N39.0 - Urinary tract infection, site not specified Status: Acute (4) DM (diabetes mellitus) Code(s): E11.9 - Type 2 diabetes mellitus without complications Status: Chronic (5) Elevated troponin Code(s): R74.8 - Abnormal levels of other serum enzymes Status: Resolved (6) HTN (hypertension) Code(s): I10 - Essential (primary) hypertension Status: Chronic - Plan 1. Syncope: suspected syncopal event, pt w/ unwitnessed fall, recent admit -07/27 for similar fall w/ prox humerus fx and d/c'd home from [facility]. CT Head w/ no acute findings, images reviewed. Neurologically intact and stable. PT for eval/tx recommends rehab, Case Management for placement. No repeat events. 2. Bradycardia: Symptomatic. HR 40's while in ER, s/p Clonidine in ER for BP , will avoid Clonidine or B-Sebastian in light of bradycardia. Echo w/ EF 50% Per cardiology may need pacemaker but patient's son declined. Cardio has signed off. 3. Elevated Trop: This is flat no c/o chest pain, no acute EKG changes, possibly due to uncontrolled HTN, BP 230's on arrival, on telemetry 4. UTI: U/a w/ UTI follow up cultures with pseudomonas aeruginosa. Infected sacral wound with PSAE and GNR, switched to aztreonam August 16, 2018 based on sensitivities. Antibiotics stopped 08/22/18 due to patient repeatedly removing IV. Refuses further IV. 5. DM: Sliding scale w/ Accu-Cheks, hold Metformin for now. Hypoglycemia secondary to poor oral intake. Hypoglycemia protocol. Switch to regular diet for now; add ensure 6. Sacral Decub: Wd care consulted wound care -recommending Santyl. 7. Hypokalemia: Intermittent. Replace as indicated. Monitor. DVT Prophylaxis: SCD/Teds, SQ heparin Discharge Planning: Dw UR, does not meet inpatient status. Needs rehab per PT, case management consult. Will no longer need SNF to manage antibiotics as patient is refusing IV. (1) Syncope Qualifiers: Syncope type: unspecified Qualified Code(s): R55 - Syncope and collapse
[2018-08-24 07:19] LABS: Anion Gap 8 meq/L (5-15); Blood Urea Nitrogen 29 mg/dL (7-18); Calcium 8.6 mg/dL (8.5-10.1); Chloride 105 meq/L (98-107); Glomerular Filtration Rate Greater Than 89 mL/min (>89); Glucose,Random 111 mg/dL (74-106); Potassium 3.6 meq/L (3.5-5.1); Sodium 141 meq/L (136-145)
[2018-08-24] MEDS: Lisinopril 10 MG Tablet PO SCH ×2 (08:25→20:18)
[2018-08-24] MEDS: Senna/Docusate Sodium 8.6/50 MG Tablet PO SCH ×2 (08:26→20:38)
[2018-08-24] MEDS: hydroCHLOROthiazide 25 MG Tablet PO SCH (08:26)
[2018-08-24] MEDS: amLODIPine 10 MG Tablet PO SCH (08:28)
[2018-08-24] MEDS: Sodium Chloride 0.9% 2 ML Flush BID IV.FLUSH SCH ×2 (08:30→20:18)
[2018-08-24] MEDS: Heparin - SQ 10,000 UNITS/ML Vial SQ SCH ×2 (08:34→20:18)
[2018-08-24] MEDS: Insulin NovoLOG Aspart Correctional Sugar Inj SQ SCH ×4 (09:17→20:18)
--- NOTE | 2018-08-24 10:19 | P.PN ---
Subjective Interval history: Follow up for syncope, bradycardia, UTI. The patient denies any medical complaints today. She is tolerating oral intake. Denies fevers/chills, chest pain, shortness of breath, abdominal or urinary complaints. She continues to refuse any IV placement. Physical Exam Vital signs: Vital Signs 08/23/18 11:16 08/23/18 16:00 08/23/18 20:00 Temperature 97.9 F 98.9 F 98.6 F Pulse Rate 64 80 79 Respiratory Rate 18 16 17 Blood Pressure 138/68 137/62 139/62 Pulse Oximetry 96 95 95 08/23/18 23:05 08/24/18 03:31 08/24/18 07:36 Temperature 98.5 F 98.6 F 98.6 F Pulse Rate 63 60 73 Respiratory Rate 17 17 16 Blood Pressure 189/74 H 148/72 H 165/71 H Pulse Oximetry 98 97 96 Intake & Output 08/23/18 08/24/18 08/24/18 18:59 06:59 18:59 Intake Total 600 / 600 Balance 600 / 600 Intake: Oral 600 / 600 Other: # Voids 0 # Incontinent Voids 2 Date of Last Bowel Movement 08/23/18 # Incontinent Bowel Movements 1 Narrative: GENERAL: Well-nourished, well-developed pleasant elderly female patient in [facility]. SKIN: Warm and dry. Stage II sacral decub with surrounding erythema -dressing in place, wound not visualized today. HEENT: Normocephalic. Atraumatic. Pupils equal and round. Mucous membranes pink and moist. CARDIOVASCULAR: Regular rate and rhythm. No murmur appreciated. RESPIRATORY: No accessory muscle use. Clear to auscultation. Breath sounds equal bilaterally. GASTROINTESTINAL: Abdomen soft, non-tender, nondistended. Normoactive bowel sounds x4. MUSCULOSKELETAL: No obvious deformities. Extremities without clubbing, cyanosis , or edema. NEUROLOGICAL: Awake and alert, oriented to person/place. No obvious cranial nerve deficits. Moving all extremities spontaneously. Normal speech. PSYCHIATRIC: Appropriate mood and affect; insight and judgment fair. - Urinary Catheter Management Female External Cath placed during this visit: no Results - Labs CBC & Chem 7: 08/23/18 06:55 08/24/18 06:13 Laboratory Results - last 24 hr 08/23/18 08/23/18 08/23/18 10:25 12:23 17:59 Sodium Potassium 3.0 L Chloride Carbon Dioxide Anion Gap BUN Creatinine Estimated GFR POC Glucose 139 H 348 H Random Glucose Calcium Magnesium 1.8 08/23/18 08/23/18 08/24/18 20:22 22:49 06:13 Sodium 141 Potassium 3.6 Chloride 105 Carbon Dioxide 28.0 Anion Gap 8 BUN 29 H Creatinine 0.58 Estimated GFR Greater than 89 POC Glucose 394 H 293 H Random Glucose 111 H Calcium 8.6 Magnesium 08/24/18 08:32 Sodium Potassium Chloride Carbon Dioxide Anion Gap BUN Creatinine Estimated GFR POC Glucose 130 H Random Glucose Calcium Magnesium - Imaging Chest X-Ray 08/14/18 17:07 CONCLUSION: 1. No focal consolidation. 2. Sharply marginated triangular opacity at the medial aspect of the right lung apex is presumed to be artifactual. 3. Redemonstrated right proximal humerus fracture. Head CT 08/14/18 17:12 CONCLUSION: 1. No acute findings in the brain. 2. Stable ischemic atrophy. . Sacrum and Coccyx X-Ray 08/14/18 17:12 CONCLUSION: Osteoporotic without displaced fracture. Degree of osteopenia makes detection of nondisplaced fractures difficult. - Procedures none Assessment and Plan - Assessment (1) Syncope Code(s): R55 - Syncope and collapse Status: Resolved (2) Symptomatic bradycardia Code(s): R00.1 - Bradycardia, unspecified Status: Resolved (3) UTI (urinary tract infection) Code(s): N39.0 - Urinary tract infection, site not specified Status: Acute (4) DM (diabetes mellitus) Code(s): E11.9 - Type 2 diabetes mellitus without complications Status: Chronic (5) Elevated troponin Code(s): R74.8 - Abnormal levels of other serum enzymes Status: Resolved (6) HTN (hypertension) Code(s): I10 - Essential (primary) hypertension Status: Chronic - Plan 73-year-old female with a PMH of HTN, A. fib, Dementia, h/o ICH, H/o Prox Humerus Fx and DM who was brought to the ER by EMS after suspected syncopal event. 1. Syncope: suspected syncopal event, pt w/ unwitnessed fall, recent admit -07/27 for similar fall w/ prox humerus fx and d/c'd home from [facility]. CT Head w/ no acute findings, images reviewed. Neurologically intact and stable. PT for eval/tx recommends rehab, Case Management for placement. No repeat events. 2. Bradycardia: Symptomatic. HR 40's while in ER, s/p Clonidine in ER for BP , will avoid Clonidine or B-Sebastian in light of bradycardia. Echo w/ EF 50% Per cardiology may need pacemaker but patient's son declined. Cardio has signed off. 3. Elevated Trop: This is flat no c/o chest pain, no acute EKG changes, possibly due to uncontrolled HTN, BP 230's on arrival, on telemetry 4. UTI: U/a w/ UTI follow up cultures with pseudomonas aeruginosa. Infected sacral wound with PSAE and GNR, switched to aztreonam August 16, 2018 based on sensitivities. Antibiotics stopped 08/22/18 due to patient repeatedly removing IV. Refuses further IV. 5. DM: Sliding scale w/ Accu-Cheks, hold Metformin for now. Hypoglycemia secondary to poor oral intake. Hypoglycemia protocol. Switch to regular diet for now; add ensure 6. Sacral Decubitus Ulcer: Present on admission. Wound care consulted- recommending Santyl. 7. Hypokalemia: Intermittent. Replace as indicated. Monitor. DVT Prophylaxis: SCD/Teds, SQ heparin Discharge Planning: Needs rehab per PT, case management consulted, appreciate assistance with placement. (1) Syncope Qualifiers: Syncope type: unspecified Qualified Code(s): R55 - Syncope and collapse
[2018-08-24] MEDS: Collagenase Oint 30 GM Tube TOPICAL SCH (15:00)
[2018-08-24] MEDS: Dextrose 5%/NaCl 0.45% Inj 1,000 ML IV.CONT SCH (22:44)
[2018-08-25] MEDS: Insulin NovoLOG Aspart Correctional Sugar Inj SQ SCH ×4 (07:58→20:50)
[2018-08-25] MEDS: amLODIPine 10 MG Tablet PO SCH (10:24)
[2018-08-25] MEDS: Lisinopril 10 MG Tablet PO SCH (10:24)
[2018-08-25] MEDS: Senna/Docusate Sodium 8.6/50 MG Tablet PO SCH ×2 (10:24→20:50)
[2018-08-25] MEDS: hydroCHLOROthiazide 25 MG Tablet PO SCH (10:24)
[2018-08-25] MEDS: Sodium Chloride 0.9% 2 ML Flush BID IV.FLUSH SCH ×2 (10:25→20:49)
[2018-08-25] MEDS: Heparin - SQ 10,000 UNITS/ML Vial SQ SCH ×2 (10:25→20:50)
[2018-08-25] MEDS: Collagenase Oint 30 GM Tube TOPICAL SCH (10:25)
--- NOTE | 2018-08-25 11:10 | P.PN ---
Subjective Interval history: Follow up for syncope, bradycardia, UTI. The patient is seen resting in bed. She has no medical complaints. Vital signs reviewed, BP has not been well controlled. No other concerns. Physical Exam Vital signs: Vital Signs 08/24/18 12:01 08/24/18 16:31 08/24/18 20:00 Temperature 97.7 F 98.3 F 98.5 F Pulse Rate 67 59 L 64 Respiratory Rate 16 16 18 Blood Pressure 146/65 H 151/94 H 137/65 Pulse Oximetry 97 97 95 08/24/18 20:30 08/25/18 00:00 08/25/18 04:00 Temperature 97.3 F L 98.5 F Pulse Rate 62 52 L 78 Respiratory Rate 16 22 Blood Pressure 172/72 H 165/71 H Pulse Oximetry 98 94 L 08/25/18 08:00 Temperature 97.7 F Pulse Rate 75 Respiratory Rate 16 Blood Pressure 178/78 H Pulse Oximetry 98 Intake & Output 08/24/18 08/25/18 08/25/18 18:59 06:59 18:59 Intake Total 360 / 360 Balance 360 / 360 Intake: Oral 360 / 360 Other: # Incontinent Voids 2 Date of Last Bowel Movement 08/24/18 Narrative: GENERAL: Well-nourished, well-developed pleasant elderly female patient in [facility]. SKIN: Warm and dry. Stage II sacral decub with surrounding erythema -dressing in place, wound not visualized today. HEENT: Normocephalic. Atraumatic. Pupils equal and round. Mucous membranes pink and moist. CARDIOVASCULAR: Regular rate and rhythm. No murmur appreciated. RESPIRATORY: No accessory muscle use. Clear to auscultation. Breath sounds equal bilaterally. GASTROINTESTINAL: Abdomen soft, non-tender, nondistended. Normoactive bowel sounds x4. MUSCULOSKELETAL: No obvious deformities. Extremities without clubbing, cyanosis , or edema. NEUROLOGICAL: Awake and alert, oriented to person/place. No obvious cranial nerve deficits. Moving all extremities spontaneously. Normal speech. PSYCHIATRIC: Appropriate mood and affect; insight and judgment fair. - Urinary Catheter Management Female External Cath placed during this visit: no Results - Labs CBC & Chem 7: 08/23/18 06:55 08/24/18 06:13 Laboratory Results - last 24 hr 08/24/18 08/24/18 08/24/18 12:13 17:33 20:13 POC Glucose 301 H 143 H 139 H 08/25/18 07:55 POC Glucose 142 H - Imaging Chest X-Ray 08/14/18 17:07 CONCLUSION: 1. No focal consolidation. 2. Sharply marginated triangular opacity at the medial aspect of the right lung apex is presumed to be artifactual. 3. Redemonstrated right proximal humerus fracture. Head CT 08/14/18 17:12 CONCLUSION: 1. No acute findings in the brain. 2. Stable ischemic atrophy. . Sacrum and Coccyx X-Ray 08/14/18 17:12 CONCLUSION: Osteoporotic without displaced fracture. Degree of osteopenia makes detection of nondisplaced fractures difficult. - Procedures none Assessment and Plan - Assessment (1) Syncope Code(s): R55 - Syncope and collapse Status: Resolved (2) Symptomatic bradycardia Code(s): R00.1 - Bradycardia, unspecified Status: Resolved (3) UTI (urinary tract infection) Code(s): N39.0 - Urinary tract infection, site not specified Status: Acute (4) DM (diabetes mellitus) Code(s): E11.9 - Type 2 diabetes mellitus without complications Status: Chronic (5) Elevated troponin Code(s): R74.8 - Abnormal levels of other serum enzymes Status: Resolved (6) HTN (hypertension) Code(s): I10 - Essential (primary) hypertension Status: Chronic - Plan 73-year-old female with a PMH of HTN, A. fib, Dementia, h/o ICH, H/o Prox Humerus Fx and DM who was brought to the ER by EMS after suspected syncopal event. Syncope: suspected syncopal event, pt w/ unwitnessed fall, recent admit 07/18- 07/27 for similar fall w/ prox humerus fx and d/c'd home from [facility]. CT Head w/ no acute findings, images reviewed. Neurologically intact and stable. PT for eval/tx recommends rehab, Case Management for placement. No repeat events. Bradycardia: Symptomatic. HR 40's while in ER, s/p Clonidine in ER for BP, will avoid Clonidine or B-Sebastian in light of bradycardia. Echo w/ EF 50% Per cardiology may need pacemaker but patient's son declined. Cardio has signed off. Elevated Trop: This is flat no c/o chest pain, no acute EKG changes, possibly due to uncontrolled HTN, BP 230's on arrival, on telemetry UTI: U/a w/ UTI follow up cultures with pseudomonas aeruginosa. Infected sacral wound with PSAE and GNR, switched to aztreonam August 16, 2018 based on sensitivities. Antibiotics stopped 08/22/18 due to patient repeatedly removing IV. Refuses further IV. DM: Sliding scale w/ Accu-Cheks, hold Metformin for now. Hypoglycemia secondary to poor oral intake. Hypoglycemia protocol. Switch to regular diet for now; add Glucerna. Sacral Decubitus Ulcer: Present on admission. Wound care consulted-recommending Santyl. Hypokalemia: Intermittent. Replace as indicated. Monitor. Accelerated Hypertension: BP not optimally controlled. Continued on Norvasc 10mg daily, HCTZ 25mg daily, lisinopril 10mg bid. Hydralazine prn. BP still not well controlled, increased lisinopril to 20mg bid on 08/25. Continue to monitor BP, adjust antihypertensives as needed. DVT Prophylaxis: SCD/Teds, SQ heparin Discharge Planning: Needs rehab per PT, case management consulted, appreciate assistance with placement. (1) Syncope Qualifiers: Syncope type: unspecified Qualified Code(s): R55 - Syncope and collapse
[2018-08-25] MEDS: Lisinopril 20 MG Tablet PO SCH (20:50)
[2018-08-25] MEDS: Dextrose 5%/NaCl 0.45% Inj 1,000 ML IV.CONT SCH (22:07)
[2018-08-26] MEDS: Insulin NovoLOG Aspart Correctional Sugar Inj SQ SCH ×2 (09:22→12:18)
[2018-08-26] MEDS: amLODIPine 10 MG Tablet PO SCH (09:23)
[2018-08-26] MEDS: hydroCHLOROthiazide 25 MG Tablet PO SCH (09:23)
[2018-08-26] MEDS: Lisinopril 20 MG Tablet PO SCH (09:23)
[2018-08-26] MEDS: Senna/Docusate Sodium 8.6/50 MG Tablet PO SCH (09:24)
[2018-08-26] MEDS: Sodium Chloride 0.9% 2 ML Flush BID IV.FLUSH SCH (09:24)
[2018-08-26] MEDS: Heparin - SQ 10,000 UNITS/ML Vial SQ SCH (09:24)
[2018-08-26] MEDS: Collagenase Oint 30 GM Tube TOPICAL SCH (09:25)
--- NOTE | 2018-08-26 10:26 | P.DS ---
<Alethea Kamara - Last Filed: 08/26/18 13:21> Date of admission: 08/14/18 19:52 Primary care physician: George Zuñiga MD Attending physician on discharge: Brandan Adair Anticipated date of discharge: 08/26/18 Brief History from admission: This is a 73-year-old female with a PMH of HTN, A. fib, Dementia, h/o ICH, H/o Prox Humerus Fx and DM who was brought to the ER by EMS after suspected syncopal event. Pt is poor historian, unable to obtain accurate history but she tells me she had fall today, she is unsure if she had LOC. Per EMS report, pt at home w/ son who found her sitting on tile floor. Pt denies complaints at this time except feeling tired. Recent admit 07/18-07/27/18 for fall w/ right prox humerus fx, s/p eval by Ortho, non-op w/ plans for outpatient follow up, was sent to [facility] and recently discharged home. On arrival, BP 234/102, HR 59, O2 sat 98% on RA. WBC 16. Chemistry unremarkable. Troponin 0 0.07. UA positive for UTI. CXR with no consolidation, right proximal humerus fracture. CT Head no acute findings. Sacrum X-ray osteoporotic without displaced fracture. While in ER, pt w/ HR 40's, s/p Clonidine in ER for hypertension. Patient update on day of discharge: The patient is seen resting in bed. She has no medical complaints. Vital signs reviewed, BP slightly better controlled today. No other concerns reported by RN. DS: Diagnosis - Discharge Diagnosis (1) Syncope Status: Resolved (2) Symptomatic bradycardia Status: Resolved (3) UTI (urinary tract infection) Status: Acute (4) DM (diabetes mellitus) Status: Chronic (5) Elevated troponin Status: Resolved (6) HTN (hypertension) Status: Chronic DS: Medications - Discharge Medications Prescriptions: amlodipine [Norvasc] 10 mg PO DAILY #30 tab hydrochlorothiazide 25 mg PO DAILY #30 tab lisinopril 20 mg PO BID #60 tab tramadol 50 mg PO Q4-6H PRN #10 tab PRN Reason: Acute Pain DS: Summary Hospital Course: 73-year-old female with a PMH of HTN, A. fib, Dementia, h/o ICH, H/o Prox Humerus Fx and DM who was brought to the ER by EMS after suspected syncopal event. Syncope: suspected syncopal event, pt w/ unwitnessed fall, recent admit 07/18- 07/27 for similar fall w/ prox humerus fx and [facility] Head w/ no acute findings, images reviewed. Neurologically intact and stable. PT for eval/tx recommends rehab, Case Management for placement. No repeat events. Stable for discharge. Bradycardia: Symptomatic. HR 40's while in ER, s/p Clonidine in ER for BP, will avoid Clonidine or B-Sebastian in light of bradycardia. Echo w/ EF 50% Per cardiology may need pacemaker but patient's son declined. Cardio has signed off. HR has remained stable. Elevated Trop: trops flat at 0.07, 0.08, 0.06. No c/o chest pain, no acute EKG changes, possibly due to uncontrolled HTN, BP 230's on arrival, on telemetry. Evaluated by cardiology, no further work up. UTI: U/a w/ UTI follow up cultures with pseudomonas aeruginosa. Infected sacral wound with PSAE and GNR, switched to aztreonam August 16, 2018 based on sensitivities. Antibiotics stopped 08/22/18 due to patient repeatedly removing IV. Refuses further IV. DM: Sliding scale w/ Accu-Cheks, hold Metformin for now. Hypoglycemia secondary to poor oral intake. Hypoglycemia protocol. Switch to regular diet for now; add Glucerna shakes. Sacral Decubitus Ulcer: Present on admission. Wound care consulted-recommending Santyl. Hypokalemia: Intermittent. Replace as indicated. Monitor. Accelerated Hypertension: BP not optimally controlled. Continued on Norvasc 10mg daily, HCTZ 25mg daily, lisinopril 10mg bid. Hydralazine prn. BP was still not well controlled, increased lisinopril to 20mg bid on 08/25. Improved at discharge. - Time Spent with Patient Total time spent providing and/or coordinating discharge services: Greater than 30 minutes - Quality: VTE Deep Vein Thrombosis/Pulmonary Embolism Present on Admission: No Exam Vital signs: Vital Signs 08/25/18 12:00 08/25/18 16:00 08/25/18 20:00 Temperature 97.4 F L 98.9 F Pulse Rate 67 59 L 66 Respiratory Rate 16 16 18 Blood Pressure 164/70 H 174/75 H 151/65 H Pulse Oximetry 98 98 97 08/25/18 20:45 08/26/18 00:00 08/26/18 03:21 Temperature 98.1 F 97.7 F Pulse Rate 69 71 88 Respiratory Rate 18 18 Blood Pressure 147/67 H 159/67 H Pulse Oximetry 95 98 08/26/18 07:49 08/26/18 07:57 Temperature 98.9 F Pulse Rate 63 65 Respiratory Rate 18 Blood Pressure 161/71 H Pulse Oximetry 97 Intake & Output 08/25/18 08/26/18 08/26/18 18:59 06:59 18:59 Other: # Voids 4 Date of Last Bowel Movement 08/25/18 # Bowel Movements 2 Narrative: GENERAL: Well-nourished, well-developed pleasant elderly female patient in [facility]. SKIN: Warm and dry. Stage II sacral decub with surrounding erythema -dressing in place. HEENT: Normocephalic. Atraumatic. Pupils equal and round. Mucous membranes pink and moist. CARDIOVASCULAR: Regular rate and rhythm. No murmur appreciated. RESPIRATORY: No accessory muscle use. Clear to auscultation. Breath sounds equal bilaterally. GASTROINTESTINAL: Abdomen soft, non-tender, nondistended. Normoactive bowel sounds x4. MUSCULOSKELETAL: No obvious deformities. Extremities without clubbing, cyanosis , or edema. NEUROLOGICAL: Awake and alert, oriented to person/place. Moving all extremities spontaneously. Normal speech. Results Procedures completed during hospitalization: none Labs on day of discharge: Labs from last 24 hours 08/26/18 08/25/18 08/25/18 08:18 20:49 17:59 POC Glucose 133 H 135 H 176 H 08/25/18 11:36 POC Glucose 317 H - Impressions ITS Impressions Chest X-Ray 08/14/18 17:07 CONCLUSION: 1. No focal consolidation. 2. Sharply marginated triangular opacity at the medial aspect of the right lung apex is presumed to be artifactual. 3. Redemonstrated right proximal humerus fracture. Head CT 08/14/18 17:12 CONCLUSION: 1. No acute findings in the brain. 2. Stable ischemic atrophy. . Sacrum and Coccyx X-Ray 08/14/18 17:12 CONCLUSION: Osteoporotic without displaced fracture. Degree of osteopenia makes detection of nondisplaced fractures difficult. <Brandan Adair - Last Filed: 08/26/18 15:41> Date of admission: 08/14/18 19:52 Primary care physician: George Zuñiga MD DS: Summary - Time Spent with Patient Total time spent providing and/or coordinating discharge services: Exam Vital signs: Vital Signs 08/25/18 16:00 08/25/18 20:00 08/25/18 20:45 Temperature 97.4 F L 98.9 F Pulse Rate 59 L 66 69 Respiratory Rate 16 18 Blood Pressure 174/75 H 151/65 H Pulse Oximetry 98 97 08/26/18 00:00 08/26/18 03:21 08/26/18 07:49 Temperature 98.1 F 97.7 F Pulse Rate 71 88 63 Respiratory Rate 18 18 Blood Pressure 147/67 H 159/67 H Pulse Oximetry 95 98 08/26/18 07:57 08/26/18 11:25 Temperature 98.9 F 98.4 F Pulse Rate 65 55 L Respiratory Rate 18 20 Blood Pressure 161/71 H 125/59 L Pulse Oximetry 97 99 Intake & Output 08/25/18 08/26/18 08/26/18 18:59 06:59 18:59 Other: # Voids 4 Date of Last Bowel Movement 08/25/18 # Bowel Movements 2 Results Labs on day of discharge: Labs from last 24 hours 08/26/18 08/26/18 08/25/18 11:41 08:18 20:49 POC Glucose 174 H 133 H 135 H 08/25/18 17:59 POC Glucose 176 H - Impressions ITS Impressions Chest X-Ray 08/14/18 17:07 CONCLUSION: 1. No focal consolidation. 2. Sharply marginated triangular opacity at the medial aspect of the right lung apex is presumed to be artifactual. 3. Redemonstrated right proximal humerus fracture. Head CT 08/14/18 17:12 CONCLUSION: 1. No acute findings in the brain. 2. Stable ischemic atrophy. . Sacrum and Coccyx X-Ray 08/14/18 17:12 CONCLUSION: Osteoporotic without displaced fracture. Degree of osteopenia makes detection of nondisplaced fractures difficult. - Additional Comments [employer] has declined option for SNF with PT. Arrangement SNF made through Medicaid, but family declines this due to cost. Family will accept patient at home with home health PT, given this situation. Discharge location changed to home with home health. Discharge Plan - Discharge Order Discharge Orders: Discharge Order (Routine); Ordered 08/26/18 Ordered By: Alethea Kamara - Discharge Details Anticipated Discharge Date: 08/26/18 Discharge Comment: Dave only recommends coverage for DC to home with home health - Physicians Team Primary Care Provider: George Zuñiga Attending Provider: Brandan Adair Other Providers: Tavo Kohler MD ; Glenn Herrera MD ; Dave Acosta ; [facility] ; [facility],[place]
--- NOTE | 2018-08-26 15:38 | P.DCO ---
- Physical Therapy Order: Evaluate and treat, Improve ambulation, Strength and gait training - Case Management Consult Case Management Consult-Home Health: Yes - Certification I have seen patient Christine Barone on 08/26/18. My clinical findings support the need for the requested home health care services because: Limited mobility due to disease progression, Deconditioned with increased weakness, Limited ability to care for self, High risk of falls I certify that my clinical findings support that this patient is homebound because: Post-op weakness, Unsteady gait/balance, Unsafe to leave home unassisted, Unable to use public transportation
== END 2018-08-26 18:04 | disposition home health service (06) ==
LOC: NEDA 16:42 → NEPC 16:42 → NEDA 20:40 → NEPHCDU 20:50
PROVIDERS: ADMIT Hospitalist; ATTEND Hospitalist
DX: R06.02 Shortness of breath; M53.3 Sacrococcygeal disorders, not elsewhere classified; I45.10 Unspecified right bundle-branch block; S42.201A Unspecified fracture of upper end of right humerus, initial encounter for closed fracture; L89.150 Pressure ulcer of sacral region, unstageable; E78.5 Hyperlipidemia, unspecified; I25.10 Atherosclerotic heart disease of native coronary artery without angina pectoris; M81.0 Age-related osteoporosis without current pathological fracture; N39.0 Urinary tract infection, site not specified; E11.649 Type 2 diabetes mellitus with hypoglycemia without coma; Z79.899 Other long term (current) drug therapy; B96.5 Pseudomonas (aeruginosa) (mallei) (pseudomallei) as the cause of diseases classified elsewhere; Z79.82 Long term (current) use of aspirin; W19.XXXA Unspecified fall, initial encounter; Z79.84 Long term (current) use of oral hypoglycemic drugs; I50.9 Heart failure, unspecified; R00.1 Bradycardia, unspecified; R55 Syncope and collapse; M79.631 Pain in right forearm; I11.0 Hypertensive heart disease with heart failure; I48.2 Chronic atrial fibrillation; B96.20 Unspecified Escherichia coli [E. coli] as the cause of diseases classified elsewhere; F03.90 Unspecified dementia, unspecified severity, without behavioral disturbance, psychotic disturbance, mood disturbance, and anxiety; R74.8 Abnormal levels of other serum enzymes